=== PATIENT | female | born 1960 | race African-American/Black ===

== ENCOUNTER 2023-10-14 22:54 | Inpatient (IN) | payer OTHER, SELFPAY ==
[2023-10-14] VITALS (12 sets, daily range): BP systolic 80–119; BP diastolic 52–80; BMI 25.7; BMI 28.0
[2023-10-14 19:45] LABS: Glucose - Point of Care 227 mg/dl (70-99)
[2023-10-14 20:22] LABS: AST (SGOT) 502 U/L (14-36); Alkaline Phosphatase 150 U/L (38-126); Blood Urea Nitrogen 18 mg/dl (7-17); Calcium 8.5 mg/dl (8.4-10.2); Carbon Dioxide 18 mmol/L (22-30); Chloride 107 mmol/L (98-107); Estimated Creatinine Clearance 43 ml/min; Glucose 237 mg/dl (70-99); Potassium 3.7 mmol/L (3.5-5.1); Sodium 136 mmol/L (135-145); Total Bilirubin 1.2 mg/dl (0.2-1.3); Total Protein 5.7 g/dl (6.3-8.2); eGFR 39.65
[2023-10-14 20:31] LABS: ALT (SGPT) 193 U/L (0-35)
[2023-10-14 20:53] LABS: % Basophils 0.5 % (0-2); % Eosinophils 0.2 % (0-6); % Immature Granulocytes 1.2 % (0-0.5); % Lymphocytes 6.3 % (20.5-51.1); % Monocytes 1.1 % (1.7-9.3); % Neutrophils 90.7 % (42.2-75.2); Absolute Basophils 0.1 10^3/uL (0-0.2); Absolute Immature Granulocytes 0.1 10^3/uL (0-0.05); Absolute Lymphocytes 0.7 10^3/uL (1.2-3.4); Absolute Monocytes 0.1 10^3/uL (0.1-0.6); Hematocrit 33.7 % (37.0-47.0); Hemoglobin 10.9 g/dL (12.0-16.0); Mean Corp Hgb Conc. 32.3 g/dL (33.0-37.0); Mean Corpuscular Hgb 27.7 pg (27.0-31.0); Mean Corpuscular Volume 85.5 fL (81.0-99.0); Mean Platelet Volume 12.6 fL (7.4-10.4); Nucleated Red Blood Cells % 0 %; Platelet Count 81 10^3/uL (130-400); Red Blood Cell Count 3.94 10^6/uL (4.20-5.40); Red Cell Dist. Width 13.6 % (11.5-14.5); White Blood Cell Count 11.1 10^3/uL (4.8-10.8)
--- NOTE | 2023-10-14 20:53 | ED.GENMED ---
History of Present Illness
General
Chief Complaint: Blood Pressure Problem
Source: patient
Exam Limitations: none
Time Seen by Provider: 10/14/23 20:20
Nursing documentation reviewed up to this point in time: agreed with
History of Present Illness
History of Present Illness:
The patient is a 62-year-old female with a past medical history of insulin-dependent diabetes who reports she has not been feeling well since yesterday. Patient reports that she feels lightheaded, fatigued, feels warm, and has right hip pain.
Patient also reports lack of appetite. She denies fever, abdominal pain, cough, chest pain or shortness of breath. Patient reports that her right hip pain was so severe that she was unable to walk today so her called 911. When paramedics
arrived, patient was found to be extremely hypotensive. Patient denies any injury to the hip. Patient reports she recently had a CAT scan done of her right ear and jaw area due to several weeks of right-sided jaw pain.
Past History
Past History
ED Past Medical History: Arrthythmia (History of SVT), Hypercholesterolemia and IDDM
ED Past Surgical History: Cardiac (Cardiac ablation in 2003) and Other (Spinal fusion in 1988, tubal ligation and 1999, a D&C in 2001,)
Social History
Tobacco: Non-smoker
Alcohol: None
Drug: None
Personal:
Living: with family
Employment: Employed
Family History
Family History: Diabetes and Hypertension
Review of Systems
Review of Systems
Allergies reviewed?: Yes
Other source history: family
All Other Systems: ROS reviewed and negative except as documented in HPI and ROS
Constitutional: Reports fatigue
EENT: Reports other (Chronic right-sided jaw pain)
Respiratory: Reports no symptoms
Cardiac: Reports no symptoms
ABD/GI: Reports anorexia
: Reports no symptoms
Musculoskeletal: Reports joint pain (Right hip pain)
Skin: Reports no symptoms
Neurological: Reports no symptoms
Endocrine: Reports no symptoms
Hematologic/Lymphatic: Reports no symptoms
Psychiatric: Reports no symptoms
Phy Exam
Physical Exam
Physical Exam:
Physical Exam
General: Patient appears flushed but in no acute distress
Neck: supple. Dry mucous membrane
Heart: Tachycardic
Lungs: no acute respiratory distress. clear bilaterally
Abdomen: normal bowel sounds. Mild right lower quadrant tenderness and right lower flank tenderness
Neuro: alert and oriented. no focal neurological deficits
Skin: no rash
Psychiatric: well kept. interactive and cooperative
Extremities: no edema. no calf tenderness. negative homans. good distal pulses. Patient able to fully flex and extend right hip with minimal discomfort. No deformity or erythema right hip.
Course
Orders/Labs/Results
Orders:
Orders
10/14/23 19:52
Alcohol Urgent
CMP [Comprehensive Metabolic Panel] Urgent
Complete Blood Count/With Diff Urgent
10/14/23 20:55
CT Abd/pelvis W Iv Cont Urgent
Comment:
Reason For Exam: hypotensive, increased LFTs, acute R hip pain
10/14/23 21:33
Lactic Acid Urgent
Blood Culture Urgent
LISSETT Source: Blood/Venous
Specimen Description:
10/14/23 21:44
Electrocardiogram (*1) Urgent
Reason for Study: Tachycardia
EKG- Treatment ONCE
10/14/23 21:54
Piperacillin/Tazo 4.5 Gram [Zosyn] 4.5 gram in 100 ml IV NOW
10/14/23 21:57
0.9% Sodium Chloride 1000 ml [Nss] 1,500 ml IV BOLUS
10/14/23 22:11
Urinalysis Reflex To Culture Urgent
Date Specimen was Collected: 10/14/23
Time Specimen was Collected: 22:10
Urine Microscopic Reflex Cult Urgent
Urine Culture Urgent
LISSETT Source: U
Specimen Description:
Date Specimen was Collected: 10/14/23
Time Specimen was Collected: 22:10
10/14/23 22:12
Add On- LAB Urgent
Tests Added?: alcohol
10/14/23 22:30
Admit/Transfer Patient As Directed
Co-Sign Provider:
Level of Care: Inpatient admission
Assign to:: IMU- Intermediate Care
Physician / Group: daniel
Diagnosis: sepsis uti
Reason for Hospitalization: uti
Expected length of stay greater than two midnights?: Yes
ELOS- Estimated Length of Stay in days: 2
I certify the patient meets the requirements for IP care: Yes
PRN Pain Medication Management As Directed
May give lesser potent ordered pain med per pt: Yes
preference::
Protocol:: Medication orders for pain may be administered in a
manner that supports deferring to patient preference
when the pt is:
- Requesting an ordered lesser potent pain medication.
Least to most potent pain medications are defined
as: acetaminophen < NSAID < tramadol < opioids
(morphine, oxycodone, hydromorphone).
- Requesting a lesser dose of the same medication IF
ORDERED.
- Requesting a less intrusive route of administration
if both routes are prescribed by the provider (PO <
IV).
10/14/23 22:31
Code Status As Directed
Resuscitation Status: Full Code
10/14/23 22:32
Vancomycin [Vancocin] 2,000 mg 0.9% Sodium Chloride 500 ml [Nss] 500 ml IV NOW
10/14/23 23:00
Flush (0.9% Sodium Chloride) [Flush (Nss)] See Dose Instructions IV PER PROTOCOL
Abnormal Lab Results
10/14/23 10/14/23 10/14/23
19:44 19:52 21:33
WBC 11.1 H 10^3/uL
(4.8-10.8)
RBC 3.94 L 10^6/uL
(4.20-5.40)
Hgb 10.9 L g/dL
(12.0-16.0)
Hct 33.7 L %
(37.0-47.0)
MCHC 32.3 L g/dL
(33.0-37.0)
Plt Count 81 L 10^3/uL
(130-400)
MPV 12.6 H fL
(7.4-10.4)
Abs Immat Gran (auto) 0.1 H 10^3/uL
(0-0.05)
Absolute Neuts (auto) 10.0 H 10^3/uL
(1.4-6.5)
Absolute Lymphs (auto) 0.7 L 10^3/uL
(1.2-3.4)
Immature Gran % 1.2 H %
(0-0.5)
Neutrophils % 90.7 H %
(42.2-75.2)
Lymphocytes % 6.3 L %
(20.5-51.1)
Monocytes % 1.1 L %
(1.7-9.3)
Carbon Dioxide 18 L mmol/L
(22-30)
BUN 18 H mg/dl
(7-17)
Creatinine 1.5 H mg/dL
(0.6-1.0)
Glucose 237 H mg/dl
(70-99)
Lactic Acid 5.1 H* mmol/L
(0.7-2.0)
AST 502 H* U/L
(14-36)
ALT 193 H U/L
(0-35)
Alkaline Phosphatase 150 H U/L
(38-126)
Total Protein 5.7 L g/dl
(6.3-8.2)
Albumin 3.0 L g/dl
(3.5-5.0)
Ur Occult Blood Reflex
Leukocyte Esterase Rfl
Urine RBC
Urine WBC (Reflex)
Urine Bacteria (Reflex)
Urine Albumin (Reflex)
POC Glucose 227 H mg/dl
(70-99)
10/14/23
22:11
WBC
RBC
Hgb
Hct
MCHC
Plt Count
MPV
Abs Immat Gran (auto)
Absolute Neuts (auto)
Absolute Lymphs (auto)
Immature Gran %
Neutrophils %
Lymphocytes %
Monocytes %
Carbon Dioxide
BUN
Creatinine
Glucose
Lactic Acid
AST
ALT
Alkaline Phosphatase
Total Protein
Albumin
Ur Occult Blood Reflex 4+ A
(Negative)
Leukocyte Esterase Rfl 2+ A
(Negative)
Urine RBC 21-25 A /HPF
(0-2)
Urine WBC (Reflex) >100 A /HPF
(0-5)
Urine Bacteria (Reflex) Moderate A
(Negative)
Urine Albumin (Reflex) 1+ A
(Neg - Trace)
POC Glucose
10/14/23 19:52
10/14/23 19:52
Vital Signs
Initial and Last Documented VS:
Initial Vital Signs
Pulse Resp Pulse Ox
122 20 98
10/14/23 19:38 10/14/23 19:38 10/14/23 19:38
Last Documented Vital Signs
Temp Pulse Resp BP Pulse Ox
98.9 F 127 22 100/60 100
10/14/23 22:21 10/14/23 22:30 10/14/23 22:30 10/14/23 22:30 10/14/23 22:30
MDM/Problems Addressed
Differential Diagnosis Includes:
Acute viral illness, sepsis, cancer with mets to liver
MDM/Problems Addressed:
Patient presents with acute fatigue, increased LFTs and right hip pain
Chronic conditions affecting care: DM
Acute Exacerbation and/or Progression of Chronic Illness: DM
*Pulse Oximetry
Patient hypoxic: no
*EKG
Interpreted by ED Provider?: Yes
Interpretation: abnormal
Comparison EKG: no comparison EKG present
Rate: tachycardiac
Rhythm: sinus
[place]: left axis deviation
Interval: normal interval
QRS Pattern: normal QRS
Ischemia: non-specific ST changes
*Machine Silver Stripper Interpretation
Rate: tachycardiac
Interpretation: abnormal
Rhythm: sinus
*Critical Care Note
Total Time (30-74mins, 75-104mins- exclusive of procedures): 65 min
comment:
65 minutes of critical care given to the patient including frequent reassessments of her mental status, heart rate, blood pressure, reviewing her CT report, speaking to the family, the patient and the hospitalist
Data Reviewed
Review of Other/Old Records Reveals: Testing (Cardiac stress test done in 2011 shows no significant abnormalities)
Source: patient and spouse
ED Attending Note
-
Portions of this chart may have been created with voice recognition software.� Occasional wrong word or��sound alike� substitutions may have occurred due to the inherent limitations of voice recognition software.
Discharge Plan
Departure
Patient Disposition: Admit
Date of Disposition: 10/14/23
Time of Disposition: 22:00
Admit to: Telemetry
Presentation/result/management discussed w/ accepting MD/DO: Hospitalist
Patient with high blood pressure during this ER visit?: No
Condition: Fair
Discharge Problem:
Elevated LFTs, Sepsis, UTI (urinary tract infection)
Interventions
Interventions:
*Risk Screen - Suicide Last Done: 10/14/23 19:47
*General Assessment Last Done: 10/14/23 19:40
*Neglect/Abuse Screening Last Done: 10/14/23 19:47
ED- Fall Risk Assessment Last Done: 10/14/23 19:47
*ED COVID-19 Vaccine History Last Done: 10/14/23 19:40
[2023-10-14 21:55] LABS: Lactic Acid 5.1 mmol/L (0.7-2.0)
[2023-10-14] MEDS: ZOSYN 100 IV (22:15)
[2023-10-14] MEDS: NSS 1500 IV (22:15)
[2023-10-14 22:25] LABS: Urine Albumin 1+ (Neg - Trace); Urine Bilirubin Negative (Negative); Urine Character Slightly Cloudy (Clear); Urine Color Yellow; Urine Glucose Negative (Negative); Urine Ketone Negative (Negative); Urine Leukocyte 2+ (Negative); Urine Nitrite Negative (Negative); Urine Occult Blood 4+ (Negative); Urine Specific Gravity 1.005 (<1.030); Urine Urobilinogen 1+ (Neg - 1+)
[2023-10-14 22:41] LABS: Urine Bacteria Moderate (Negative); Urine Red Blood Cell 21-25 /HPF (0-2); Urine Squamous Cell >30 /LPF (Few); Urine White Cell >100 /HPF (0-5)
--- NOTE | 2023-10-14 22:41 | HPS.HSE ---
Family Physician
-
Family Physician: Denise Johnson
Chief Complaint
-
right hip pain
History of Present Illness
62-year-old female past medical history of diabetes, SVT, hypercholesteremia, presenting for confusion, lightheadedness, fatigue, feeling warm and right hip pain since yesterday. She also has lack of appetite. Pain of the right hip radiates to her
right groin. She had vomiting and some loose stools today. Denies fever, cough, chest pain or shortness of breath. Pain is so severe that she was unable to walk today and has been called 911. Paramedics arrived she was extremely hypotensive. She
denies any hip injury. Denies any urinary symptoms such as burning or frequency or blood in the urine.
He has a history of kidney stones and states that she had similar pain after prior urological interventions in the past.
Denies smoking or alcohol use.
Medical History
Past Medical History
Past Medical History: Reports Other (diabetes, SVT, hypercholesteremia)
Past Surgical History: Reports Other ( Cardiac (Cardiac ablation in 2003) and Other (Spinal fusion in 1988, tubal ligation and 1999, a D&C in 2001,))
Social History
Tobacco: Non-smoker
Alcohol: None
Drug: None
Family History
Family History: Not pertinent
Allergies / Home Medications
Allergies reflects when Allergies were last updated in [employer].
Home Medications with original date entered in [employer]
Allergy/Medication List:
Allergies
Allergy/AdvReac Type Severity Reaction Status Date / Time
No Known Allergies Allergy Verified 12/13/16 19:11
Home Medications
acetaminophen 500 mg tablet (Tylenol Extra Strength) 500 mg PO DAILYPRN PRN mild pain 10/09/11
cyanocobalamin (vitamin B-12) 500 mcg tablet (Vitamin B-12) 1,000 mcg PO DAILY 09/19/15
clobetasol 0.05 % topical cream 1 applic topical DAILYPRN PRN eczema 10/14/23
gabapentin 800 mg tablet 800 mg PO BID 10/14/23
insulin glargine 100 unit/mL (3 mL) subcutaneous pen (Lantus Solostar U-100 Insulin) 0 unit SC DAILY 10/14/23
lidocaine 5 % topical patch 1 patch topical DAILYPRN PRN lower back 10/14/23
linaclotide 145 mcg capsule (Linzess) 145 mcg PO DAILY 10/14/23
oxycodone-acetaminophen 5 mg-325 mg tablet 1 tab PO Q8HPRN PRN severe pain 10/14/23
pantoprazole 40 mg tablet,delayed release 40 mg PO DAILY 10/14/23
rosuvastatin 20 mg tablet 20 mg PO DAILY 10/14/23
tirzepatide 7.5 mg/0.5 mL subcutaneous pen injector (Mounjaro) 7.5 mg SC WE 10/14/23
Review of Systems
-
History Source: Patient
A 12 point ROS was completed and negative except as noted: Yes
Constitutional: Reports No Symptoms
EENT: Reports No Symptoms
Respiratory: Reports No Symptoms
Cardiac: Reports No Symptoms
Abdomen/GI: Reports See HPI
: Reports See HPI
Musculoskeletal: Reports No Symptoms
Skin: Reports No Symptoms
Neurological: Reports No Symptoms
Endocrine: Reports No Symptoms
Hematologic/Lymphatic: Reports No Symptoms
Psych: Reports No Symptoms
Physical Exam
Vital Signs
Vital Signs
Temp Pulse Resp BP Pulse Ox
98.9 F 127 22 100/60 100
10/14/23 22:21 10/14/23 22:30 10/14/23 22:30 10/14/23 22:30 10/14/23 22:30
Physical Exam
General: Well Developed, Well Nourished and No Apparent Distress
HEENT: NormoCephalic, Moist mucous membranes and Atraumatic
Respiratory: Clear
Cardiac: S1/S2 and Regular Rhythm; No Murmur or Rub
GI: Soft, Non Tender, Non Distended and Normal Bowel Sounds; No Organomegaly
Rectal: Deferred by Provider
Musculoskeletal: No Clubbing, No Cyanosis and No Edema
Skin: No Rash
Neuro: Nonfocal/grossly intact
Laboratory Results
-
10/14/23 19:52
10/14/23 19:52
Laboratory Results
Lactic Acid 5.1 mmol/L (0.7-2.0) H* 10/14/23 21:33
Total Bilirubin 1.2 mg/dl (0.2-1.3) 10/14/23 19:52
AST 502 U/L (14-36) H* 10/14/23 19:52
ALT 193 U/L (0-35) H 10/14/23 19:52
Alkaline Phosphatase 150 U/L (38-126) H 10/14/23 19:52
Data Reviewed
-
Lab Data: Labs Reviewed by me
Old Records: Reviewed
Impression/Plan
-
IMPRESSION:
PLAN:
# Sepsis (hypotension, leukocytosis, tachycardia, lactic acidosis) likely secondary to UTI
-Urinalysis pending
-CT abdomen pelvis shows either crossed fused renal ectopia which is worsened kidney, small volume air in the proximal ureter and urinary bladder of uncertain etiology which could be secondary to urinary tract infection or iatrogenic air from
ureterovesicular reflux/urinary tract fistula, nonobstructing right renal calculus
-Blood culture
-IV fluids
-Vanco and Zosyn given, continue Zosyn
-Urology consulted, no role for urgent intervention at this time
# Transaminitis likely secondary to shock liver from hypotension
-No bilirubin elevation to suggest CBD stone
-Continue to monitor
# Acute kidney injury
-IV fluids
Type 2 diabetes
-Continue Levemir but reduce from 20 units to 10 units
-Insulin sliding scale
History of SVT
-Continue metoprolol
Hypercholesterolemia
-Continue statin
Full code
DVT prophylaxis�heparin
Regular diet
[2023-10-14 22:47] LABS: Alcohol None Detected
[2023-10-14] MEDS: VANCOCIN 540 MG IV (23:07)
[2023-10-15] VITALS (36 sets, daily range): BP systolic 69–161; BP diastolic 45–132
[2023-10-15] MEDS: NSS 1000 IV ×3 (00:17→16:43)
--- NOTE | 2023-10-15 01:07 | PTCARENOTE ---
Received pt from ED RN. Pt pulled from the stretcher to our bed. Pt is AAOx3. Sinus tach on the monitor. On RA O2 sat 95%, lungs clear. Incont of stool @ times. NS infusing @ 100 ml/hr. CHG bath provided. Pt is laying comfortable in bed with call
schaffer in reach.
[2023-10-15 02:18] LABS: Lactic Acid 5.6 mmol/L (0.7-2.0)
--- NOTE | 2023-10-15 02:23 | PTCARENOTE ---
Pt with a bloody BM, ASH Silva notified, Heparin on hold
[2023-10-15] MEDS: ZOSYN 50 IV ×4 (04:03→20:44)
[2023-10-15 06:15] LABS: Hematocrit 36.6 % (37.0-47.0); Hemoglobin 12.2 g/dL (12.0-16.0); Mean Corp Hgb Conc. 33.3 g/dL (33.0-37.0); Mean Corpuscular Hgb 27.5 pg (27.0-31.0); Mean Corpuscular Volume 82.6 fL (81.0-99.0); Mean Platelet Volume 11.4 fL (7.4-10.4); Platelet Count 93 10^3/uL (130-400); Red Blood Cell Count 4.43 10^6/uL (4.20-5.40); Red Cell Dist. Width 14.1 % (11.5-14.5); White Blood Cell Count 21.1 10^3/uL (4.8-10.8)
[2023-10-15 06:19] LABS: Lactic Acid 4.5 mmol/L (0.7-2.0)
[2023-10-15 06:20] LABS: ALT (SGPT) 146 U/L (0-35); AST (SGOT) 253 U/L (14-36); Alkaline Phosphatase 120 U/L (38-126); Blood Urea Nitrogen 19 mg/dl (7-17); Calcium 7.8 mg/dl (8.4-10.2); Carbon Dioxide 19 mmol/L (22-30); Chloride 112 mmol/L (98-107); Estimated Creatinine Clearance 50 ml/min; Glucose 212 mg/dl (70-99); Potassium 3.6 mmol/L (3.5-5.1); Sodium 139 mmol/L (135-145); Total Bilirubin 0.9 mg/dl (0.2-1.3); Total Protein 5.9 g/dl (6.3-8.2); eGFR 47.08
[2023-10-15] MEDS: LOPRESSOR 5 MG IV (06:22)
[2023-10-15] MEDS: TYLENOL 650 MG PO ×2 (06:23→23:48)
--- NOTE | 2023-10-15 06:24 | PTCARENOTE ---
Pt HR 120s-130s, with activity HR goes into high 140s. ACCREDITATION SPECIALIST Silva notified, PRN Lopressor given (see MAR).
[2023-10-15 06:44] LABS: Absolute Neutrophils -Man Diff 17.7 10^3/uL (1.4-6.5); Band Neutrophils 16 % (0-3); Lymphocytes 3 % (20-51); Metamyelocytes 7 % (-); Monocytes 6 % (2-9); Segmented Neutrophils 68 % (42-75); Total Cells Counted 100
[2023-10-15 06:46] LABS: Normal RBC Morphology Yes; Platelets Checked Yes; Toxic Granulation 1+; Vacuolated Segs Occasional
[2023-10-15] MEDS: NSS 500 IV ×2 (08:22→09:43)
[2023-10-15 08:30] LABS: Glycohemoglobin (HgbA1c) 7.6 % (4.0-5.6)
--- NOTE | 2023-10-15 09:00 | W.PN.UPDATE ---
Addendum entered and electronically signed by Daniel Hernandez MD 10/15/23 09:15:
Correction-UA specimen was obtained by straight cath instrumentation in the ER yesterday-might explain the air in the bladder and the right ureter.
Original Note:
Update Note
Progress Note Update
I saw and evaluated the patient. I reviewed the resident�s note and agree with findings and plan as documented in the resident�s note.
Patient this morning feels weak and tired. Feeling lightheaded.
No nausea or vomiting this am.
Rt flank pain radiating to right groin is better with pain medications.
Urine was dark but no dysuria or frequency.
UTI and stone issue needing surgery in like last year. Known to have abnormal kidney anatomy.
One day prior coming to ER she had a CT of her face/neck for right jaw pain - was going on for weeks;PCP ordered CT and made a referral to ENT. No jaw pain today at rest.
Pt is tachy and hypotensive this morning. Alert and oriented. Got IV lopressor early hours of this morning . Rhythm seems to be SR on monitor.
Assessment persistent. Tachycardic.
Few crackles in the left lung.. Saturating well on room air. No respiratory complaints.
Right flank tenderness elicited.
No pain with the right hip joint movements.
Labs noted
Septic shock with suspected source with possible pyelonephritis . Abnormal urinalysis, right flank pain and tenderness, structurally abnormal kidney. There is some air in the right ureter and bladder of unclear etiology with UTI in
differential( she didnt have any bladder catherization known). No obstruction renal stone evident.
Will challange with another fluid bolus and consider vasopressors if needed. CW emp abx . Consult ID . Urology input pending. Culture data pending.
KATEY noted -supsected hemodynamics related. Improved since yesterday. Continue to follow.
Lactic acidosis secondary to sepsis. Continue to monitor hemodynamics and response to IV fluids
Transaminitis noted may be hemodynamics related versus sepsis. No biliary issue evident on the CT of the abdomen pelvis. No right upper quadrant tenderness.
Total time spent on today's encounter was 52 minutes which included time spent in counseling the patient regarding diagnosis and treatment plan as listed above, goals of care, and symptom management. Case was discussed with nursing staff,
specialists . All labs and imaging personally reviewed by me. Remainder the time spent in detailed review of previous records, lab data, imaging, and other medical provider documentation.
[2023-10-15 09:02] LABS: Glucose - Point of Care 182 mg/dl (70-99)
[2023-10-15] MEDS: NEURONTIN 800 MG PO ×2 (09:04→20:41)
[2023-10-15] MEDS: CRESTOR 20 MG PO (09:04)
[2023-10-15] MEDS: VITAMIN B-12 1000 MCG PO (09:04)
[2023-10-15] MEDS: PROTONIX 40 MG PO (09:04)
[2023-10-15] MEDS: LANTUS 0.1 UNITS SC (09:04)
[2023-10-15] MEDS: LINZESS 145 MCG PO (09:12)
[2023-10-15] MEDS: NOVOLOG FLEXPEN-LOW RESISTANCE 1 UNITS SC ×3 (09:30→16:49)
--- NOTE | 2023-10-15 09:38 | W.PN.URO.CBU ---
Today's Communication / Plan
-
No role for urgent urologic intervention
Await blood and urine cultures
Assessment / Plan
-
History of nephrolithiasis: possible passed stone. No evidence of ureteral obstruction presently
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
Diagnosis
-
Date of Service: October 15, 2023
-
Patient Diagnosis:
Sudden onset of right flank to hip pain yesterday with chills but w/o fever, dysuria, urgency, frequency or gross hematuria
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
Air noted in bladder and right upper renal unit collecting system (patient was reportedly straight-cathed in the ED yesterday)
History of nephrolithiasis: s/p ureteroscopic laser lithotripsy July 2022 ([facility])
Subjective
-
Fatigued
Right flank/hip pain responding to narcotic
No voiding dysfunction
Objective
-
Vital Signs
Temp Pulse Resp BP Pulse Ox
98.1 F 123 21 73/49 95
10/15/23 07:16 10/15/23 08:05 10/15/23 08:05 10/15/23 08:05 10/15/23 08:05
Intake and Output
10/14/23 10/15/23 10/16/23
06:59 06:59 06:59
Intake Total 700 / 700
Balance 700 / 700
Intake:
IV fluids (Total) 700 / 700
Other:
Number of approximated SMALL 1
amounts of urine
Laboratory Results
10/15/23 05:49
10/15/23 05:49
CT scan images personally reviewed
Review of Systems
-
Constitutional: Fatigue
Respiratory: No Symptoms
Cardiac: No Symptoms
Abdomen/GI: Abdominal Pain
: No Symptoms
Neurological: No Symptoms
Physical Exam
-
General - ill-appearing, no acute distress
Abdomen - soft, non-tender
Skin - warm & dry with no rash
Neuro - AOx3, no motor deficits
Counseling
-
Continue broad spectrum antibiotics
Await blood and urine cultures
Consider repeat imaging in 24 to 48 hours if clinical condition deteriorates
Will follow
--- NOTE | 2023-10-15 09:56 | W.PN.HOSP.TC ---
Today's Communication/Plan
-
Monitor blood pressure
Awaiting blood culture and urine culture results
Continue antibiotics
Hold lopressor
Start Levophed
Assessment / Plan
Assessment / Plan
IMPRESSION: 62-year-old female with past medical history of diabetes, SVT, nephrolithiasis presenting to the ED with right flank pain radiating to the right groin, lack of appetite lightheadedness, chills and fatigue. SIRS positive in ED
PLAN:
Sepsis
Likely due to urinary tract infection
U/C pending
B/C pending
U/A�SG 1.005, moderate bacteria, esterase 2+, WBC >100, RBC 21-25
Continue Zosyn (day 2)
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 Small volume proximal ureter and urinary bladder of uncertain etiology (could be secondary to UTI). At least one obstructing right renal calculus, no
cholelithiasis or biliary tract dilatation.
UA specimen was obtained by straight cath instrumentation in the ED likely explaining small-volume air in the urinary tract.
Urology consulted�no role for urgent intervention, await blood and urine cultures
Hypotension
Hold Lopressor
Bolus IV fluid, patient did respond to IV fluid therapy, will start Levophed
Monitor BP
Transaminitis
Likely secondary to shock liver from hypotension
Liver enzymes downtrending
No bilirubin elevation, no evidence of biliary duct dilatation on abdominal pelvic CT
History of SVT
Patient did not use metoprolol for the last year
Hold metoprolol
Hyperlipidemia
Continue statin
Full code
DVT prophylaxis heparin
Anticipated Discharge: > 48 hours
Subjective/Interval History
-
Date of Service: October 15, 2023
Objective Data
-
Labs:
Laboratory Results
10/15/23
05:49
WBC 21.1 H
Hgb 12.2
Hct 36.6 L
Plt Count 93 L
Sodium 139
Potassium 3.6
Chloride 112 H
Carbon Dioxide 19 L
BUN 19 H
Creatinine 1.3 H
Glucose 212 H
Calcium 7.8 L
Total Bilirubin 0.9
AST 253 H
ALT 146 H
Alkaline Phosphatase 120
Vital Signs:
Vital Signs
Temp Pulse Resp BP Pulse Ox
98.1 F 123 21 73/49 95
10/15/23 07:16 10/15/23 08:05 10/15/23 08:05 10/15/23 08:05 10/15/23 08:05
I&O
10/14/23 10/15/23 10/16/23
06:59 06:59 06:59
Intake Total 700 / 700
Balance 700 / 700
Review of Systems
-
History Source: Patient
Constitutional: Reports Weakness
EENT: Reports No Symptoms Reported
Respiratory: Reports No Symptoms
Cardiac: Reports No Symptoms
Abdomen/GI: Reports Other (Right flank pain )
Breast: Reports No Symptoms
Genitourinary: Reports No Symptoms
Musculoskeletal: Reports No Symptoms
Skin: Reports No Symptoms
Neuro: Reports Lightheadedness
Endocrine: Reports No Symptoms
Hematologic / Lymphatic: Reports No Symptoms
Allergy / Immunology: Reports No Symptoms
Physical Exam
-
Respiratory: Clear to Auscultation
Cardiac: Regular Rhythm
GI: Soft, Nontender, Nondistended and Normal Bowel Sounds
Genito-urinary: Costovertebral Angle Tend
Musculoskeletal: No Edema
Neuro: Awake, Alert and Oriented
Hematologic / Lymphatic: No Lymphadenopathy
Psych: Calm
--- NOTE | 2023-10-15 10:13 | PTCARENOTE ---
Received pt from table games shift manager RN. Pt AAOx3 but drowsy. Sinus Tach on groundhand. HRs 120s. Pt received PRN IV Lopressor 5mg at 0622 for HR > 100 bpm. At 0805 pt BP 73/49. Pt reports feeling tired and dizzy when sitting up. Dr. Hernandez notified.
NSS 500mL IV bolus ordered over one hour. After bolus pt BP 72/[address] Hernandez aware. Second NSS 500mL IV bolus ordered over one hour. Bolus currently infusing. Will recheck BP after bolus complete. If BPs not improved, plan to start pt on
Levo gtt to help with BP support. Pt resting in bed, call schaffer in reach.
[2023-10-15] MEDS: LEVOPHED 250 IV (11:41)
--- NOTE | 2023-10-15 12:04 | PTCARENOTE ---
Pt BP not improved after second IVF bolus. Levo gtt ordered and started at 2mcg/min through L wrist PIV inserted today. PIV with blood return. Pt educated to notify staff if any discomfort/swelling at PIV site. Titrating Levo gtt to MAP > 65.
[2023-10-15 12:17] LABS: Glucose - Point of Care 173 mg/dl (70-99)
--- NOTE | 2023-10-15 14:30 | CON.ID ---
Consultation
-
Date/Time Consultation Requested: 10/15/2023 08:33
Date/Time Consultation Performed: 10/15/2023 1400
Requesting Provider: Dr. Hernandez
Performing Provider: Dr. Mathew
Reason for Consultation: Complicated urinary tract infection
Chief Complaint / Past History
History of Present Illness
Alejandrina Pratt is a 8-year-old female with a significant past medical history of DM being evaluated at the request of Dr. Hernandez in regards to a complicated urinary tract infection. History is obtained from chart review, along with patient
interview.
The patient presents [facility] in the evening on 10/13 secondary to feeling unwell. At presentation she reported feeling lightheaded and warm and complained of generalized fatigue and some right hip pain. She reports that her right hip pain
was so severe that she was unable to ambulate and her called EMS. When they arrived they found her hypotensive, and she was emergently transported to the hospital. Here, she was found to be hypotensive, and have a leukocytosis, but she was
not febrile. Laboratory workup revealed lactic acidosis, and suspected urinary tract infection. She was started on empiric antibiotics, and cultures were obtained.
Infectious Diseases is asked to comment upon further antimicrobial management.
Currently, the patient reports ongoing lightheadedness, along with significant fatigue, but he notes that right flank discomfort has improved. She denies any history of dysuria. She denies any hematuria. She does report a prior history of
nephrolithiasis and that stones needed to be retrieved.
Past History
Additional Past Medical History:
DM
Dyslipidemia
Hx arrhythmia (SVT)
Additional Past Surgical History:
Cardiac ablation (2003)
Spinal fusion (1988)
Tubal ligation
D&C
Gastric sleeve
Ureteroscopy
Allergy History:
No Known Allergies Allergy (Verified 12/13/16 19:11)
Medications Reviewed: Yes
Current Antibiotics:
Zosyn 3.375 g IV every 6 hours
Social History
Tobacco: Non-Smoker
Alcohol: None
Drug: None
Personal:
Living: With Family
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
Family History
Family History: Not Pertinent
Review of Systems
Vital Signs
Temp Pulse Resp BP Pulse Ox
98.4 F 128 11 101/70 99
10/15/23 11:16 10/15/23 14:00 10/15/23 14:00 10/15/23 14:00 10/15/23 12:36
Physical Exam
Physical Exam
Constitutional: No Acute Distress, Comfortable and Non-toxic
Head: Normocephalic
Eyes: No Conjunctival Hemorrhage and Sclera Anicteric
Oral: No Thrush and No Ulcers
Cardiovascular: Regular Rate and S1/S2; Negative S3/S4 or Murmur
Pulmonary: Clear and Non Labored; Negative Wheezes, Rales or Rhonchi
Gastrointestinal: Soft, Non Tender and Non Distended
Genito-Urinary: CVA Tenderness (mild right sided)
Extremities: Negative Edema, Cyanosis or Erythema
Skin: Warm and Dry; Negative Rash or Jaundice
Neurological: Awake, Alert and Oriented
Psychological: Calm
Lab / Diagnostic Study Results
10/15/23 05:49
10/15/23 05:49
Abs Immat Gran (auto) 10^3/uL (0-0.05) 10/15/23 05:49
Absolute Neuts (auto) 10^3/uL (1.4-6.5) 10/15/23 05:49
Absolute Lymphs (auto) 10^3/uL (1.2-3.4) 10/15/23 05:49
Absolute Monos (auto) 10^3/uL (0.1-0.6) 10/15/23 05:49
Absolute Basos (auto) 10^3/uL (0-0.2) 10/15/23 05:49
Total Counted 100 10/15/23 05:49
Immature Gran % % (0-0.5) 10/15/23 05:49
Neutrophils % % (42.2-75.2) 10/15/23 05:49
Lymphocytes % % (20.5-51.1) 10/15/23 05:49
Monocytes % % (1.7-9.3) 10/15/23 05:49
Eosinophils % % (0-6) 10/15/23 05:49
Basophils % % (0-2) 10/15/23 05:49
Abs Neuts (Manual) 17.7 10^3/uL (1.4-6.5) H 10/15/23 05:49
Segmented Neutrophils 68 % (42-75) 10/15/23 05:49
Band Neutrophils 16 % (0-3) H 10/15/23 05:49
Lymphocytes (Manual) 3 % (20-51) L 10/15/23 05:49
Lactic Acid 4.5 mmol/L (0.7-2.0) H* 10/15/23 05:49
Ur Squamous Epith Cells >30 /LPF (Few) 10/14/23 22:11
Microbiology Results
Micro:
10/14/23 22:11 Urine Culture - Pending
Urine
10/14/23 21:33 Blood Culture - Pending
Blood/Venous
Imaging:
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 There is marked residual contrast within the urinary tract including the urinary bladder. A small volume of air in the
proximal ureter and urinary bladder of uncertain etiology. Likely at least 1 nonobstructing right renal calculus, but evaluation limited by residual contrast from CT of the prior day. No findings to suggest cholelithiasis or biliary tract
dilatation. Prior gastric surgery noted. Marked beam hardening artifact from metal hardware in the lumbar spine. Please see full dictation for additional detail. Film personally reviewed.
Assessment / Plan
Leukocytosis
Suspected urinary tract infection
Lactic acidosis
KATEY
Transaminitis
DM
Dyslipidemia
Hx arrhythmia (SVT)
Recommendations:
Continue with empiric Zosyn for the present.
Urine culture is currently pending, as are blood cultures.
Monitor white count and temperature. Current leukocytosis likely reactive.
Patient also reporting some diarrhea. C. diff testing to be performed.
[2023-10-15 16:06] LABS: Lactic Acid 3.7 mmol/L (0.7-2.0)
[2023-10-15 16:59] LABS: Glucose - Point of Care 191 mg/dl (70-99)
[2023-10-15 20:16] LABS: Lactic Acid 4.8 mmol/L (0.7-2.0)
--- NOTE | 2023-10-15 20:58 | PTCARENOTE ---
Pt tachy HR 130s-140s, reports say to hold Lopressor. ASH Marie notified.
[2023-10-15] MEDS: LR 500 IV (21:45)
--- NOTE | 2023-10-15 22:00 | PTCARENOTE ---
Pt lactic 4.8, ASH Marie notified, LR bolus ordered. Will recheck per protocol.
[2023-10-15 22:04] LABS: Glucose - Point of Care 407 mg/dl (70-99)
[2023-10-15 23:29] LABS: Glucose 205 mg/dl (70-99); Lactic Acid 3.9 mmol/L (0.7-2.0)
[2023-10-16] VITALS (24 sets, daily range): BP systolic 78–136; BP diastolic 52–87
[2023-10-16] MEDS: ZOSYN 50 IV ×2 (03:24→11:19)
[2023-10-16 03:38] LABS: Hematocrit 32.9 % (37.0-47.0); Hemoglobin 11.1 g/dL (12.0-16.0); Mean Corp Hgb Conc. 33.7 g/dL (33.0-37.0); Mean Corpuscular Hgb 27.3 pg (27.0-31.0); Mean Platelet Volume 12.2 fL (7.4-10.4); Platelet Count 95 10^3/uL (130-400); Red Blood Cell Count 4.06 10^6/uL (4.20-5.40); Red Cell Dist. Width 14.1 % (11.5-14.5); White Blood Cell Count 20.9 10^3/uL (4.8-10.8)
[2023-10-16 03:59] LABS: Absolute Neutrophils -Man Diff 18.8 10^3/uL (1.4-6.5); Band Neutrophils 8 % (0-3); Lymphocytes 5 % (20-51); Metamyelocytes 2 % (-); Monocytes 2 % (2-9); Myelocytes 1 % (-); Normal RBC Morphology Yes; Platelets Checked Yes; Segmented Neutrophils 82 % (42-75); Total Cells Counted 100
[2023-10-16 04:02] LABS: Lactic Acid 3.6 mmol/L (0.7-2.0)
[2023-10-16 04:19] LABS: ALT (SGPT) 95 U/L (0-35); AST (SGOT) 89 U/L (14-36); Albumin 2.7 g/dl (3.5-5.0); Alkaline Phosphatase 88 U/L (38-126); Blood Urea Nitrogen 22 mg/dl (7-17); Calcium 7.7 mg/dl (8.4-10.2); Carbon Dioxide 17 mmol/L (22-30); Chloride 114 mmol/L (98-107); Estimated Creatinine Clearance 55 ml/min; Glucose 167 mg/dl (70-99); Potassium 3.5 mmol/L (3.5-5.1); Sodium 140 mmol/L (135-145); Total Bilirubin 0.8 mg/dl (0.2-1.3); Total Protein 5.5 g/dl (6.3-8.2); eGFR 51.82
[2023-10-16] MEDS: NSS 1000 IV (05:18)
[2023-10-16 07:57] LABS: Glucose - Point of Care 207 mg/dl (70-99)
[2023-10-16 08:09] LABS: Glucose - Point of Care 110 mg/dl (70-99)
[2023-10-16] MEDS: NOVOLOG FLEXPEN-LOW RESISTANCE SC ×3 (08:35→17:45)
[2023-10-16] MEDS: CRESTOR 20 MG PO (08:36)
[2023-10-16] MEDS: PROTONIX 40 MG PO (08:36)
[2023-10-16] MEDS: NEURONTIN 800 MG PO ×2 (08:36→20:30)
[2023-10-16] MEDS: VITAMIN B-12 1000 MCG PO (08:36)
[2023-10-16] MEDS: LANTUS 0.1 UNITS SC (08:36)
--- NOTE | 2023-10-16 09:12 | W.PN.URO.CBU ---
Today's Communication / Plan
-
Continue current care plan
Await culture results
Assessment / Plan
-
History of nephrolithiasis: possible passed stone. No evidence of ureteral obstruction presently
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
---
Development of urine urgency with incontinence and w/o dysuria raises the possibility patient is in the midst of passing a stone
Diagnosis
-
Date of Service: October 16, 2023
-
Patient Diagnosis:
Sudden onset of right flank to hip pain yesterday with chills but w/o fever, dysuria, urgency, frequency or gross hematuria
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
Air noted in bladder and right upper renal unit collecting system (patient was reportedly straight-cathed in the ED yesterday)
History of nephrolithiasis: s/p ureteroscopic laser lithotripsy July 2022 ([facility])
Subjective
-
Patient with urine urgency w/o dysuria
Objective
-
Vital Signs
Temp Pulse Resp BP Pulse Ox
98.3 F 123 18 101/66 98
10/16/23 03:57 10/16/23 06:00 10/16/23 06:00 10/16/23 06:00 10/15/23 23:05
Intake and Output
10/15/23 10/16/23 10/17/23
06:59 06:59 06:59
Intake Total 700 / 700 3140 / 3140
Output Total 475 / 475
Balance 700 / 700 2665 / 2665
Intake:
Oral fluids 840 / 840
IV fluids (Total) 700 / 700 2200 / 2200
IV piggybacks 100 / 100
Output:
Urine, Voided 475 / 475
Other:
Number of approximated SMALL 1
amounts of urine
Number of approximated MODERATE 1
amounts of urine
Number of approximated LARGE 1
amounts of urine
How many times incontinent 1
MODERATE amount urine
How many times incontinent 1
SATURATED amount urine
Laboratory Results
10/16/23 03:28
10/16/23 03:28
Review of Systems
-
Constitutional: Fatigue
Respiratory: No Symptoms
Cardiac: No Symptoms
Abdomen/GI: Abdominal Pain
: Frequency, Incontinence and Urgency
Neurological: No Symptoms
Physical Exam
-
General - well developed, well nourished, no acute distress
Abdomen - soft, non-tender, no CVAT
Skin - warm & dry with no rash
--- NOTE | 2023-10-16 10:40 | W.PN.UPDATE ---
Update Note
Progress Note Update
I saw and evaluated the patient. I reviewed the resident�s note and agree with findings and plan as documented in the resident�s note.
No fever or chills but still feels fatigued.
No nausea vomiting. Tolerating small amount of food.
This is a decrease frequency with no dysuria.
Afebrile. Hemodynamics have improved-patient currently off of Levophed.
s1+s2 regular ;Tachycardia which is regular noted.
Chest clear.
Lab data noted.
Gram-negative bacilli bacteremia noted.
Slight improvement in white count. Platelets are low but stable.
Improving creatinine noted.
Resolved septic shock. Off of vasopressors.
Continue with current antibiotics pending culture data for bacteremic UTI. Appreciate ID and nephrology input.
Patient is tachycardic which clinically sinus. Obtain twelve-lead EKG and will consider beta-blockade now that her hemodynamics are stable. She is known to have SVT in the remote past, had an ablation in 2002.
Check TSH
Total time spent on today's encounter was 52 minutes which included time spent in counseling the patient regarding diagnosis and treatment plan as listed above, goals of care, and symptom management. Case was discussed with nursing staff,
specialists, . All labs and imaging personally reviewed by me. Remainder the time spent in detailed review of previous records, lab data, imaging, and other medical provider documentation.
[2023-10-16] MEDS: LINZESS 145 MCG PO (11:19)
[2023-10-16] MEDS: LOPRESSOR 2.5 MG IV ×2 (11:38→18:40)
[2023-10-16] MEDS: TYLENOL 650 MG PO ×2 (11:59→17:57)
--- NOTE | 2023-10-16 12:54 | CM ---
Patient with Dx sepsis likely UTI, hypotension, transaminitis. Room air. Receiving IV Abx.
Met with patient who resides with her in a 2 story house with 2 NENO.
The patient has been independent in ADLs and ambulation, sometimes using her SPC when going out.
The patient says she is not working, she says she is active and drives.
No housing/food/utility/transport insecurity.
DME - [facility]
No prior VN or SNF.
PCP - Denise Johnson
Pharmacy - [facility]
The patient says her is at home and able to assist her as needed. She has a son who lives locally who helps out as needed, and a daughter.
Per nurse, patient requires assistance when OOB/ambulating in room due to weakness.
Message to Dr Hernandez requesting PT/OT.
Plan follow up after seen by PT/OT.
[2023-10-16 13:00] LABS: TSH 0.94 uIU/ml (0.47-4.68)
[2023-10-16 13:11] LABS: Lactic Acid 1.9 mmol/L (0.7-2.0)
--- NOTE | 2023-10-16 13:48 | W.PN.HOSP.TC ---
Today's Communication/Plan
-
Continue Zosyn
Monitor vitals; levophed if needed
IV hydration
PT/OT consult
Assessment / Plan
Assessment / Plan
IMPRESSION: 62-year-old female with past medical history of diabetes, SVT, nephrolithiasis presenting to the ED with right flank pain radiating to the right groin, lack of appetite lightheadedness, chills and fatigue. SIRS positive in ED
PLAN:
Sepsis
Likely due to urinary tract infection
UC and BC - Escherichia coli bacteremia
U/A�SG 1.005, moderate bacteria, esterase 2+, WBC >100, RBC 21-25
Continue Zosyn (day 2)
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 Small volume proximal ureter and urinary bladder of uncertain etiology (could be secondary to UTI). At least one obstructing right renal calculus, no
cholelithiasis or biliary tract dilatation.
UA specimen was obtained by straight cath instrumentation in the ED likely explaining small-volume air in the urinary tract.
Urology consulted�no role for urgent intervention, await blood and urine cultures
Lactic acid trended down to within normal limits - 1.9 on 10-16-23.
Hypotension
Hold Lopressor
Bolus IV fluid, patient did respond to IV fluid therapy
Has not required Levophed since last night; MAP and other vitals stable and improving.
Monitor BP
Sinus tachycardia
Lopressor 2.5 mg once this morning.
Monitor.
Transaminitis
Likely secondary to shock liver from hypotension
Liver enzymes downtrending
No bilirubin elevation, no evidence of biliary duct dilatation on abdominal pelvic CT
History of SVT
Patient did not use metoprolol for the last year
Hold metoprolol
Hyperlipidemia
Continue statin
Full code
DVT prophylaxis heparin
Anticipated Discharge: > 48 hours
Subjective/Interval History
-
Date of Service: October 16, 2023
Objective Data
-
Labs:
Laboratory Results
10/16/23
03:28
WBC 20.9 H
Hgb 11.1 L
Hct 32.9 L
Plt Count 95 L
Sodium 140
Potassium 3.5
Chloride 114 H
Carbon Dioxide 17 L
BUN 22 H
Creatinine 1.2 H
Glucose 167 H
Calcium 7.7 L
Total Bilirubin 0.8
AST 89 H
ALT 95 H
Alkaline Phosphatase 88
Vital Signs:
Vital Signs
Temp Pulse Resp BP Pulse Ox
98.4 F 135 33 118/69 98
10/16/23 07:40 10/16/23 11:38 10/16/23 10:00 10/16/23 11:38 10/16/23 10:56
I&O
10/15/23 10/16/23 10/17/23
06:59 06:59 06:59
Intake Total 700 / 700 3140 / 3140
Output Total 475 / 475
Balance 700 / 700 2665 / 2665
Review of Systems
-
History Source: Patient
Constitutional: Reports Weakness
EENT: Reports No Symptoms Reported
Respiratory: Reports No Symptoms
Cardiac: Reports No Symptoms
Abdomen/GI: Reports Other (Right flank pain )
Breast: Reports No Symptoms
Genitourinary: Reports No Symptoms
Musculoskeletal: Reports No Symptoms
Skin: Reports No Symptoms
Neuro: Reports Lightheadedness
Endocrine: Reports No Symptoms
Hematologic / Lymphatic: Reports No Symptoms
Allergy / Immunology: Reports No Symptoms
Physical Exam
-
Respiratory: Clear to Auscultation
Cardiac: Regular Rhythm
GI: Soft, Nontender, Nondistended and Normal Bowel Sounds
Genito-urinary: Costovertebral Angle Tend
Musculoskeletal: No Edema
Neuro: Awake, Alert and Oriented
Hematologic / Lymphatic: No Lymphadenopathy
Psych: Calm
[2023-10-16 14:03] LABS: Glucose - Point of Care 73 mg/dl (70-99)
--- NOTE | 2023-10-16 14:17 | PTCARENOTE ---
Assumed care of pt this am. She is alert and oriented x 3. She is polite and calm. Staff had some difficulty obtaining lab work this am, but Lactic obtained and 1.9. Pt is sinus tachycardia and EKG completed to confirm rhythm and Dr. Hernandez notified
of results. Hr at 120-130 this am. Pt denies chest pain MAP 73 and IV Lopressor given per MD order. Pt lungs decreased with fine crackles in bases. Pt does not appear SOB or complain of SOB. Feels slow and weak, Incontinent of bowel and bladder. Pt
provided with a purewick at this time. She tells me that she was not incontinent prior to this admission. Mild headache resolved with p.o. Tylenol.
--- NOTE | 2023-10-16 16:14 | W.PN.ID1 ---
Date of Service
Date of Service: October 16, 2023
Today's Communication
Continue antibiotics. Transition to empiric meropenem.
Assessment / Plan
Leukocytosis
Suspected urinary tract infection
E. coli bacteremia
Lactic acidosis
KATEY
Transaminitis
DM
Dyslipidemia
Hx arrhythmia (SVT)
Recommendations:
Ongoing leukocytosis noted.
E. coli and blood cultures and urine culture.
Patient continues to feel unwell.
Will empirically broaden to meropenem pending further cultures.
Monitor white count and temperature.
Patient with diarrhea. C. diff testing negative.
����������������������������������������������������������
Chief Complaint
-: Bacteremia
Subjective / Review of Systems
Review of Systems: No Fever and No Chills
Vital Signs / Physical Exam
Vital Signs
Vital Signs
Temp Pulse Resp BP Pulse Ox
98.4 F 126 24 93/62 98
10/16/23 07:40 10/16/23 15:01 10/16/23 15:01 10/16/23 15:01 10/16/23 10:56
Physical Exam
Constitutional: No Acute Distress and Non-toxic
Eyes: Sclera Anicteric
Cardiovascular: S1/S2; Negative S3/S4
Pulmonary: Non Labored
Gastrointestinal: Soft, Non Tender, Non Distended, Normal Bowel Sounds, No Rebound and No Guarding
Genito-Urinary: Suprapubic Tenderness and CVA Tenderness (right)
Neurological: Awake and Alert
Psychological: Calm
Objective Data
Lab Data
Lab Results
10/16/23 03:28
10/16/23 03:28
Estimated Creat Clear 55 ml/min 10/16/23 03:28
Lactic Acid 1.9 mmol/L (0.7-2.0) 10/16/23 12:40
Total Bilirubin 0.8 mg/dl (0.2-1.3) 10/16/23 03:28
AST 89 U/L (14-36) H 10/16/23 03:28
ALT 95 U/L (0-35) H 10/16/23 03:28
Alkaline Phosphatase 88 U/L (38-126) 10/16/23 03:28
Most recent labs reviewed.
Micro Results:
10/14/23 21:33 Blood Culture - Preliminary
Blood/Venous Escherichia coli
Gram Stain - Preliminary
10/14/23 22:11 Urine Culture - Preliminary
Urine Gram negative bacilli
10/15/23 16:52 C. difficile GDH Antigen & Toxins - Final
Feces/Stool Negative for toxigenic C.difficile
Imaging:
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 There is marked residual contrast within the urinary tract including the urinary bladder. A small volume of air in the
proximal ureter and urinary bladder of uncertain etiology. Likely at least 1 nonobstructing right renal calculus, but evaluation limited by residual contrast from CT of the prior day. No findings to suggest cholelithiasis or biliary tract
dilatation. Prior gastric surgery noted. Marked beam hardening artifact from metal hardware in the lumbar spine. Please see full dictation for additional detail. Film personally reviewed.
[2023-10-16] MEDS: D5/0.45%NSS with KCL 10 MEQ 1000 IV (16:38)
[2023-10-16] MEDS: ZOSYN IV (17:13)
[2023-10-16 17:42] LABS: Glucose - Point of Care 142 mg/dl (70-99)
[2023-10-16] MEDS: STERILE WATER FOR INJECTION 10 ML IV (17:44)
[2023-10-16] MEDS: MERREM 500 MG IV (17:44)
[2023-10-16] MEDS: FLUSH (NSS) 2 FLUSH IV (18:41)
--- NOTE | 2023-10-16 18:51 | PTCARENOTE ---
Patient incontinent large liquid BM x 2 this shift. Pt refused her Linzess after first loose bm. Pt appetite fair, tolerating small amounts. Denies nausea. Heart rate in 130s this am , 1 x dose of IV Lopressor lowered into 110-120s then increasing
to 130s and increased tremors. IV Lopressor order obtained. SBP & MAP 104/76 (83). Pt continues on IMU level of care
[2023-10-16 21:56] LABS: Glucose - Point of Care 89 mg/dl (70-99)
[2023-10-17] VITALS (20 sets, daily range): BP systolic 103–159; BP diastolic 64–86; PULSE 120–136; O2SAT 100; BMI 29.6
[2023-10-17] MEDS: MERREM 500 MG IV ×2 (00:57→06:14)
[2023-10-17] MEDS: STERILE WATER FOR INJECTION 10 ML IV ×2 (00:57→06:14)
[2023-10-17] MEDS: LOPRESSOR 2.5 MG IV (00:57)
[2023-10-17 01:19] LABS: Glucose - Point of Care 83 mg/dl (70-99)
[2023-10-17] MEDS: D5/0.45%NSS with KCL 10 MEQ 1000 IV (02:15)
[2023-10-17 06:16] LABS: Hematocrit 32.7 % (37.0-47.0); Hemoglobin 11.1 g/dL (12.0-16.0); Mean Corp Hgb Conc. 33.9 g/dL (33.0-37.0); Mean Corpuscular Volume 79.6 fL (81.0-99.0); Mean Platelet Volume 12.6 fL (7.4-10.4); Platelet Count 79 10^3/uL (130-400); Red Blood Cell Count 4.11 10^6/uL (4.20-5.40); Red Cell Dist. Width 14.2 % (11.5-14.5); White Blood Cell Count 18.5 10^3/uL (4.8-10.8)
[2023-10-17 06:28] LABS: Blood Urea Nitrogen 14 mg/dl (7-17); Carbon Dioxide 20 mmol/L (22-30); Chloride 113 mmol/L (98-107); Estimated Creatinine Clearance 84 ml/min; Glucose 107 mg/dl (70-99); Potassium 3.2 mmol/L (3.5-5.1); Sodium 138 mmol/L (135-145); eGFR > 60.00
[2023-10-17 06:32] LABS: % Basophils 0.3 % (0-2); % Eosinophils 0.6 % (0-6); % Immature Granulocytes 0.3 % (0-0.5); % Monocytes 3.6 % (1.7-9.3); % Neutrophils 87.2 % (42.2-75.2); Absolute Basophils 0.1 10^3/uL (0-0.2); Absolute Eosinophils 0.1 10^3/uL (0-0.7); Absolute Immature Granulocytes 0.1 10^3/uL (0-0.05); Absolute Lymphocytes 1.5 10^3/uL (1.2-3.4); Absolute Monocytes 0.7 10^3/uL (0.1-0.6); Absolute Neutrophils 16.1 10^3/uL (1.4-6.5); Nucleated Red Blood Cells % 0 %
[2023-10-17 08:19] LABS: Glucose - Point of Care 118 mg/dl (70-99)
[2023-10-17] MEDS: KCL 40 MEQ PO (08:59)
[2023-10-17] MEDS: NOVOLOG FLEXPEN-LOW RESISTANCE SC ×3 (08:59→18:01)
[2023-10-17] MEDS: NEURONTIN 800 MG PO ×2 (09:00→19:58)
[2023-10-17] MEDS: VITAMIN B-12 1000 MCG PO (09:00)
[2023-10-17] MEDS: CRESTOR 20 MG PO (09:00)
[2023-10-17] MEDS: PROTONIX 40 MG PO (09:00)
[2023-10-17] MEDS: LANTUS 0.1 UNITS SC (09:00)
[2023-10-17] MEDS: LINZESS 145 MCG PO (09:00)
--- NOTE | 2023-10-17 09:25 | W.PN.UPDATE ---
Update Note
Progress Note Update
Seen and examined by me independently in collaboration with the medical office asst Kirsty.
Lab data and imaging data reviewed.
Patient says she is slowly improving. Still but fatigued.
No nausea or vomiting. Appetite poor but able to eat some oral diet. Loose stool but not frequent.
Persist to have frequency of urine but no dysuria.
Right flank pain persist though not worse.
No shortness of breath or chest pain. Denies palpitation.
Afebrile and hemodynamically stable. Off of pressors. Not hypoxic. Sinus tachycardia noted
Chest is clear.
Right flank tenderness persists.
E. coli bacteremia noted. Urine culture data pending. Improving leukocytosis. Improved/normalized creatinine. Hypokalemia noted.
Patient with structurally ectopic kidneys/crossover fused kidneys presents with bacteremic UTI. Initial CT of the abdomen pelvis unfortunately had the contrast from previous study so cannot determine if any stones. Now clinically patient is
improving. Continue with medical treatment including antibiotics and supportive care.
Discussed with urology this morning-no interventions planned.
Sinus tachycardia which I suspect is reactive. TSH is normal. No SVT. Will add a low-dose beta-pennie for now.
Hold Linzess while patient is having loose stools.
Discussed with at bedside.
Transfer to telemetry
--- NOTE | 2023-10-17 09:40 | W.PN.HOSP.TC ---
Today's Communication/Plan
-
Continue meropenem
Resume metoprolol 12.5 twice daily for sinus tachycardia
Transfer to telemetry
Monitor vital signs
Assessment / Plan
Assessment / Plan
IMPRESSION: 62-year-old female with past medical history of diabetes, SVT, nephrolithiasis presenting to the ED with right flank pain radiating to the right groin, lack of appetite, lightheadedness, chills and fatigue. SIRS positive in ED. Patient
still fatigued but has no new symptoms.
PLAN:
Sepsis
Likely due to urinary tract infection
UC -gram-negative bacilli BC - Escherichia coli bacteremia
U/A�SG 1.005, moderate bacteria, esterase 2+, WBC >100, RBC 21-25
D/C Zosyn, transition to meropenem (day 2)
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 Small volume proximal ureter and urinary bladder of uncertain etiology (could be secondary to UTI). At least one obstructing right renal calculus, no
cholelithiasis or biliary tract dilatation.
UA specimen was obtained by straight cath instrumentation in the ED likely explaining small-volume air in the urinary tract.
Urology consulted�no role for urgent intervention, await blood and urine cultures
Lactic acid trended down to within normal limits - 1.9 on 10-16-23.
Leukocytosis downtrending, no 18.5.
Hypotension
Hold Lopressor, resume low-dose Lopressor as patient is now normotensive and off of Levophed, sinus tachycardia
Bolus IV fluid, patient did respond to IV fluid therapy, started Levophed- blood pressure stable, off of Levophed now
Has not required Levophed since 2 days ago; MAP and other vitals stable and improving.
Monitor BP
Sinus tachycardia
Lopressor 12.5 mg twice daily.
Monitor heart rate
Transaminitis
Likely secondary to shock liver from hypotension
Liver enzymes downtrending
No bilirubin elevation, no evidence of biliary duct dilatation on abdominal pelvic CT
History of SVT
Patient did not use metoprolol for the last year
Resume metoprolol for sinus tachycardia
Hyperlipidemia
Continue statin
Full code
DVT prophylaxis heparin
Anticipated Discharge: > 48 hours
Subjective/Interval History
-
Date of Service: October 17, 2023
Objective Data
-
Labs:
Laboratory Results
10/17/23
05:38
WBC 18.5 H
Hgb 11.1 L
Hct 32.7 L
Plt Count 79 L
Sodium 138
Potassium 3.2 L
Chloride 113 H
Carbon Dioxide 20 L
BUN 14
Creatinine 0.8
Glucose 107 H
Calcium 8.0 L
Vital Signs:
Vital Signs
Temp Pulse Resp BP Pulse Ox
99.5 F 119 22 126/72 89
10/17/23 03:50 10/17/23 07:00 10/17/23 07:00 10/17/23 07:00 10/17/23 02:00
I&O
10/16/23 10/17/23 10/18/23
06:59 06:59 06:59
Intake Total 3140 / 3140 1889
Output Total 475 / 475
Balance 2665 / 2665 1889
Review of Systems
-
History Source: Patient
Constitutional: Reports Weakness
EENT: Reports No Symptoms Reported
Respiratory: Reports No Symptoms
Cardiac: Reports No Symptoms
Abdomen/GI: Reports Other (Right flank pain )
Breast: Reports No Symptoms
Genitourinary: Reports No Symptoms
Musculoskeletal: Reports No Symptoms
Skin: Reports No Symptoms
Neuro: Reports Lightheadedness
Endocrine: Reports No Symptoms
Hematologic / Lymphatic: Reports No Symptoms
Allergy / Immunology: Reports No Symptoms
Physical Exam
-
Respiratory: Clear to Auscultation
Cardiac: Regular Rhythm
GI: Soft, Nontender, Nondistended and Normal Bowel Sounds
Genito-urinary: Costovertebral Angle Tend
Musculoskeletal: No Edema
Neuro: Awake, Alert and Oriented
Hematologic / Lymphatic: No Lymphadenopathy
Psych: Calm
--- NOTE | 2023-10-17 10:34 | W.PN.ID1 ---
Date of Service
Date of Service: October 17, 2023
Today's Communication
Continue antibiotics; narrow to cefazolin.
Assessment / Plan
Leukocytosis
Complicated urinary tract infection / pyelonephritis
E. coli bacteremia
Lactic acidosis
KATEY
Transaminitis
DM
Dyslipidemia
Hx arrhythmia (SVT)
Recommendations:
Ongoing leukocytosis noted; suspect reactive
E. coli in blood cultures and urine culture - pansensitive
Narrow antibiotics to cefazolin.
Monitor white count and temperature.
����������������������������������������������������������
Chief Complaint
-: UTI and Bacteremia
Subjective / Review of Systems
Patient seen and examined. Reports she is feeling mildly improved today. Still with some right flank pain.
Review of Systems: No Fever and Chills
Vital Signs / Physical Exam
Vital Signs
Vital Signs
Temp Pulse Resp BP Pulse Ox
99.2 F 119 22 126/72 89
10/17/23 07:25 10/17/23 07:00 10/17/23 07:00 10/17/23 07:00 10/17/23 02:00
Physical Exam
Constitutional: No Acute Distress and Non-toxic
Eyes: Sclera Anicteric
Cardiovascular: S1/S2; Negative S3/S4
Pulmonary: Non Labored
Gastrointestinal: Soft, Non Tender, Non Distended, Normal Bowel Sounds, No Rebound and No Guarding
Genito-Urinary: Suprapubic Tenderness and CVA Tenderness (right)
Neurological: Awake and Alert
Psychological: Calm
Objective Data
Lab Data
Lab Results
10/17/23 05:38
10/17/23 05:38
Estimated Creat Clear 84 ml/min 10/17/23 05:38
Lactic Acid 1.9 mmol/L (0.7-2.0) 10/16/23 12:40
Total Bilirubin 0.8 mg/dl (0.2-1.3) 10/16/23 03:28
AST 89 U/L (14-36) H 10/16/23 03:28
ALT 95 U/L (0-35) H 10/16/23 03:28
Alkaline Phosphatase 88 U/L (38-126) 10/16/23 03:28
Most recent labs reviewed.
Micro Results:
10/14/23 22:11 Urine Culture - Final
Urine Escherichia coli
10/14/23 21:33 Blood Culture - Preliminary
Blood/Venous Escherichia coli
Gram Stain - Final
10/15/23 16:52 C. difficile GDH Antigen & Toxins - Final
Feces/Stool Negative for toxigenic C.difficile
Blood Culture Preliminary 10/17/23-950
Positive for Escherichia coli by Nanosphere Verigene
Nucleic Acid Methodology.
Organism 1 Escherichia coli
1. Escherichia coli
M.I.C. RX
--------- ---
Amoxicillin/Potas. Clavulanate <=8/4 S
Ampicillin <=8 S
Ampicillin/Sulbactam <=4/2 S
Aztreonam <=4 S
Cefazolin <=2 S
Ertapenem <=0.5 S
Ciprofloxacin <=0.25 S
Gentamicin <=2 S
Meropenem <=1 S
Piperacillin/Tazobactam <=8 S
Tetracycline <=4 S
Tobramycin <=2 S
Trimethoprim/Sulfamethoxazole <=2/38 S
Imaging:
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 There is marked residual contrast within the urinary tract including the urinary bladder. A small volume of air in the
proximal ureter and urinary bladder of uncertain etiology. Likely at least 1 nonobstructing right renal calculus, but evaluation limited by residual contrast from CT of the prior day. No findings to suggest cholelithiasis or biliary tract
dilatation. Prior gastric surgery noted. Marked beam hardening artifact from metal hardware in the lumbar spine. Please see full dictation for additional detail. Film personally reviewed.
--- NOTE | 2023-10-17 10:35 | W.PN.URO.CBU ---
Today's Communication / Plan
-
Continue hydration and antibiotics
Consider repeat imaging should clinical improvement not continue
Assessment / Plan
-
History of nephrolithiasis: possible passed stone. No evidence of ureteral obstruction presently
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
Riddle-sensitive E. coli UTI/bacteremia
---
Development of urine urgency with incontinence and w/o dysuria raises the possibility patient is in the midst of passing a stone
Diagnosis
-
Date of Service: October 17, 2023
-
Patient Diagnosis:
Sudden onset of right flank to hip 10/14/23 with chills but w/o fever, dysuria, urgency, frequency or gross hematuria
She has E. coli bacteremia/UTI
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
Air noted in bladder and right upper renal unit collecting system (patient was reportedly straight-cathed in the ED yesterday)
History of nephrolithiasis: s/p ureteroscopic laser lithotripsy July 2022 ([facility])
Subjective
-
Feeling better daily
Urine urgency persists
Objective
-
Vital Signs
Temp Pulse Resp BP Pulse Ox
99.2 F 119 22 126/72 89
10/17/23 07:25 10/17/23 07:00 10/17/23 07:00 10/17/23 07:00 10/17/23 02:00
Intake and Output
10/16/23 10/17/23 10/18/23
06:59 06:59 06:59
Intake Total 3140 / 3140 1889
Output Total 475 / 475
Balance 2665 / 2665 1889
Intake:
Oral fluids 840 / 840 640 / 640
IV fluids (Total) 2200 / 2200 1200 / 1200
IV piggybacks 100 / 100 50 / 50
Output:
Urine, Voided 475 / 475
Other:
Number of approximated MODERATE 1
amounts of urine
Number of approximated LARGE 1
amounts of urine
How many times incontinent 1
SMALL amount urine
How many times incontinent 1 1
MODERATE amount urine
How many times incontinent 1 1
SATURATED amount urine
Number of unmeasured liquid
stools
Rectum 2
Laboratory Results
10/17/23 05:38
10/17/23 05:38
Review of Systems
-
Constitutional: Fatigue
Respiratory: No Symptoms
Cardiac: No Symptoms
Abdomen/GI: Abdominal Pain
: Urgency
Neurological: No Symptoms
Physical Exam
-
General - well nourished, no acute distress
Abdomen - soft, non-tender
Counseling
-
Discussed with Hospitalist and patient's
[2023-10-17] MEDS: ANCEF 10 IV ×2 (11:51→19:58)
[2023-10-17 12:34] LABS: Glucose - Point of Care 142 mg/dl (70-99)
[2023-10-17] MEDS: LOPRESSOR 12.5 MG PO ×2 (12:34→19:58)
[2023-10-17] MEDS: TYLENOL 650 MG PO (12:34)
[2023-10-17 17:53] LABS: Glucose - Point of Care 98 mg/dl (70-99)
[2023-10-17] MEDS: HEPARIN 5000 UNITS SC ×2 (18:17→23:36)
--- NOTE | 2023-10-17 21:47 | PTCARENOTE ---
Patient transferred to 3W with all belongings telephone report given to RN.
--- NOTE | 2023-10-17 22:00 | PTCARENOTE ---
Pt transferred from 4W to 3W via stretcher. Pt 1 assist from stretcher to bed, weak on feet w/ continuous tremors. Vitals obtained and stable, AAO3, oriented to room, call schaffer within reach. Pt pleasant and compliant, will continue to monitor.
[2023-10-18 03:09] VITALS: BP 117/69
[2023-10-18] MEDS: ANCEF 10 IV ×3 (05:08→20:09)
[2023-10-18] MEDS: LOPRESSOR 12.5 MG PO (07:30)
[2023-10-18] MEDS: PROTONIX 40 MG PO (07:32)
[2023-10-18] MEDS: HEPARIN 5000 UNITS SC ×3 (07:32→23:39)
[2023-10-18] MEDS: CRESTOR 20 MG PO (07:32)
[2023-10-18] MEDS: VITAMIN B-12 1000 MCG PO (07:33)
[2023-10-18] MEDS: NEURONTIN 800 MG PO ×2 (07:33→20:07)
[2023-10-18 07:40] LABS: Hematocrit 31.1 % (37.0-47.0); Hemoglobin 10.7 g/dL (12.0-16.0); Mean Corp Hgb Conc. 34.4 g/dL (33.0-37.0); Mean Corpuscular Hgb 27.8 pg (27.0-31.0); Mean Corpuscular Volume 80.8 fL (81.0-99.0); Red Blood Cell Count 3.85 10^6/uL (4.20-5.40); Red Cell Dist. Width 14.2 % (11.5-14.5); White Blood Cell Count 10.8 10^3/uL (4.8-10.8)
[2023-10-18 07:45] VITALS: BP 121/69
[2023-10-18 08:11] LABS: Blood Urea Nitrogen 12 mg/dl (7-17); Calcium 7.9 mg/dl (8.4-10.2); Carbon Dioxide 21 mmol/L (22-30); Chloride 112 mmol/L (98-107); Estimated Creatinine Clearance 96 ml/min; Glucose 68 mg/dl (70-99); Potassium 2.8 mmol/L (3.5-5.1); Sodium 138 mmol/L (135-145); eGFR > 60.00
[2023-10-18 08:26] LABS: Mean Platelet Volume 12.7 fL (7.4-10.4); Platelet Count 77 10^3/uL (130-400)
[2023-10-18 08:29] LABS: % Basophils 0.5 % (0-2); % Eosinophils 2.5 % (0-6); % Immature Granulocytes 0.5 % (0-0.5); % Lymphocytes 14.2 % (20.5-51.1); % Monocytes 4.8 % (1.7-9.3); % Neutrophils 77.5 % (42.2-75.2); Absolute Basophils 0.1 10^3/uL (0-0.2); Absolute Eosinophils 0.3 10^3/uL (0-0.7); Absolute Immature Granulocytes 0.1 10^3/uL (0-0.05); Absolute Lymphocytes 1.5 10^3/uL (1.2-3.4); Absolute Monocytes 0.5 10^3/uL (0.1-0.6); Absolute Neutrophils 8.4 10^3/uL (1.4-6.5); Nucleated Red Blood Cells % 0 %
[2023-10-18 08:32] LABS: Glucose - Point of Care 61 mg/dl (70-99)
[2023-10-18 08:49] LABS: Glucose - Point of Care 71 mg/dl (70-99)
[2023-10-18] MEDS: NOVOLOG FLEXPEN-LOW RESISTANCE SC ×2 (09:07→11:20)
[2023-10-18] MEDS: LANTUS SC (09:07)
[2023-10-18] MEDS: KCL 40 MEQ PO (09:59)
[2023-10-18] MEDS: KCL 270 MEQ IV (09:59)
--- NOTE | 2023-10-18 10:22 | W.PN.URO.CBU ---
Today's Communication / Plan
-
no gu interventions
Assessment / Plan
-
History of nephrolithiasis: possible passed stone. No evidence of ureteral obstruction presently
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
Riddle-sensitive E. coli UTI/bacteremia
---
Development of urine urgency with incontinence and w/o dysuria if sxs worsen panda to reimage
Diagnosis
-
Date of Service: October 18, 2023
-
Patient Diagnosis:
Post Op Day:
Patient Diagnosis:
Sudden onset of right flank to hip 10/14/23 with chills but w/o fever, dysuria, urgency, frequency or gross hematuria
She has E. coli bacteremia/UTI
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
Air noted in bladder and right upper renal unit collecting system (patient was reportedly straight-cathed in the ED yesterday)
History of nephrolithiasis: s/p ureteroscopic laser lithotripsy July 2022 ([facility])
Subjective
-
feels muv-pch better no uti xs some rem ining urgecy no colic fever chils
Objective
-
Vital Signs
Temp Pulse Resp BP Pulse Ox
98.6 F 105 16 121/69 98
10/18/23 07:45 10/18/23 07:45 10/18/23 07:45 10/18/23 07:45 10/18/23 07:45
Intake and Output
10/17/23 10/18/23 10/19/23
06:59 06:59 06:59
Intake Total 1889 480 / 480
Balance 1889 / 1889 480 / 480
Intake:
Oral fluids 640 / 640 480 / 480
IV fluids (Total) 1200 / 1200
IV piggybacks 50 / 50
Other:
How many times incontinent 1
SMALL amount urine
How many times incontinent 1
MODERATE amount urine
How many times incontinent 1 2
SATURATED amount urine
Number of unmeasured liquid
stools
Rectum 2
Laboratory Results
10/18/23 06:36
10/18/23 06:36
Review of Systems
-
: Frequency and Urgency
Physical Exam
-
General - well developed, well nourished, no acute distress
Chest - clear bilaterally
Abdomen - soft, non-tender, positive bowel sounds, no CVAT, no incisional pain or distention
Genitalia - normal
Rectal - normal
Skin - warm & dry with no rash
Neuro - AOx3, no motor deficits
Extremities - no clubbing, no cyanosis, no edema
Incision - clean, dry
Dressing - clean, dry, intact
[2023-10-18 11:07] VITALS: BP 125/80
[2023-10-18 11:15] LABS: Glucose - Point of Care 135 mg/dl (70-99)
--- NOTE | 2023-10-18 14:41 | W.PN.UPDATE ---
Update Note
Progress Note Update
Seen and examined by me independently in collaboration with the medical stenographer.
Lab data data reviewed.
Addendum as below :
The right flank pain is improving but still with continued frequency of urine. She says dysuria has resolved.
No nausea vomiting. Improved appetite. Having loose stools-SNF 4. No shortness of breath. No fever.
Hemodynamically stable. Afebrile.
Chest clear.
Right flank tenderness much improved.
Bacteremic UTI and structurally abnormal kidney. Septic shock has resolved and clinical picture is improving but has persistent frequency of urine. Will obtain a CT of the abdomen pelvis without contrast to look for any stones.
hypokalemia secondary to diarrheal stools-replete C. difficile negative. Continue to follow. ID following.
--- NOTE | 2023-10-18 14:43 | W.PN.HOSP.TC ---
Today's Communication/Plan
-
Increase metoprolol to 25mg twice daily
Monitor bowel movements
Replete potassium
Repeat abdomen pelvis CT scan without contrast for ongoing urinary urgency and incontinence
Assessment / Plan
Assessment / Plan
IMPRESSION: 62-year-old female with past medical history of diabetes, SVT, nephrolithiasis presenting to the ED with right flank pain radiating to the right groin, lack of appetite, lightheadedness, chills and fatigue. SIRS positive in ED. Patient
feels much better but still has urinary urgency and incontinence. No dysuria.
PLAN:
Sepsis
Likely due to urinary tract infection
UC -gram-negative bacilli, BC - Escherichia coli bacteremia
U/A�SG 1.005, moderate bacteria, esterase 2+, WBC >100, RBC 21-25
D/C Zosyn and meropenem, transition to cefazolin (day 2)
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 Small volume proximal ureter and urinary bladder of uncertain etiology (could be secondary to UTI). At least one obstructing right renal calculus, no
cholelithiasis or biliary tract dilatation.
UA specimen was obtained by straight cath instrumentation in the ED likely explaining small-volume air in the urinary tract.
Urology consulted�no role for urgent intervention, repeat CT if urinary symptoms remain
Lactic acid trended down to within normal limits - 1.9 on 10-16-23.
Leukocytosis downtrending, no 10.8.
Urinary incontinence
Likely secondary to renal calculi
Repeat abdomen pelvis CT scan
Diarrhea
- C. diff negative
- Monitor patient
- if symptoms persist, symptomatic management
Hypokalemia
- likely secondary to diarrhea and poor oral intake
- replete Potassium
Hypotension
Hold Lopressor, resume low-dose Lopressor as patient is now normotensive and off of Levophed, sinus tachycardia
Bolus IV fluid, patient did respond to IV fluid therapy, started Levophed- blood pressure stable, off of Levophed now
Has not required Levophed since 2 days ago; MAP and other vitals stable and improving.
Monitor BP
Sinus tachycardia
Increase Lopressor to 25 mg twice daily.
Monitor heart rate
Transaminitis
Likely secondary to shock liver from hypotension
Liver enzymes downtrending
No bilirubin elevation, no evidence of biliary duct dilatation on abdominal pelvic CT
History of SVT
Patient did not use metoprolol for the last year
Resume metoprolol for sinus tachycardia
Hyperlipidemia
Continue statin
Full code
DVT prophylaxis heparin
Anticipated Discharge: 24 - 48 hours
Subjective/Interval History
-
Date of Service: October 18, 2023
Objective Data
-
Labs:
Laboratory Results
10/18/23
06:36
WBC 10.8
Hgb 10.7 L
Hct 31.1 L
Plt Count 77 L
Sodium 138
Potassium 2.8 L
Chloride 112 H
Carbon Dioxide 21 L
BUN 12
Creatinine 0.7
Glucose 68 L
Calcium 7.9 L
Vital Signs:
Vital Signs
Temp Pulse Resp BP Pulse Ox
99.0 F 104 16 125/80 99
10/18/23 11:07 10/18/23 11:07 10/18/23 11:07 10/18/23 11:07 10/18/23 11:07
I&O
10/17/23 10/18/23 10/19/23
06:59 06:59 06:59
Intake Total 1889 480 / 480
Balance 1889 480 / 480
Review of Systems
-
History Source: Patient
Constitutional: Reports Weakness
EENT: Reports No Symptoms Reported
Respiratory: Reports No Symptoms
Cardiac: Reports No Symptoms
Abdomen/GI: Reports Diarrhea (4 episodes of loose stool yesterday)
Breast: Reports No Symptoms
Genitourinary: Reports Frequency and Incontinence
Musculoskeletal: Reports No Symptoms
Skin: Reports No Symptoms
Neuro: Reports Lightheadedness
Endocrine: Reports No Symptoms
Hematologic / Lymphatic: Reports No Symptoms
Allergy / Immunology: Reports No Symptoms
Physical Exam
-
General: Well Developed and Well Nourished
Respiratory: Clear to Auscultation
Cardiac: Regular Rhythm
GI: Soft, Nontender, Nondistended and Normal Bowel Sounds
Genito-urinary: Costovertebral Angle Tend (Improved)
Musculoskeletal: No Edema
Neuro: Awake, Alert and Oriented
Hematologic / Lymphatic: No Lymphadenopathy
Psych: Calm
--- NOTE | 2023-10-18 14:48 | VNURNOTE ---
Home Health Liaison met with patient at bedside discuss [facility] nurse/therapy, visits, schedule and homebound status. Patient is agreeable and understands that visits at home will be 1-3 x per week to assess and teach medical management. [facility] contact
information provided. Patient is aware that [facility] will contact them for start of care within a few days after discharge from .
[facility] referral completed in [facility].
[2023-10-18 15:21] VITALS: BP 125/72; PULSE 106; O2SAT 98
[2023-10-18] MEDS: TYLENOL 650 MG PO (15:58)
--- NOTE | 2023-10-18 16:03 | CM ---
Spoke with pt in room .
Reviewed PT Ot evals. Pt requested [facility] at home .
Alyson S [facility] rep aware to set up VN .
Potassium low.
Continues on IV abx.
PLAN Home with [facility]
[2023-10-18 16:54] LABS: Glucose - Point of Care 188 mg/dl (70-99)
--- NOTE | 2023-10-18 17:00 | W.PN.ID1 ---
Date of Service
Date of Service: October 18, 2023
Today's Communication
reporting colicky R cva tenderness which is moving towards the groin - seems possible that she may be passing a stone
unable to strain urine - she is incontinent of both urine and stool
E. coli in blood cultures and urine culture - pansensitive
c/w cefazolin.
Assessment / Plan
Leukocytosis
Complicated urinary tract infection / pyelonephritis
E. coli bacteremia
Lactic acidosis
KATEY
Transaminitis
DM
Dyslipidemia
Hx arrhythmia (SVT)
Recommendations:
reporting colicky R cva tenderness which is moving towards the groin - seems possible that she may be passing a stone. A repeat CT scan is planned
unable to strain urine - she is incontinent of both urine and stool
E. coli in blood cultures and urine culture - pansensitive
c/w cefazolin.
Monitor white count and temperature.
����������������������������������������������������������
Chief Complaint
-: UTI and Bacteremia
Subjective / Review of Systems
afebrile
resolved leukocytosis
having loose stools, she is incontinent of urine and stool
patient confirms she had straight cath in the ER
Vital Signs / Physical Exam
Vital Signs
Vital Signs
Temp Pulse Resp BP Pulse Ox
98.5 F 106 16 125/72 98
10/18/23 15:21 10/18/23 15:21 10/18/23 15:21 10/18/23 15:21 10/18/23 15:21
Physical Exam
Constitutional: No Acute Distress
Cardiovascular: Regular Rate and S1/S2; Negative Murmur or Rub
Pulmonary: Clear and Symmetric; Negative Wheezes or Rales
Gastrointestinal: Soft, Non Tender, Non Distended, Normal Bowel Sounds and Other (mild right flank tenderness)
Skin: Warm and Dry; Negative Rash or Jaundice
Objective Data
Lab Data
Lab Results
10/18/23 06:36
10/18/23 06:36
Estimated Creat Clear 96 ml/min 10/18/23 06:36
Lactic Acid 1.9 mmol/L (0.7-2.0) 10/16/23 12:40
Total Bilirubin 0.8 mg/dl (0.2-1.3) 10/16/23 03:28
AST 89 U/L (14-36) H 10/16/23 03:28
ALT 95 U/L (0-35) H 10/16/23 03:28
Alkaline Phosphatase 88 U/L (38-126) 10/16/23 03:28
Most recent labs reviewed.
Micro Results:
10/14/23 21:33 Blood Culture - Preliminary
Blood/Venous Escherichia coli
Gram Stain - Final
10/14/23 22:11 Urine Culture - Final
Urine Escherichia coli
10/15/23 16:52 C. difficile GDH Antigen & Toxins - Final
Feces/Stool Negative for toxigenic C.difficile
Blood Culture Preliminary 10/17/23-950
Positive for Escherichia coli by Nanosphere Verigene
Nucleic Acid Methodology.
Organism 1 Escherichia coli
1. Escherichia coli
M.I.C. RX
--------- ---
Amoxicillin/Potas. Clavulanate <=8/4 S
Ampicillin <=8 S
Ampicillin/Sulbactam <=4/2 S
Aztreonam <=4 S
Cefazolin <=2 S
Ertapenem <=0.5 S
Ciprofloxacin <=0.25 S
Gentamicin <=2 S
Meropenem <=1 S
Piperacillin/Tazobactam <=8 S
Tetracycline <=4 S
Tobramycin <=2 S
Trimethoprim/Sulfamethoxazole <=2/38 S
Imaging:
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 There is marked residual contrast within the urinary tract including the urinary bladder. A small volume of air in the
proximal ureter and urinary bladder of uncertain etiology. Likely at least 1 nonobstructing right renal calculus, but evaluation limited by residual contrast from CT of the prior day. No findings to suggest cholelithiasis or biliary tract
dilatation. Prior gastric surgery noted. Marked beam hardening artifact from metal hardware in the lumbar spine. Please see full dictation for additional detail. Film personally reviewed.
[2023-10-18] MEDS: NOVOLOG FLEXPEN-LOW RESISTANCE 1 UNITS SC (18:04)
[2023-10-18 19:00] VITALS: BP 129/80
[2023-10-18] MEDS: LOPRESSOR 25 MG PO (20:08)
[2023-10-18 21:32] LABS: Glucose - Point of Care 125 mg/dl (70-99)
[2023-10-18 23:00] VITALS: BP 117/71
--- NOTE | 2023-10-18 23:18 | PTCARENOTE ---
Oral care was not done tonight because patient refused but said they would prefer to brush teeth in the morning.
[2023-10-19 03:00] VITALS: BP 127/78
[2023-10-19 03:04] LABS: Glucose - Point of Care 160 mg/dl (70-99)
[2023-10-19] MEDS: ANCEF 10 IV ×3 (03:46→20:59)
[2023-10-19 06:40] LABS: Hematocrit 30.9 % (37.0-47.0); Hemoglobin 10.4 g/dL (12.0-16.0); Mean Corp Hgb Conc. 33.7 g/dL (33.0-37.0); Mean Corpuscular Hgb 27.4 pg (27.0-31.0); Mean Corpuscular Volume 81.3 fL (81.0-99.0); Mean Platelet Volume 12.1 fL (7.4-10.4); Platelet Count 71 10^3/uL (130-400); Red Cell Dist. Width 14.2 % (11.5-14.5); White Blood Cell Count 7.4 10^3/uL (4.8-10.8)
[2023-10-19 06:42] LABS: Blood Urea Nitrogen 11 mg/dl (7-17); Calcium 7.9 mg/dl (8.4-10.2); Carbon Dioxide 22 mmol/L (22-30); Chloride 111 mmol/L (98-107); Estimated Creatinine Clearance 96 ml/min; Glucose 173 mg/dl (70-99); Potassium 3.5 mmol/L (3.5-5.1); Sodium 135 mmol/L (135-145); eGFR > 60.00
[2023-10-19 07:25] VITALS: BP 126/76
[2023-10-19 08:06] LABS: Glucose - Point of Care 145 mg/dl (70-99)
[2023-10-19 08:08] LABS: % Neutrophils 63.4 % (42.2-75.2)
[2023-10-19 08:09] LABS: % Basophils 0.7 % (0-2); % Eosinophils 3.4 % (0-6); % Immature Granulocytes 1.5 % (0-0.5); % Lymphocytes 22.3 % (20.5-51.1); % Monocytes 8.7 % (1.7-9.3); Absolute Basophils 0.1 10^3/uL (0-0.2); Absolute Eosinophils 0.3 10^3/uL (0-0.7); Absolute Immature Granulocytes 0.1 10^3/uL (0-0.05); Absolute Lymphocytes 1.6 10^3/uL (1.2-3.4); Absolute Monocytes 0.6 10^3/uL (0.1-0.6); Absolute Neutrophils 4.7 10^3/uL (1.4-6.5); Nucleated Red Blood Cells % 0 %
[2023-10-19] MEDS: NOVOLOG FLEXPEN-LOW RESISTANCE SC (08:36)
[2023-10-19] MEDS: LOPRESSOR 25 MG PO ×2 (08:40→20:58)
[2023-10-19] MEDS: PROTONIX 40 MG PO (08:40)
[2023-10-19] MEDS: CRESTOR 20 MG PO (08:40)
[2023-10-19] MEDS: VITAMIN B-12 1000 MCG PO (08:40)
[2023-10-19] MEDS: NEURONTIN 800 MG PO ×2 (08:41→20:58)
[2023-10-19] MEDS: HEPARIN 5000 UNITS SC ×3 (08:41→23:17)
[2023-10-19] MEDS: LANTUS 0.1 UNITS SC (08:42)
--- NOTE | 2023-10-19 10:38 | W.PN.HOSP.TC ---
Today's Communication/Plan
-
Continue antibiotics (cefazolin)
Urology - No need for intervention, oupatient follow-up with urology
Assessment / Plan
Assessment / Plan
IMPRESSION: 62-year-old female with past medical history of diabetes, SVT, nephrolithiasis presenting to the ED with right flank pain radiating to the right groin, lack of appetite, lightheadedness, chills and fatigue. SIRS positive in ED. Patient
feels much better but still has urinary urgency, incontinence and pain with voiding.
PLAN:
Septic shock
Likely due to urinary tract infection
UC -gram-negative bacilli, BC - Escherichia coli bacteremia
U/A�SG 1.005, moderate bacteria, esterase 2+, WBC >100, RBC 21-25
D/C Zosyn and meropenem, transition to cefazolin (day 2)
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 Small volume proximal ureter and urinary bladder of uncertain etiology (could be secondary to UTI). At least one obstructing right renal calculus, no
cholelithiasis or biliary tract dilatation.
UA specimen was obtained by straight cath instrumentation in the ED likely explaining small-volume air in the urinary tract.
Urology consulted�no role for urgent intervention
Lactic acid trended down to within normal limits - 1.9 on 10-16-23.
Leukocytosis resolved, white count 7.4 today.
Urinary incontinence
Likely secondary to renal calculi
Repeat abdomen pelvis CT scan shows 8 calculi in right collecting system (largest measuring 1.4 x 0.6), suspicion for pyelonephritis, air in bladder.
Diarrhea
- C. diff negative
- Monitor patient
- if symptoms persist, symptomatic management
Hypokalemia
- likely secondary to diarrhea and poor oral intake
- replete Potassium. potassium 3.5 today
Hypotension
Hold Lopressor, resume low-dose Lopressor as patient is now normotensive and off of Levophed, sinus tachycardia
Bolus IV fluid, patient did respond to IV fluid therapy, started Levophed- blood pressure stable, off of Levophed now
Has not required Levophed since 2 days ago; MAP and other vitals stable and improving.
Monitor BP - now resolved
Sinus tachycardia
Continue Lopressor to 25 mg twice daily.
Monitor heart rate
Transaminitis
Likely secondary to shock liver from hypotension
Liver enzymes downtrending
No bilirubin elevation, no evidence of biliary duct dilatation on abdominal pelvic CT
History of SVT
Patient did not use metoprolol for the last year
Continue metoprolol for sinus tachycardia
Hyperlipidemia
Continue statin
Full code
DVT prophylaxis heparin
Anticipated Discharge: 24 - 48 hours
Subjective/Interval History
-
Date of Service: October 19, 2023
Objective Data
-
Labs:
Laboratory Results
10/19/23
06:15
WBC 7.4
Hgb 10.4 L
Hct 30.9 L
Plt Count 71 L
Sodium 135
Potassium 3.5
Chloride 111 H
Carbon Dioxide 22
BUN 11
Creatinine 0.7
Glucose 173 H
Calcium 7.9 L
Vital Signs:
Vital Signs
Temp Pulse Resp BP Pulse Ox
98 F 106 16 126/76 99
10/19/23 07:25 10/19/23 07:25 10/19/23 07:25 10/19/23 07:25 10/19/23 07:25
I&O
10/18/23 10/19/23 10/20/23
06:59 06:59 06:59
Intake Total 480 / 480 370 / 370 960 / 960
Balance 480 / 480 370 / 370 960 / 960
Review of Systems
-
History Source: Patient
Constitutional: Reports Weakness
EENT: Reports No Symptoms Reported
Respiratory: Reports No Symptoms
Cardiac: Reports No Symptoms
Abdomen/GI: Reports Diarrhea (1 episode of loose stool yesterday)
Breast: Reports No Symptoms
Genitourinary: Reports Frequency, Incontinence and Other (Pain with urination)
Musculoskeletal: Reports No Symptoms
Skin: Reports No Symptoms
Neuro: Reports Lightheadedness
Endocrine: Reports No Symptoms
Hematologic / Lymphatic: Reports No Symptoms
Allergy / Immunology: Reports No Symptoms
Physical Exam
-
General: Well Developed and Well Nourished
Respiratory: Clear to Auscultation
Cardiac: Regular Rhythm
GI: Soft, Nontender, Nondistended and Normal Bowel Sounds
Genito-urinary: Costovertebral Angle Tend (Improved)
Musculoskeletal: No Edema
Neuro: Awake, Alert and Oriented
Hematologic / Lymphatic: No Lymphadenopathy
Psych: Calm
--- NOTE | 2023-10-19 10:45 | W.PN.ID1 ---
Date of Service
Date of Service: October 19, 2023
Today's Communication
Continue cefazolin.
Assessment / Plan
Leukocytosis - resolved
Complicated urinary tract infection / pyelonephritis
E. coli bacteremia
Lactic acidosis
KATEY
Transaminitis
DM
Dyslipidemia
Hx arrhythmia (SVT)
Recommendations:
reporting colicky R cva tenderness which is moving towards the groin - seems possible that she may be passing a stone.
Repeat CT with multiple renal calculi in renal collecting system wo hydro, + pyelo. Stable air in bladder.
unable to strain urine - she is incontinent of both urine and stool
E. coli in blood cultures and urine culture - pansensitive
c/w cefazolin (d5)
����������������������������������������������������������
Chief Complaint
-: UTI and Bacteremia
Subjective / Review of Systems
Incontinent of urine.
right flank pain better.
Vital Signs / Physical Exam
Vital Signs
Vital Signs
Temp Pulse Resp BP Pulse Ox
98 F 106 16 126/76 99
10/19/23 07:25 10/19/23 07:25 10/19/23 07:25 10/19/23 07:25 10/19/23 07:25
Physical Exam
Constitutional: No Acute Distress
Cardiovascular: Regular Rate and S1/S2; Negative Murmur or Rub
Pulmonary: Clear and Symmetric; Negative Wheezes or Rales
Gastrointestinal: Soft, Non Tender, Non Distended, Normal Bowel Sounds and Other (mild right flank tenderness)
Genito-Urinary: Negative CVA Tenderness
Neurological: AO x 3
Objective Data
Lab Data
Lab Results
10/19/23 06:15
10/19/23 06:15
Estimated Creat Clear 96 ml/min 10/19/23 06:15
Lactic Acid 1.9 mmol/L (0.7-2.0) 10/16/23 12:40
Total Bilirubin 0.8 mg/dl (0.2-1.3) 10/16/23 03:28
AST 89 U/L (14-36) H 10/16/23 03:28
ALT 95 U/L (0-35) H 10/16/23 03:28
Alkaline Phosphatase 88 U/L (38-126) 10/16/23 03:28
Most recent labs reviewed.
Micro Results:
10/14/23 21:33 Blood Culture - Preliminary
Blood/Venous Escherichia coli
Gram Stain - Final
10/14/23 22:11 Urine Culture - Final
Urine Escherichia coli
10/15/23 16:52 C. difficile GDH Antigen & Toxins - Final
Feces/Stool Negative for toxigenic C.difficile
Blood Culture Preliminary 10/17/23-950
Positive for Escherichia coli by Nanosphere Verigene
Nucleic Acid Methodology.
Organism 1 Escherichia coli
1. Escherichia coli
M.I.C. RX
--------- ---
Amoxicillin/Potas. Clavulanate <=8/4 S
Ampicillin <=8 S
Ampicillin/Sulbactam <=4/2 S
Aztreonam <=4 S
Cefazolin <=2 S
Ertapenem <=0.5 S
Ciprofloxacin <=0.25 S
Gentamicin <=2 S
Meropenem <=1 S
Piperacillin/Tazobactam <=8 S
Tetracycline <=4 S
Tobramycin <=2 S
Trimethoprim/Sulfamethoxazole <=2/38 S
Imaging:
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 There is marked residual contrast within the urinary tract including the urinary bladder. A small volume of air in the
proximal ureter and urinary bladder of uncertain etiology. Likely at least 1 nonobstructing right renal calculus, but evaluation limited by residual contrast from CT of the prior day. No findings to suggest cholelithiasis or biliary tract
dilatation. Prior gastric surgery noted. Marked beam hardening artifact from metal hardware in the lumbar spine. Please see full dictation for additional detail. Film personally reviewed.
[2023-10-19 11:27] VITALS: BP 125/73
[2023-10-19 11:52] VITALS: BP 124/79; PULSE 99; O2SAT 99
--- NOTE | 2023-10-19 12:19 | W.PN.UPDATE ---
Update Note
Progress Note Update
seen and examined by me independently in collaboration with the lpn medical assistant.
Lab data and imaging data reviewed.
Addendum as below :
Improvement in her fatigue and weakness. Performing better with the PT. Eating bit more but still appetite not to baseline.
No nausea or vomiting.
No shortness of breath. No fever chills.
Ongoing frequency of urine but no dysuria.
Chest clear.
Abdomen benign.
CT of the abdomen pelvis noted.
Bacteremic UTI with septic shock-resolved sepsis and improving clinical picture. Normalized white count. Continue with antibiotics per ID.
Right cross fused ectopic kidney.There are numerous foci of increased attenuation within the right superior moiety renal collecting system, likely representing multiple (approximately 8) calculi. The largest stone is oblong in configuration
measuring approximately 1.4 x 0.6 cm. Other calculi measuring approximately 5 mm. There appears to be mild soft tissue stranding associated with the superior moiety, suspicious for pyelonephritis.
No calculi in the inferior moiety collecting system. No interventions planned. Continue with antibiotic treatments. Urology following.
Sinus tachycardia-improved. Continue with beta-pennie for now.
Abnormal LFTs suspected secondary to sepsis and hypotension improving.
Thrombocytopenia suspect possible sepsis related continue to follow closely.
Increased weight gain-small pleural effusion on CT of the abdomen pelvis noted-suspect related to fluid resuscitation for septic shock. Weight gain noted but asymptomatic without shortness of breath. Chest is clear. Off of fluids.. Follow
weights daily and if symptomatic will start on diuretics .
CW PT/OT
If no plans for interventions will start DC plan.
[2023-10-19 12:45] LABS: Glucose - Point of Care 168 mg/dl (70-99)
--- NOTE | 2023-10-19 12:46 | W.PN.URO.CBU ---
Today's Communication / Plan
-
Antibiotics per ID
No surgical intervention
Assessment / Plan
-
History of nephrolithiasis: possible passed stone. No evidence of ureteral obstruction presently and on repeat CT scan
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
Riddle-sensitive E. coli UTI/bacteremia
---
- No intervention indicated - no obstructive uropathy suspected and resolved mild hydronephrosis on repeat CT
- Antibiotic recommendations at discharge per ID
- Outpatient follow up with her urologist Dr. Rosales
Diagnosis
-
Date of Service: October 19, 2023
-
Patient Diagnosis:
Post Op Day:
Patient Diagnosis:
Right flank to hip 10/14/23 with chills but w/o fever
E. coli bacteremia/UTI
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
Air noted in bladder and right upper renal unit collecting system (patient was reportedly straight-cathed in the ED)
History of nephrolithiasis: s/p ureteroscopic laser lithotripsy July 2022 ([facility])
Subjective
-
Mild R flank pain today
Some incontinence and dysuria
Objective
-
Vital Signs
Temp Pulse Resp BP Pulse Ox
98.3 F 102 16 125/73 100
10/19/23 11:27 10/19/23 11:27 10/19/23 11:27 10/19/23 11:27 10/19/23 11:27
Intake and Output
10/18/23 10/19/23 10/20/23
06:59 06:59 06:59
Intake Total 480 / 480 370 / 370 960 / 960
Balance 480 / 480 370 / 370 960 / 960
Intake:
Oral fluids 480 / 480 370 / 370 960 / 960
Other:
How many times incontinent 2
MODERATE amount urine
How many times incontinent 2 1 1
SATURATED amount urine
Number of unmeasured liquid
stools
Rectum 3 3
Laboratory Results
10/19/23 06:15
10/19/23 06:15
Physical Exam
-
General - well developed, well nourished, no acute distress
Chest - clear resp
Abdomen - soft, non-tender
[2023-10-19] MEDS: NOVOLOG FLEXPEN-LOW RESISTANCE 1 UNITS SC ×2 (13:00→16:35)
[2023-10-19 15:25] VITALS: BP 113/73
[2023-10-19] MEDS: KCL 20 MEQ PO (16:05)
[2023-10-19 16:22] LABS: Glucose - Point of Care 153 mg/dl (70-99)
[2023-10-19 20:56] VITALS: BP 125/75
[2023-10-19] MEDS: TYLENOL 650 MG PO (20:57)
[2023-10-19 21:46] LABS: Glucose - Point of Care 146 mg/dl (70-99)
--- NOTE | 2023-10-19 21:49 | PTCARENOTE ---
Spoke pt about plan to navigate around new bowel and bladder incontinence issues. Pt is worried about how to manage at home. Pt agrees with plan to actively toilet every couple hours while awake and checking periodically in between for accidents to
train toilet habits and build up more stamina. Pt was found to be unknowingly incontinent of stool while taking a trip to the bathroom, pt walked to bathroom and was able to void more. Pt washed completely with minimal assistance, barrier applied
to buttocks and groin, pt preformed mouth care independently, and bed sheets were changed. Pt States she feels better and is optimistic about plan. Pt vital signs taken for HS med pass, will check again at 0000 medpass.
[2023-10-19] MEDS: FLORASTOR 250 MG PO (23:17)
[2023-10-20] MEDS: ANCEF 10 IV ×3 (05:50→20:51)
[2023-10-20 06:56] VITALS: BMI 29.3
[2023-10-20 07:25] VITALS: BP 121/70
[2023-10-20 07:29] LABS: Hematocrit 30.1 % (37.0-47.0); Hemoglobin 9.9 g/dL (12.0-16.0); Mean Corp Hgb Conc. 32.9 g/dL (33.0-37.0); Mean Corpuscular Hgb 26.6 pg (27.0-31.0); Mean Corpuscular Volume 80.9 fL (81.0-99.0); Mean Platelet Volume 12.3 fL (7.4-10.4); Platelet Count 91 10^3/uL (130-400); Red Blood Cell Count 3.72 10^6/uL (4.20-5.40); Red Cell Dist. Width 14.5 % (11.5-14.5); White Blood Cell Count 9.8 10^3/uL (4.8-10.8)
[2023-10-20 07:36] LABS: Glucose - Point of Care 145 mg/dl (70-99)
[2023-10-20] MEDS: NOVOLOG FLEXPEN-LOW RESISTANCE SC ×2 (07:50→11:41)
[2023-10-20] MEDS: FLORASTOR 250 MG PO ×2 (07:55→20:51)
[2023-10-20] MEDS: VITAMIN B-12 1000 MCG PO (07:55)
[2023-10-20] MEDS: LOPRESSOR 25 MG PO ×2 (07:55→20:51)
[2023-10-20] MEDS: HEPARIN 5000 UNITS SC ×3 (07:55→23:08)
[2023-10-20] MEDS: CRESTOR 20 MG PO (07:55)
[2023-10-20] MEDS: PROTONIX 40 MG PO (07:55)
[2023-10-20 07:58] LABS: Blood Urea Nitrogen 12 mg/dl (7-17); Carbon Dioxide 23 mmol/L (22-30); Chloride 109 mmol/L (98-107); Estimated Creatinine Clearance 112 ml/min; Glucose 130 mg/dl (70-99); Potassium 3.3 mmol/L (3.5-5.1); Sodium 136 mmol/L (135-145); eGFR > 60.00
[2023-10-20] MEDS: LANTUS 0.1 UNITS SC (07:58)
[2023-10-20] MEDS: NEURONTIN 800 MG PO ×2 (08:10→20:51)
[2023-10-20 08:44] LABS: % Basophils 0.6 % (0-2); % Eosinophils 3.8 % (0-6); % Immature Granulocytes 4.1 % (0-0.5); % Lymphocytes 28.3 % (20.5-51.1); % Monocytes 11.1 % (1.7-9.3); % Neutrophils 52.1 % (42.2-75.2); Absolute Basophils 0.1 10^3/uL (0-0.2); Absolute Eosinophils 0.4 10^3/uL (0-0.7); Absolute Immature Granulocytes 0.4 10^3/uL (0-0.05); Absolute Lymphocytes 2.8 10^3/uL (1.2-3.4); Absolute Monocytes 1.1 10^3/uL (0.1-0.6); Absolute Neutrophils 5.1 10^3/uL (1.4-6.5); Nucleated Red Blood Cells % 0 %
--- NOTE | 2023-10-20 09:13 | W.PN.UPDATE ---
Update Note
Progress Note Update
Seen and examined by me independently in collaboration with the adjunct faculty for medical terminology Kirsty.
Lab data g data reviewed.
Addendum as below :
Eating better.
Had 2 loose stools yesterday.
Patient still with frequency of urine ,thinks she has some dysuria to today. She at times cannot control her urine due to incontinence.
Chest clear
Abdomen-no tenderness anteriorly
Resolved sepsis parameters including shock.
Bacteremic UTI with E. coli-on appropriate antibiotic regimen. Normalized white count.
Air in the bladder-unclear of echogenic or secondary bacterial infection
Crossed fused renal [id number] repeat CT without contrast shows There are numerous foci of increased attenuation within the right superior moiety renal collecting system, likely representing multiple (approximately 8) calculi. The largest
stone is oblong in configuration measuring approximately 1.4 x 0.6 cm. Other calculi measuring approximately 5 mm. There appears to be mild soft tissue stranding associated with the superior moiety, suspicious for pyelonephritis.
Urology following-no indication for interventions
Follow urinary symptoms and no further interventions planned will start discharge planning tomorrow.
--- NOTE | 2023-10-20 10:56 | W.PN.HOSP.TC ---
Today's Communication/Plan
-
Continue antibiotic
Replete potassium
Plan for discharge tomorrow
Per urology, no role for interventions
Assessment / Plan
Assessment / Plan
IMPRESSION: 62-year-old female with past medical history of diabetes, SVT, nephrolithiasis presenting to the ED with right flank pain radiating to the right groin, lack of appetite, lightheadedness, chills and fatigue. SIRS positive in ED. Patient
feels much better but still has urinary urgency, incontinence and pain with voiding. Had 2 loose stools yesterday.
PLAN:
Septic shock
Secondary to complicated urinary tract infection
UC -E. coli, BC - Escherichia coli bacteremia
U/A�SG 1.005, moderate bacteria, esterase 2+, WBC >100, RBC 21-25
D/C Zosyn and meropenem, transition to cefazolin (day 2)
Repeat abdomen/pelvis CT: Multiple calculi in the right collecting system (largest measuring 1.4 x 0.6), air in bladder (likely iatrogenic).
Urology consulted�no role for urgent intervention
Lactic acid trended down to within normal limits - 1.9 on 10-16-23.
Leukocytosis now resolved.
Urinary incontinence
-Per urology, likely secondary to irritation from UTI
-Repeat abdomen pelvis CT scan shows 8 calculi in right collecting system (largest measuring 1.4 x 0.6), suspicion for pyelonephritis, air in bladder.
Diarrhea
- C. diff negative
- Monitor patient
- Probiotics
Hypokalemia
- likely secondary to diarrhea and poor oral intake
- replete Potassium. potassium 3.3 today
Hypotension
Hold Lopressor, resume low-dose Lopressor as patient is now normotensive and off of Levophed, sinus tachycardia
Bolus IV fluid, patient did respond to IV fluid therapy, started Levophed- blood pressure stable, off of Levophed now
Has not required Levophed since 2 days ago; MAP and other vitals stable and improving.
Monitor BP - now resolved
Sinus tachycardia
Continue Lopressor to 25 mg twice daily.
Monitor heart rate
Now resolved
Transaminitis
Likely secondary to shock liver from hypotension
Liver enzymes downtrending
No bilirubin elevation, no evidence of biliary duct dilatation on abdominal pelvic CT
History of SVT
Patient did not use metoprolol for the last year
Continue metoprolol for sinus tachycardia
Hyperlipidemia
Continue statin
Full code
DVT prophylaxis heparin
Anticipated Discharge: Within 24 hours
Subjective/Interval History
-
Date of Service: October 20, 2023
Objective Data
-
Labs:
Laboratory Results
10/20/23
05:40
WBC 9.8
Hgb 9.9 L
Hct 30.1 L
Plt Count 91 L D
Sodium 136
Potassium 3.3 L
Chloride 109 H
Carbon Dioxide 23
BUN 12
Creatinine 0.6
Glucose 130 H
Calcium 8.0 L
Vital Signs:
Vital Signs
Temp Pulse Resp BP Pulse Ox
98.7 F 101 17 121/70 99
10/20/23 07:25 10/20/23 07:25 10/20/23 07:25 10/20/23 07:25 10/20/23 07:25
I&O
10/19/23 10/20/23 10/21/23
06:59 06:59 06:59
Intake Total 370 / 370 1919
Balance 370 / 370 1919
Review of Systems
-
History Source: Patient
Constitutional: Reports Weakness
EENT: Reports No Symptoms Reported
Respiratory: Reports No Symptoms
Cardiac: Reports No Symptoms
Abdomen/GI: Reports Diarrhea (1 episode of loose stool yesterday)
Breast: Reports No Symptoms
Genitourinary: Reports Frequency, Incontinence and Other (Pain with urination)
Musculoskeletal: Reports No Symptoms
Skin: Reports No Symptoms
Neuro: Reports Lightheadedness
Endocrine: Reports No Symptoms
Hematologic / Lymphatic: Reports No Symptoms
Allergy / Immunology: Reports No Symptoms
Physical Exam
-
General: Well Developed and Well Nourished
Respiratory: Clear to Auscultation
Cardiac: Regular Rhythm
GI: Soft, Nontender, Nondistended and Normal Bowel Sounds
Genito-urinary: Costovertebral Angle Tend (Improved)
Musculoskeletal: No Edema
Neuro: Awake, Alert and Oriented
Hematologic / Lymphatic: No Lymphadenopathy
Psych: Calm
[2023-10-20] MEDS: KCL 40 MEQ PO (11:20)
--- NOTE | 2023-10-20 11:22 | W.PN.ID1 ---
Date of Service
Date of Service: October 20, 2023
Today's Communication
At time of discharge, transition to cefuroxime 500mg po bid through 10/28/23.
Assessment / Plan
Leukocytosis - resolved
Complicated urinary tract infection / pyelonephritis
E. coli bacteremia
Lactic acidosis
KATEY
Transaminitis
DM
Dyslipidemia
Hx arrhythmia (SVT)
Recommendations:
Improving colicky R cva tenderness which is moving towards the groin - seems possible that she may be passing a stone.
Repeat CT with multiple renal calculi in renal collecting system wo hydro, + pyelo. Stable air in bladder.
unable to strain urine - she is incontinent of both urine and stool
E. coli in blood cultures and urine culture - pansensitive
c/w cefazolin (d6).
At time of discharge, transition to cefuroxime 500mg po bid through 10/28/23.
����������������������������������������������������������
Chief Complaint
-: UTI and Bacteremia
Subjective / Review of Systems
Feeling better, decreased colicky flank pain.
Incontinent of urine.
Vital Signs / Physical Exam
Vital Signs
Vital Signs
Temp Pulse Resp BP Pulse Ox
98.7 F 101 17 121/70 99
10/20/23 07:25 10/20/23 07:25 10/20/23 07:25 10/20/23 07:25 10/20/23 07:25
Physical Exam
Constitutional: No Acute Distress and Comfortable
Pulmonary: Clear
Genito-Urinary: Negative CVA Tenderness
Extremities: Negative Edema
Objective Data
Lab Data
Lab Results
10/20/23 05:40
10/20/23 05:40
Estimated Creat Clear 112 ml/min 10/20/23 05:40
Lactic Acid 1.9 mmol/L (0.7-2.0) 10/16/23 12:40
Total Bilirubin 0.8 mg/dl (0.2-1.3) 10/16/23 03:28
AST 89 U/L (14-36) H 10/16/23 03:28
ALT 95 U/L (0-35) H 10/16/23 03:28
Alkaline Phosphatase 88 U/L (38-126) 10/16/23 03:28
Most recent labs reviewed.
Micro Results:
10/14/23 21:33 Blood Culture - Preliminary
Blood/Venous Escherichia coli
Gram Stain - Final
10/14/23 22:11 Urine Culture - Final
Urine Escherichia coli
10/15/23 16:52 C. difficile GDH Antigen & Toxins - Final
Feces/Stool Negative for toxigenic C.difficile
Blood Culture Preliminary 10/17/23-950
Positive for Escherichia coli by Nanosphere Verigene
Nucleic Acid Methodology.
Organism 1 Escherichia coli
1. Escherichia coli
M.I.C. RX
--------- ---
Amoxicillin/Potas. Clavulanate <=8/4 S
Ampicillin <=8 S
Ampicillin/Sulbactam <=4/2 S
Aztreonam <=4 S
Cefazolin <=2 S
Ertapenem <=0.5 S
Ciprofloxacin <=0.25 S
Gentamicin <=2 S
Meropenem <=1 S
Piperacillin/Tazobactam <=8 S
Tetracycline <=4 S
Tobramycin <=2 S
Trimethoprim/Sulfamethoxazole <=2/38 S
Imaging:
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 There is marked residual contrast within the urinary tract including the urinary bladder. A small volume of air in the
proximal ureter and urinary bladder of uncertain etiology. Likely at least 1 nonobstructing right renal calculus, but evaluation limited by residual contrast from CT of the prior day. No findings to suggest cholelithiasis or biliary tract
dilatation. Prior gastric surgery noted. Marked beam hardening artifact from metal hardware in the lumbar spine. Please see full dictation for additional detail. Film personally reviewed.
[2023-10-20 11:37] LABS: Glucose - Point of Care 146 mg/dl (70-99)
--- NOTE | 2023-10-20 11:55 | W.PN.URO.CBU ---
Today's Communication / Plan
-
- No intervention indicated - no obstructive uropathy suspected and resolved mild hydronephrosis on repeat CT
- Antibiotic recommendations at discharge per ID
- Urinary urgency/incontinence is likely due to irritation from UTI
- Outpatient follow up with her urologist Dr. Rosales
Assessment / Plan
-
History of nephrolithiasis: possible passed stone. No evidence of ureteral obstruction presently and on repeat CT scan
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
Riddle-sensitive E. coli UTI/bacteremia
---
- No intervention indicated - no obstructive uropathy suspected and resolved mild hydronephrosis on repeat CT
- Antibiotic recommendations at discharge per ID
- Urinary urgency/incontinence is likely due to irritation from UTI
- Outpatient follow up with her urologist Dr. Rosales
Diagnosis
-
Date of Service: October 20, 2023
-
Patient Diagnosis:
Right flank to hip 10/14/23 with chills but w/o fever
E. coli bacteremia/UTI
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
Air noted in bladder and right upper renal unit collecting system (patient was reportedly straight-cathed in the ED)
History of nephrolithiasis: s/p ureteroscopic laser lithotripsy July 2022 ([facility])
Subjective
-
Urinary incontinence
Otherwise feeling well
Objective
-
Vital Signs
Temp Pulse Resp BP Pulse Ox
98.7 F 101 17 121/70 99
10/20/23 07:25 10/20/23 07:25 10/20/23 07:25 10/20/23 07:25 10/20/23 07:25
Intake and Output
10/19/23 10/20/23 10/21/23
06:59 06:59 06:59
Intake Total 370 / 370 1919
Balance 370 / 370 1919
Intake:
Oral fluids 370 / 370 1919
Other:
Number of approximated MODERATE 3
amounts of urine
How many times incontinent 1
MODERATE amount urine
How many times incontinent 1 1
SATURATED amount urine
Number of unmeasured liquid
stools
Rectum 3 3
Laboratory Results
10/20/23 05:40
10/20/23 05:40
Physical Exam
-
General - well developed, well nourished, no acute distress
Chest - clear bilaterally
Abdomen - soft, non-tender
[2023-10-20 14:59] VITALS: BP 124/74
[2023-10-20 16:36] LABS: Glucose - Point of Care 160 mg/dl (70-99)
[2023-10-20] MEDS: NOVOLOG FLEXPEN-LOW RESISTANCE 300 UNITS SC (17:10)
[2023-10-20 21:40] LABS: Glucose - Point of Care 158 mg/dl (70-99)
[2023-10-20 22:56] VITALS: BP 113/62
[2023-10-20] MEDS: TYLENOL 650 MG PO (23:14)
[2023-10-21] MEDS: ANCEF 10 IV (03:29)
[2023-10-21 06:56] LABS: Hematocrit 28.2 % (37.0-47.0); Hemoglobin 9.6 g/dL (12.0-16.0); Mean Corpuscular Hgb 27.8 pg (27.0-31.0); Mean Corpuscular Volume 81.7 fL (81.0-99.0); Mean Platelet Volume 12.2 fL (7.4-10.4); Platelet Count 107 10^3/uL (130-400); Red Blood Cell Count 3.45 10^6/uL (4.20-5.40); Red Cell Dist. Width 14.2 % (11.5-14.5); White Blood Cell Count 9.4 10^3/uL (4.8-10.8)
[2023-10-21 07:35] LABS: Blood Urea Nitrogen 9 mg/dl (7-17); Calcium 7.9 mg/dl (8.4-10.2); Carbon Dioxide 26 mmol/L (22-30); Chloride 108 mmol/L (98-107); Estimated Creatinine Clearance 96 ml/min; Glucose 103 mg/dl (70-99); Potassium 3.4 mmol/L (3.5-5.1); Sodium 136 mmol/L (135-145); eGFR > 60.00
[2023-10-21 07:58] VITALS: BP 112/68
[2023-10-21 08:01] LABS: % Basophils 0.5 % (0-2); % Eosinophils 2.9 % (0-6); % Immature Granulocytes 6.6 % (0-0.5); % Lymphocytes 31.3 % (20.5-51.1); % Monocytes 8.6 % (1.7-9.3); % Neutrophils 50.1 % (42.2-75.2); Absolute Basophils 0.1 10^3/uL (0-0.2); Absolute Eosinophils 0.3 10^3/uL (0-0.7); Absolute Immature Granulocytes 0.6 10^3/uL (0-0.05); Absolute Monocytes 0.8 10^3/uL (0.1-0.6); Absolute Neutrophils 4.7 10^3/uL (1.4-6.5); Nucleated Red Blood Cells % 0 %
[2023-10-21 08:09] LABS: Glucose - Point of Care 105 mg/dl (70-99)
[2023-10-21] MEDS: NEURONTIN 800 MG PO (08:24)
[2023-10-21] MEDS: HEPARIN 5000 UNITS SC ×2 (08:24→16:59)
[2023-10-21] MEDS: FLORASTOR 250 MG PO (08:24)
[2023-10-21] MEDS: VITAMIN B-12 1000 MCG PO (08:24)
[2023-10-21] MEDS: CRESTOR 20 MG PO (08:24)
[2023-10-21] MEDS: PROTONIX 40 MG PO (08:24)
[2023-10-21] MEDS: LOPRESSOR 25 MG PO (08:24)
[2023-10-21] MEDS: NOVOLOG FLEXPEN-LOW RESISTANCE SC ×2 (08:25→18:16)
[2023-10-21 09:25] LABS: ALT (SGPT) 16 U/L (0-35); AST (SGOT) 32 U/L (14-36); Albumin 2.4 g/dl (3.5-5.0); Alkaline Phosphatase 120 U/L (38-126); Direct Bilirubin 0.1 mg/dl (0.0-0.4); Iron 47 ug/dl (37-170); Total Bilirubin 0.2 mg/dl (0.2-1.3); Total Protein 5.4 g/dl (6.3-8.2)
[2023-10-21] MEDS: LANTUS 0.1 UNITS SC (09:31)
[2023-10-21 09:34] LABS: Percent Saturation 27 % (20-50); Total Iron Binding Capacity 169 ug/dl (265-497)
--- NOTE | 2023-10-21 10:34 | CM ---
PT OT evals. Pt requested [facility] at home .
Alyson S [facility] rep aware to set up VN .
Continues on IV abx.As per ID note pt to transition po antibiotics at dc.
PLAN Home with [facility]
[2023-10-21 11:17] LABS: Vitamin D, 25-OH*** 14.1 ng/mL (30-80)
[2023-10-21 11:46] LABS: Glucose - Point of Care 174 mg/dl (70-99)
[2023-10-21 11:50] LABS: Vitamin B12 > 1000 pg/ml (239-931)
--- NOTE | 2023-10-21 11:56 | W.PN.ID1 ---
Date of Service
Date of Service: October 21, 2023
Today's Communication
Transition cefazolin to cefuroxime 500mg po bid through 10/28/23.
Assessment / Plan
Leukocytosis - resolved
Complicated urinary tract infection / pyelonephritis
E. coli bacteremia
KATEY - resolved
Transaminitis
DM
Dyslipidemia
Hx arrhythmia (SVT)
Recommendations:
E. coli in blood cultures and urine culture - pansensitive
Transition cefazolin to cefuroxime 500mg po bid through 10/28/23.
����������������������������������������������������������
Chief Complaint
-: UTI and Bacteremia
Subjective / Review of Systems
No new complaints.
Vital Signs / Physical Exam
Vital Signs
Vital Signs
Temp Pulse Resp BP Pulse Ox
98.4 F 99 17 112/68 97
10/21/23 07:58 10/21/23 07:58 10/21/23 07:58 10/21/23 07:58 10/21/23 07:58
Physical Exam
Constitutional: No Acute Distress
Gastrointestinal: Soft, Non Tender and Non Distended
Genito-Urinary: Negative CVA Tenderness
Objective Data
Lab Data
Estimated Creat Clear 96 ml/min 10/21/23 05:12
Lactic Acid 1.9 mmol/L (0.7-2.0) 10/16/23 12:40
Total Bilirubin 0.2 mg/dl (0.2-1.3) 10/21/23 05:12
AST 32 U/L (14-36) 10/21/23 05:12
ALT 16 U/L (0-35) 10/21/23 05:12
Alkaline Phosphatase 120 U/L (38-126) 10/21/23 05:12
Most recent labs reviewed.
Micro Results:
10/14/23 21:33 Blood Culture - Final
Blood/Venous Escherichia coli
Gram Stain - Final
10/14/23 22:11 Urine Culture - Final
Urine Escherichia coli
10/15/23 16:52 C. difficile GDH Antigen & Toxins - Final
Feces/Stool Negative for toxigenic C.difficile
Blood Culture Preliminary 10/17/23-51
Positive for Escherichia coli by Nanosphere Verigene
Nucleic Acid Methodology.
Organism 1 Escherichia coli
1. Escherichia coli
M.I.C. RX
--------- ---
Amoxicillin/Potas. Clavulanate <=8/4 S
Ampicillin <=8 S
Ampicillin/Sulbactam <=4/2 S
Aztreonam <=4 S
Cefazolin <=2 S
Ertapenem <=0.5 S
Ciprofloxacin <=0.25 S
Gentamicin <=2 S
Meropenem <=1 S
Piperacillin/Tazobactam <=8 S
Tetracycline <=4 S
Tobramycin <=2 S
Trimethoprim/Sulfamethoxazole <=2/38 S
Imaging:
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 There is marked residual contrast within the urinary tract including the urinary bladder. A small volume of air in the
proximal ureter and urinary bladder of uncertain etiology. Likely at least 1 nonobstructing right renal calculus, but evaluation limited by residual contrast from CT of the prior day. No findings to suggest cholelithiasis or biliary tract
dilatation. Prior gastric surgery noted. Marked beam hardening artifact from metal hardware in the lumbar spine. Please see full dictation for additional detail. Film personally reviewed.
[2023-10-21] MEDS: LASIX 20 MG PO (12:05)
[2023-10-21] MEDS: CEFTIN 500 MG PO (12:31)
[2023-10-21] MEDS: NOVOLOG FLEXPEN-LOW RESISTANCE 1 UNITS SC (12:47)
--- NOTE | 2023-10-21 13:39 | W.DCSUMMARY ---
Discharge Summary
Discharge Data
Date of Admission: 10/14/23
Date of Discharge: 10/21/23
Total time spent discharging patient (in min): 50
-
Pending Results: No
Hospital Course
Primary diagnosis:
Septic shock secondary to complicated urinary tract infection (pyelonephritis)
Hypokalemia
Diarrhea
Urinary incontinence
Anemia
Sinus tachycardia
Transaminitis
Pericardial effusion
Thrombocytopenia
Secondary diagnosis:
Hyperlipidemia
History of SVT
Diabetes mellitus type 2
62-year-old female with past history of nephrolithiasis, diabetes mellitus type II, and hyperlipidemia presented to the ED with right flank pain, fever, confusion. She was SIRS positive in the ED. Culture and urine culture positive for E. coli,
treated with antibiotics (cefazolin). Patient was initially hypotensive with no response to IV fluids. Was started on Levophed, became normotensive and was off of Levophed. Had transaminitis, likely secondary to shock, which resolved. Abdomen
pelvis CT demonstrated crossed fused renal ectopia with small volume air in the urinary bladder (likely iatrogenic - patient was straight cathed in the ED). Anemia and thrombocytopenia (hemoglobin: 10.9, platelet 81) were noted on admission and
remained stable during hospitalization. Iron studies normal, vitamin B12 normal. Hemoglobin and platelet count at discharge are 10.2 and 107. Patient developed diarrhea and urinary incontinence during course of therapy, C. difficile negative.
Urology consulted, repeat CT showed no evidence of urethral obstruction, no intervention indicated. Recommended outpatient follow-up with urologist Dr. Rosales. During course of therapy, patient had sinus tachycardia, metoprolol was started. CT
scan also showed small bilateral pleural effusion and small pericardial effusion (also noted on echo from 2016). Patient advised to follow-up with outpatient cardiology. Vitamin D level was low (14).
Patient is medically stable to be discharged home on cefuroxime 500 mg twice daily (for an additional 7 days), metoprolol 25 mg twice daily, and vitamin D3. Home meds to be continued. Patient will need to follow-up with outpatient cardiology,
gastroenterology and urology. Will need to check CBC and BMP 3 days after discharge for assessment of hypokalemia and thrombocytopenia.
Discharge Plan
-
Patient Disposition: Home with Home Care
Discharge Diagnosis/Procedures: Septic shock secondary to complicated urinary tract infection, bacteremia ( Bacteria in blood), hypokalemia ( Low Potassium), urinary incontinence, diabetes mellitus type 2, hyperlipidemia
Condition: Fair
Diet: Diabetic, Carb Controlled
Additional Diets: Limit fibers while you have diarrhea
Activity: As tolerated
Driving Restrictions: As prior to admission
Bathing Restrictions: None
Blood Work: CBC and BMP in 3 days
Others Tests: Routine echocardiogram as outpatient
Other Services: VN and PT
Specialty Instructions: Weigh Daily- Call MD for wt gain/loss 3 lbs overnight/5 lbs in 1 week
Activity Restrictions/Additional Instructions:
Workup of anemia. Please follow-up with your PCP as well as a GI physician. Call cardiology for appointment if you don't hear from the office.
Referrals:
Walker Rosales MD [Non-Admitting Privileges] - in one week (For urinary incontinency)
Denise Johnson MD [Family Provider] - in three to four days (Please check CBC and BMP)
Bran Jimenez MD [Active] - in two weeks (Small pericardial effusion, patient asymptomatic)
Prescriptions:
New
metoprolol tartrate 25 mg Tablet
25 mg PO BID Qty: 60 0RF
cefuroxime axetil 500 mg Tablet
500 mg PO BID Qty: 14 0RF
cholecalciferol (vitamin D3) [Vitamin D3] 25 mcg (1,000 unit) capsule
25 mcg PO DAILY Qty: 30 3RF
Continued
acetaminophen [Tylenol Extra Strength] 500 MG tablet
500 mg PO DAILYPRN PRN (Reason: mild pain)
cyanocobalamin (vitamin B-12) [Vitamin B-12] 500 MCG tablet
1,000 mcg PO DAILY
clobetasol 0.05 % Cream
1 applic TOPICAL DAILYPRN PRN (Reason: eczema)
oxycodone-acetaminophen 5-325 mg Tablet
1 tab PO Q8HPRN PRN (Reason: severe pain)
Patient Comments:
10/14/23: last filled 09/26/23 for 45 tablets TMT pharmacy
gabapentin 800 mg Tablet
800 mg PO BID
pantoprazole 40 mg Tablet,Delayed Release (Dr/Ec)
40 mg PO DAILY
lidocaine 5 % Adhesive Patch,Medicated
1 patch TOPICAL DAILYPRN PRN (Reason: lower back)
rosuvastatin 20 mg Tablet
20 mg PO DAILY
insulin glargine [Lantus Solostar U-100 Insulin] 100 unit/mL (3 mL) Insulin Pen
0 unit SC DAILY
Patient Comments:
10/14/23: Sliding scale dose based on blood sugar
Mounjaro 7.5 mg/0.5 mL Pen Injector
7.5 mg SC WE
Held
Linzess 145 mcg Capsule
145 mcg PO DAILY
Hold Instructions: Resume on 11/04/23. Do not use if diarrhea symptoms persist.
Discharge Orders:
Discharge Patient (As Directed); Ordered 10/21/23
Ordered By: Kirsty Gunter
Discharge Date and Time
Print Language: AFGHAN
--- NOTE | 2023-10-21 13:49 | W.PN.HOSP.TC ---
Addendum entered and electronically signed by Vitaliy Garcia MD 10/21/23 16:28:
I personally performed a history and physical exam of the patient and discussed management with the resident. I reviewed the resident's note and agree with the documented findings and plan of care HPI/CC except changes in documentation
62-year-old female with right flank pain
CVS: S1-S2 normal
Chest: CTA B/L
Abdomen: Soft, NT / Bowel sounds present
Extremities: No edema
# Septic shock
Shock resolved-off Levophed
Secondary to complicated UTI
Urine culture with E. coli, blood cultures with E. coli bacteremia
Of Zosyn and meropenem now on Ancef
CT of the abdomen pelvis-multiple calculi in the renal collecting system, air in the bladder
Urology recommends no urologic intervention
Lactic acidosis resolved
Urinary incontinence likely secondary to UTI
Switch to cefuroxime 500 twice daily until 10/28/2023
# Diarrhea-C. difficile negative. Likely antibiotic related
# Hypokalemia-replace as needed. Check magnesium level
# Hypertension-Continue Lopressor
# Vitamin D deficiency-replace
# Anemia-adequate iron and B12. OP Work up
# Thrombocytopenia-likely secondary to infection-improving. Repeat labs as outpatient
# Small pericardial effusion seen on CT-patient had the similar appearance in 2015. There was a pericardial cyst noted in 2011. Outpatient cardiology follow-up
# Transaminitis-likely secondary to shock liver from hypotension- Resolved.
# Fluid retention secondary to IV fluid resuscitation-given a dose of Lasix
# History of RWY-jxbbkxlyqt-Jizlaqj of ablation for SVT
# Hyperlipidemia-continue statin
# Diabetes-on Mounjaro. Hemoglobin A1c 7.6. Accu-Chek and sliding scale coverage and Lantus
# History of gastric sleeve surgery
# Neuropathy NOS-on gabapentin possibly from diabetes?
# History of tuberculosis- 2013 and treated
# Constipation-on Linzess
# Hypoalbuminemia
# Right cross fused ectopia.
# Lumbar surgical fusion with hardware .
# DVT prophylaxis-subcutaneous heparin
# Full code
Follow-up care discussed with the patient
Called and updated.
Total discharge coordination time more than 35 minutes
Original Note:
Today's Communication/Plan
-
Continue antibiotics
Replete potassium, check potassium
Will try Lasix 20 mg, monitor weight and hemoglobin
Planning discharge
Outpatient cardiology follow-up for pericardial effusion
Assessment / Plan
Assessment / Plan
IMPRESSION: 62-year-old female with past medical history of diabetes, SVT, nephrolithiasis presenting to the ED with right flank pain radiating to the right groin, lack of appetite, lightheadedness, chills and fatigue. SIRS positive in ED. Patient
feels much better but still has urinary urgency, incontinence and pain with voiding. Had 3 loose stools since yesterday.
PLAN:
Septic shock
Secondary to complicated urinary tract infection
UC -E. coli, BC - Escherichia coli bacteremia
U/A�SG 1.005, moderate bacteria, esterase 2+, WBC >100, RBC 21-25
D/C Zosyn and meropenem, transition to cefazolin (day 2)
Repeat abdomen/pelvis CT: Multiple calculi in the right collecting system (largest measuring 1.4 x 0.6), air in bladder (likely iatrogenic).
Urology consulted�no role for urgent intervention
Lactic acid trended down to within normal limits - 1.9 on 10-16-23.
Leukocytosis now resolved.
Urinary incontinence
-Per urology, likely secondary to irritation from UTI
-Repeat abdomen pelvis CT scan shows 8 calculi in right collecting system (largest measuring 1.4 x 0.6), suspicion for pyelonephritis, air in bladder.
Diarrhea
- C. diff negative
- Monitor patient
- Probiotics
Small bilateral pleural effusion and pericardial effusion
- Lasix 20 mg, check weight
- Patient had pericardial effusion on echo in 2016
- Outpatient cardiology follow-up for pericardial effusion
Hypokalemia
- likely secondary to diarrhea and poor oral intake
- replete Potassium. Potassium 3.4 today
Anemia
- Iron studies normal
- Vitamin B12 not deficient
- Likely dilutional, will check hemoglobin after Lasix today
Hypotension
Hold Lopressor, resume low-dose Lopressor as patient is now normotensive and off of Levophed, sinus tachycardia
Bolus IV fluid, patient did respond to IV fluid therapy, started Levophed- blood pressure stable, off of Levophed now
Has not required Levophed since 2 days ago; MAP and other vitals stable and improving.
Monitor BP - now resolved
Sinus tachycardia
Continue Lopressor to 25 mg twice daily.
Monitor heart rate
Now resolved
Transaminitis
Likely secondary to shock liver from hypotension
Liver enzymes downtrending
No bilirubin elevation, no evidence of biliary duct dilatation on abdominal pelvic CT
History of SVT
Patient did not use metoprolol for the last year
Continue metoprolol for sinus tachycardia
Hyperlipidemia
Continue statin
Full code
DVT prophylaxis heparin
Anticipated Discharge: Today
Subjective/Interval History
-
Date of Service: October 21, 2023
Objective Data
-
Labs:
Laboratory Results
10/21/23 10/21/23
05:12 15:00
WBC 9.4
Hgb 9.6 L Pending
Hct 28.2 L Pending
Plt Count 107 L
Sodium 136
Potassium 3.4 L Pending
Chloride 108 H
Carbon Dioxide 26
BUN 9
Creatinine 0.7
Glucose 103 H
Calcium 7.9 L
Total Bilirubin 0.2
AST 32
ALT 16
Alkaline Phosphatase 120
Vital Signs:
Vital Signs
Temp Pulse Resp BP Pulse Ox
98.4 F 97 17 132/77 97
10/21/23 07:58 10/21/23 12:05 10/21/23 07:58 10/21/23 12:05 10/21/23 07:58
I&O
10/20/23 10/21/23 10/22/23
06:59 06:59 06:59
Intake Total 1919 720 / 720 480 / 480
Balance 1919 720 / 720 480 / 480
Review of Systems
-
History Source: Patient
Constitutional: Reports Weakness
EENT: Reports No Symptoms Reported
Respiratory: Reports No Symptoms
Cardiac: Reports No Symptoms
Abdomen/GI: Reports Diarrhea (1 episode of loose stool yesterday)
Breast: Reports No Symptoms
Genitourinary: Reports Frequency, Incontinence and Other (Pain with urination)
Musculoskeletal: Reports No Symptoms
Skin: Reports No Symptoms
Neuro: Reports Lightheadedness
Endocrine: Reports No Symptoms
Hematologic / Lymphatic: Reports No Symptoms
Allergy / Immunology: Reports No Symptoms
Physical Exam
-
General: Well Developed and Well Nourished
Respiratory: Clear to Auscultation
Cardiac: Regular Rhythm
GI: Soft, Nontender, Nondistended and Normal Bowel Sounds
Genito-urinary: Costovertebral Angle Tend (Improved)
Musculoskeletal: No Edema
Neuro: Awake, Alert and Oriented
Hematologic / Lymphatic: No Lymphadenopathy
Psych: Calm
[2023-10-21] MEDS: KCL ELIXIR 40 MEQ PO (14:02)
[2023-10-21 14:34] LABS: Potassium 3.9 mmol/L (3.5-5.1)
[2023-10-21 14:35] VITALS: BP 132/77; PULSE 97
[2023-10-21 14:45] VITALS: BP 129/79
[2023-10-21 14:55] LABS: Hematocrit 30.1 % (37.0-47.0); Hemoglobin 10.2 g/dL (12.0-16.0)
[2023-10-21 14:57] VITALS: BMI 29.3
[2023-10-21 15:14] VITALS: BP 127/68
[2023-10-21 16:19] LABS: Glucose - Point of Care 138 mg/dl (70-99)
[2023-10-21 16:57] LABS: Magnesium 1.9 mg/dl (1.6-2.3)
[2023-10-21] MEDS: DRISDOL (VITAMIN D2) 50000 UNITS PO (16:59)
== END 2023-10-21 19:33 | disposition home health service (06) | DRG 871 ==
LOC: 3 WEST ACU 22:54
PROVIDERS: Internal Medicine; Nurse Practitioner Family; ADMITTING PHYSICIAN Hospitalist; ATTENDING PHYSICIAN Hospitalist; CONSULT PHYSICIAN Specialist; EMERGENCY PHYSICIAN Emergency Medicine; FAMILY PHYSICIAN Internal Medicine; OTHER PHYSICIAN Internal Medicine Infectious Disease
DX: A41.51 Sepsis due to Escherichia coli [E. coli] (principal); R65.21 Severe sepsis with septic shock; N12 Tubulo-interstitial nephritis, not specified as acute or chronic; I31.39 Other pericardial effusion (noninflammatory); E87.20 Acidosis, unspecified; N39.0 Urinary tract infection, site not specified; I47.10 Supraventricular tachycardia, unspecified; N17.9 Acute kidney failure, unspecified; E87.6 Hypokalemia; D69.6 Thrombocytopenia, unspecified; I10 Essential (primary) hypertension
CPT/HCPCS: 74176; 74177; 80048; 80053; 81003; 81015; 82077; 82248; 82306; 82607; 82728; 82947; 82962; 83036; 83540; 83550; 83605; 83735; 84132; 84443; 85014; 85018; 85025; 87040; 87077; 87086; 87149; 87186; 87205; 87324; 87449; 93005; 96365; 97110; 97116; 97163; 97166; 97530; 97535; 99291; J3480; Q9967

== ENCOUNTER → 2023-11-25 07:55 | Outpatient (REF) | payer MEDICARE, SELFPAY | LOC: HWRCS 07:55 | PROVIDERS: ATTENDING PHYSICIAN Internal Medicine Cardiovascular Disease; FAMILY PHYSICIAN Internal Medicine | DX: I10 Essential (primary) hypertension (principal) | CPT/HCPCS: 93306 ==

== ENCOUNTER → 2023-12-13 08:04 | Outpatient (REF) | payer MEDICARE, SELFPAY | LOC: HWRAD 08:04 | PROVIDERS: ATTENDING PHYSICIAN Internal Medicine Cardiovascular Disease; PRIMARYCARE PHYSICIAN Internal Medicine | DX: Q24.8 Other specified congenital malformations of heart (principal) | CPT/HCPCS: 71250 ==

== ENCOUNTER 2024-04-20 19:56 | Inpatient (IN) | payer MEDICARE, SELFPAY ==
[2024-04-20] VITALS (7 sets, daily range): BP systolic 102–148; BP diastolic 64–89; BMI 24.8
[2024-04-20 12:29] LABS: COVID-19 Antigen Negative (Negative)
[2024-04-20 15:08] LABS: % Basophils 0.4 % (0-2); % Eosinophils 0.9 % (0-6); % Immature Granulocytes 0.4 % (0-0.5); % Monocytes 7.8 % (1.7-9.3); % Neutrophils 77.5 % (42.2-75.2); Absolute Basophils 0.1 10^3/uL (0-0.2); Absolute Eosinophils 0.1 10^3/uL (0-0.7); Absolute Immature Granulocytes 0.1 10^3/uL (0-0.05); Absolute Lymphocytes 1.8 10^3/uL (1.2-3.4); Absolute Monocytes 1.1 10^3/uL (0.1-0.6); Absolute Neutrophils 10.8 10^3/uL (1.4-6.5); Hematocrit 33.6 % (37.0-47.0); Mean Corp Hgb Conc. 32.7 g/dL (33.0-37.0); Mean Corpuscular Hgb 27.3 pg (27.0-31.0); Mean Corpuscular Volume 83.4 fL (81.0-99.0); Mean Platelet Volume 11.5 fL (7.4-10.4); Nucleated Red Blood Cells % 0 %; Platelet Count 234 10^3/uL (130-400); Red Blood Cell Count 4.03 10^6/uL (4.20-5.40); Red Cell Dist. Width 13.5 % (11.5-14.5)
[2024-04-20 15:30] LABS: ALT (SGPT) 11 U/L (0-35); AST (SGOT) 18 U/L (14-36); Albumin 3.5 g/dl (3.5-5.0); Alkaline Phosphatase 92 U/L (38-126); Blood Urea Nitrogen 20 mg/dl (7-17); Calcium 8.9 mg/dl (8.4-10.2); Carbon Dioxide 24 mmol/L (22-30); Chloride 100 mmol/L (98-107); Glucose 176 mg/dl (70-99); Lipase 34 U/L (23-300); Potassium 4.7 mmol/L (3.5-5.1); Sodium 135 mmol/L (135-145); Total Bilirubin 1.1 mg/dl (0.2-1.3); Total Protein 6.9 g/dl (6.3-8.2); eGFR > 60.00
--- NOTE | 2024-04-20 15:58 | ED.GENMED ---
History of Present Illness
<Yumiko Guidry DO - Last Filed: 04/20/24 16:19>
General
Chief Complaint: Generalized Pain
Time Seen by Provider: 04/20/24 14:03
History of Present Illness
History of Present Illness:
63-year-old female with history of diabetes presenting to the emergency department for multiple complaints. Patient reports for the past 2 weeks has been having a cough which is productive. She also notes intermittent fevers. In the past few days
she started to develop right-sided flank pain with radiation to the right side of her abdomen and urinary urgency. Notes that she has been standing up and will have urinary incontinence. Denies any associated midline back pain. Denies any
weakness or numbness to her extremities. Does note some dysuria. Denies chest pain or difficulty breathing. Denies known sick contacts. Denies any bowel issues. Denies additional acute medical complaints
Past History
<Yumiko Guidry DO - Last Filed: 04/20/24 16:19>
Past History
ED Past Medical History: Arrthythmia (History of SVT), Hypercholesterolemia and IDDM
ED Past Surgical History: Cardiac (Cardiac ablation in 2003) and Other (Spinal fusion in 1988, tubal ligation and 1999, a D&C in 2001,)
Social History
Tobacco: Non-smoker
Alcohol: None
Drug: None
Personal:
Living: with family
Employment: Employed
Family History
Family History: Diabetes and Hypertension
Phy Exam
<Yumiko Guidry DO - Last Filed: 04/20/24 16:19>
Physical Exam
Physical Exam:
General: Well-appearing, no clinical signs of dehydration, nontoxic and in no acute distress
HEENT: protecting airway
Neck: appears supple
CV: Normal heart rate, regular rhythm
Resp: No accessory muscle use, no increased work of breathing, lungs clear to auscultation bilaterally
Abd: Soft and non-distended, generalized tenderness to the right lower quadrant of the abdomen. Right flank tenderness. No overlying skin changes
Extremities: No deformities, no swelling. No midline spinal tenderness.
Neuro: alert, no focal neurologic deficit. Strength and sensation intact bilateral lower extremities.
: deferred
Rectal: deferred
Psych: Normal affect
Skin: Intact
Course
<Yumiko Guidry, DO - Last Filed: 04/20/24 16:19>
Orders/Labs/Results
Orders:
Orders
04/20/24 11:53
COVID-19 Antigen Urgent
Source: Nasal Swab
Influenza A+B Rapid Molecular Urgent
[facility] Source: Nasal Swab
Specimen Description:
04/20/24 14:35
CT Abd/pelvis W Iv Cont Urgent
Comment:
Reason For Exam: right sided pain, urinary symptoms
Complete Blood Count/With Diff Urgent
Comprehensive Metabolic Panel Urgent
Lipase Urgent
04/20/24 14:36
CR Chest - 2 Views Urgent
Comment:
Reason For Exam: cough
04/20/24 16:09
0.9% Sodium Chloride 1000 ml [Nss] 1,000 ml IV BOLUS
04/20/24 16:15
Blood Culture Q30M
[facility] Source: Blood/Venous
Specimen Description:
04/20/24 16:28
Lactic Acid Urgent
04/20/24 16:29
Blood Culture Q30M
[facility] Source: Blood/Venous
Specimen Description:
04/20/24 18:14
Urinalysis Reflex To Culture Urgent
Date Specimen was Collected: 04/20/24
Time Specimen was Collected: 18:14
Urine Microscopic Reflex Cult Urgent
Urine Culture Urgent
[place] Source: U
Specimen Description:
Date Specimen was Collected: 04/20/24
Time Specimen was Collected: 18:14
04/20/24 18:53
CefTRIAXone [Rocephin] 1,000 mg IV NOW STA
04/20/24 19:02
0.9% Sodium Chloride 1000 ml [Nss] 1,000 ml IV BOLUS
HYDROmorphone [Dilaudid] 0.5 mg IV NOW STA
Abnormal Lab Results
04/20/24 04/20/24
14:35 18:14
WBC 14.0 H 10^3/uL
(4.8-10.8)
RBC 4.03 L 10^6/uL
(4.20-5.40)
Hgb 11.0 L g/dL
(12.0-16.0)
Hct 33.6 L %
(37.0-47.0)
MCHC 32.7 L g/dL
(33.0-37.0)
MPV 11.5 H fL
(7.4-10.4)
Abs Immat Gran (auto) 0.1 H 10^3/uL
(0-0.05)
Absolute Neuts (auto) 10.8 H 10^3/uL
(1.4-6.5)
Absolute Monos (auto) 1.1 H 10^3/uL
(0.1-0.6)
Neutrophils % 77.5 H %
(42.2-75.2)
Lymphocytes % 13.0 L %
(20.5-51.1)
BUN 20 H mg/dl
(7-17)
Glucose 176 H mg/dl
(70-99)
Urine Ketones 2+ A
(Negative)
Ur Occult Blood Reflex 4+ A
(Negative)
Leukocyte Esterase Rfl 3+ A
(Negative)
Urine Albumin (Reflex) 3+ A
(Neg - Trace)
04/20/24 14:35
04/20/24 14:35
Vital Signs
Initial and Last Documented VS:
Initial Vital Signs
Temp Pulse Resp BP Pulse Ox
37.2 C 127 16 102/71 98
04/20/24 11:43 04/20/24 11:43 04/20/24 11:43 04/20/24 11:43 04/20/24 11:43
Last Documented Vital Signs
Temp Pulse Resp BP Pulse Ox
37.2 C 102 19 148/89 98
04/20/24 11:43 04/20/24 19:03 04/20/24 16:45 04/20/24 19:03 04/20/24 16:45
<Juan R Ro, DO - Last Filed: 04/20/24 19:07>
Orders/Labs/Results
Orders:
Orders
04/20/24 11:53
COVID-19 Antigen Urgent
Source: Nasal Swab
Influenza A+B Rapid Molecular Urgent
[facility] Source: Nasal Swab
Specimen Description:
04/20/24 14:35
CT Abd/pelvis W Iv Cont Urgent
Comment:
Reason For Exam: right sided pain, urinary symptoms
Complete Blood Count/With Diff Urgent
Comprehensive Metabolic Panel Urgent
Lipase Urgent
04/20/24 14:36
CR Chest - 2 Views Urgent
Comment:
Reason For Exam: cough
04/20/24 16:09
0.9% Sodium Chloride 1000 ml [Nss] 1,000 ml IV BOLUS
04/20/24 16:15
Blood Culture Q30M
[facility] Source: Blood/Venous
Specimen Description:
04/20/24 16:28
Lactic Acid Urgent
04/20/24 16:29
Blood Culture Q30M
[facility] Source: Blood/Venous
Specimen Description:
04/20/24 18:14
Urinalysis Reflex To Culture Urgent
Date Specimen was Collected: 04/20/24
Time Specimen was Collected: 18:14
Urine Microscopic Reflex Cult Urgent
Urine Culture Urgent
[place] Source: U
Specimen Description:
Date Specimen was Collected: 04/20/24
Time Specimen was Collected: 18:14
04/20/24 18:53
CefTRIAXone [Rocephin] 1,000 mg IV NOW STA
04/20/24 19:02
0.9% Sodium Chloride 1000 ml [Nss] 1,000 ml IV BOLUS
HYDROmorphone [Dilaudid] 0.5 mg IV NOW STA
Abnormal Lab Results
04/20/24 04/20/24
14:35 18:14
WBC 14.0 H 10^3/uL
(4.8-10.8)
RBC 4.03 L 10^6/uL
(4.20-5.40)
Hgb 11.0 L g/dL
(12.0-16.0)
Hct 33.6 L %
(37.0-47.0)
MCHC 32.7 L g/dL
(33.0-37.0)
MPV 11.5 H fL
(7.4-10.4)
Abs Immat Gran (auto) 0.1 H 10^3/uL
(0-0.05)
Absolute Neuts (auto) 10.8 H 10^3/uL
(1.4-6.5)
Absolute Monos (auto) 1.1 H 10^3/uL
(0.1-0.6)
Neutrophils % 77.5 H %
(42.2-75.2)
Lymphocytes % 13.0 L %
(20.5-51.1)
BUN 20 H mg/dl
(7-17)
Glucose 176 H mg/dl
(70-99)
Urine Ketones 2+ A
(Negative)
Ur Occult Blood Reflex 4+ A
(Negative)
Leukocyte Esterase Rfl 3+ A
(Negative)
Urine Albumin (Reflex) 3+ A
(Neg - Trace)
04/20/24 14:35
04/20/24 14:35
Vital Signs
Initial and Last Documented VS:
Initial Vital Signs
Temp Pulse Resp BP Pulse Ox
37.2 C 127 16 102/71 98
04/20/24 11:43 04/20/24 11:43 04/20/24 11:43 04/20/24 11:43 04/20/24 11:43
Last Documented Vital Signs
Temp Pulse Resp BP Pulse Ox
37.2 C 102 19 148/89 98
04/20/24 11:43 04/20/24 19:03 04/20/24 16:45 04/20/24 19:03 04/20/24 16:45
<Yumiko Guidry DO - Last Filed: 04/20/24 16:19>
MDM/Problems Addressed
MDM/Problems Addressed:
63-year-old female history of diabetes presenting to the emergency department for persistent cough and right-sided abdominal pain with urinary issues. Vital signs on arrival are significant for tachycardia, which improved without intervention.
On exam patient is resting comfortably, no acute distress. Regarding cough, benign cardiac and pulmonary exam. No focal abnormal lung sounds. Suspect viral syndrome. However given duration of symptoms and report of fevers, pneumonia
consideration. Will plan for chest x-ray imaging. Regarding right sided flank pain and right-sided abdominal pain with urinary symptoms, suspected urinary tract infection and possible ascending infection with pyelonephritis. Patient does note
component of incontinence. Without concern for central spinal component. Patient without any tenderness to the spinal region on exam and no weakness or numbness to extremities, no bowel issues. Will plan for laboratory analysis including
urinalysis. Will also obtain CT abdomen and pelvis imaging for further assessment.
16:00 - patient with leukocytosis, meeting SIRS criteria. Will add lactic acid and blood cultures. Pending imaging
<Yumiko Davala, DO - Last Filed: 04/20/24 16:19>
*Critical Care Note
Total Time (30-74mins, 75-104mins- exclusive of procedures): Not Applicable
<Juan R Gu Jia, DO - Last Filed: 04/20/24 19:07>
Update Note
Update Note:
I evaluated the patient at bedside at [address] and urinalysis report. CT does show a proximal stone. Patient states that she does have 2 collecting systems. However only [address] was [address] on [address]. I notified Dr. Vela of the CT report.
Initial hypotension has improved now with pressures in the 140s. She is given additional IV fluids and will start Rocephin.
ED Attending Note
<Yumiko Guidry DO - Last Filed: 04/20/24 16:19>
-
Portions of this chart may have been created with voice recognition software.� Occasional wrong word or��sound alike� substitutions may have occurred due to the inherent limitations of voice recognition software.
Discharge Plan
Departure
Patient Disposition: Admit
Date of Disposition: 04/20/24
Time of Disposition: 19:03
Presentation/result/management discussed w/ accepting MD/DO: Hospitalist
Discharge Problem:
Right ureteral calculus
Prescriptions:
No Action
acetaminophen [Tylenol Extra Strength] 500 MG tablet
500 mg PO DAILYPRN PRN (Reason: mild pain)
cyanocobalamin (vitamin B-12) [Vitamin B-12] 500 MCG tablet
1,000 mcg PO DAILY
clobetasol 0.05 % Cream
1 applic TOPICAL DAILYPRN PRN (Reason: eczema)
oxycodone-acetaminophen 5-325 mg Tablet
1 tab PO Q8HPRN PRN (Reason: severe pain)
Patient Comments:
10/14/23: last filled 09/26/23 for 45 tablets TMT pharmacy
gabapentin 800 mg Tablet
800 mg PO BID
pantoprazole 40 mg Tablet,Delayed Release (Dr/Ec)
40 mg PO DAILY
lidocaine 5 % Adhesive Patch,Medicated
1 patch TOPICAL DAILYPRN PRN (Reason: lower back)
rosuvastatin 20 mg Tablet
20 mg PO DAILY
insulin glargine [Lantus Solostar U-100 Insulin] 100 unit/mL (3 mL) Insulin Pen
0 unit SC DAILY
Patient Comments:
10/14/23: Sliding scale dose based on blood sugar
Linzess 145 mcg Capsule
145 mcg PO DAILY
Mounjaro 7.5 mg/0.5 mL Pen Injector
7.5 mg SC WE
metoprolol tartrate 25 mg Tablet
25 mg PO BID Qty: 60 0RF
cefuroxime axetil 500 mg Tablet
500 mg PO BID Qty: 14 0RF
cholecalciferol (vitamin D3) [Vitamin D3] 25 mcg (1,000 unit) capsule
25 mcg PO DAILY Qty: 30 3RF
Referrals:
Denise Johnson MD [Family Provider] -
Interventions
Interventions:
*Risk Screen - Suicide Last Done: 04/20/24 14:29
*General Assessment Last Done: 04/20/24 14:29
*Neglect/Abuse Screening Last Done: 04/20/24 14:29
*ED COVID-19 Vaccine History Last Done: 04/20/24 14:29
Discharge Date and Time
Print Language: CZECH
[2024-04-20] MEDS: NSS 1000 IV ×3 (16:30→21:33)
[2024-04-20 16:50] LABS: Lactic Acid 0.9 mmol/L (0.7-2.0)
[2024-04-20 18:44] LABS: Urine Albumin 3+ (Neg - Trace); Urine Bilirubin Negative (Negative); Urine Character Cloudy (Clear); Urine Color Yellow; Urine Glucose Negative (Negative); Urine Ketone 2+ (Negative); Urine Leukocyte 3+ (Negative); Urine Nitrite Negative (Negative); Urine Occult Blood 4+ (Negative); Urine Specific Gravity 1.015 (<1.030); Urine Urobilinogen 1+ (Neg - 1+)
[2024-04-20] MEDS: ROCEPHIN 1000 MG IV (19:09)
[2024-04-20] MEDS: DILAUDID 0.5 MG IV (19:09)
[2024-04-20 19:10] LABS: Urine Squamous Cell 0-2 /LPF (Few)
[2024-04-20 19:11] LABS: Urine White Cell >100 /HPF (0-5)
--- NOTE | 2024-04-20 19:40 | HPS.HSE ---
Family Physician
-
Family Physician: Denise Johnson
Chief Complaint
-
Flank Pain, incontinence
History of Present Illness
Patient is a 63y F with PMH significant for DM-II, DDD, cross-fused kidney and nephrolithiasis who presents to ED complaining of R flank and groin pain. Patient reports about one week of cold and cough symptoms. Yesterday she developed pain in
the R lower back / hip area with radiation around to the anterior aspect / groin. She also appreciated urinary incontinence and dysuria. No hematuria. No fevers / chills. No N/V/D. Patient has prior history of kidney stones requiring lithotripsy
in the past. She was last admitted at in 10/2023 with pyelonephritis.
Medical History
Past Medical History
Past Medical History: Reports Other
Additional Past Medical History:
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
DM-II
Hypertension / Orthostatic Hypotension
SVT (s/p ablation)
Pericardial Cyst
Nephrolithiasis
Lumbar DDD
Past Surgical History: Reports Other
Additional Past Surgical History:
Tubal Ligation
Gastric Sleeve
SVT Ablation
Lithotripsy
Lumbar Fusion
Social History
Tobacco: Non-smoker
Alcohol: None
Drug: None
Family History
Family History: Diabetes and Hypertension
Allergies / Home Medications
Allergies reflects when Allergies were last updated in [employer].
Home Medications with original date entered in [employer]
Allergy/Medication List:
Allergies
Allergy/AdvReac Type Severity Reaction Status Date / Time
No Known Allergies Allergy Verified 04/20/24 11:47
Home Medications
acetaminophen 500 mg tablet (Tylenol Extra Strength) 500 mg PO DAILYPRN PRN mild pain 10/09/11
clobetasol 0.05 % topical cream 1 applic topical DAILYPRN PRN eczema 10/14/23
gabapentin 800 mg tablet 800 mg PO BID Pain 10/14/23
insulin glargine 100 unit/mL (3 mL) subcutaneous pen (Lantus Solostar U-100 Insulin) 18 unit SC DAILY Diabetes 10/14/23
oxycodone-acetaminophen 5 mg-325 mg tablet 1 tab PO Q8HPRN PRN severe pain 10/14/23
pantoprazole 40 mg tablet,delayed release 40 mg PO DAILY Gastrointestinal Issue 10/14/23
rosuvastatin 20 mg tablet 20 mg PO DAILY High Cholesterol 10/14/23
tirzepatide 7.5 mg/0.5 mL subcutaneous pen injector (Mounjaro) 7.5 mg SC WE Diabetes 10/14/23
cholecalciferol (vitamin D3) 25 mcg (1,000 unit) capsule (Vitamin D3) 25 mcg PO DAILY #30 caps 10/21/23
cyanocobalamin (vitamin B-12) 1,000 mcg tablet 1,000 mcg PO DAILY 04/20/24
insulin lispro 100 unit/mL subcutaneous pen (Humalog KwikPen (U-100) Insulin) 5 unit SC AC 04/20/24
lidocaine 5 % topical ointment 1 applic topical DAILYPRN PRN back pain 04/20/24
midodrine 2.5 mg tablet 2.5 mg PO TID 04/20/24
Review of Systems
-
History Source: Patient
A 12 point ROS was completed and negative except as noted: Yes
Constitutional: Reports Fatigue; Denies Fever or Chills
EENT: Denies Sore Throat
Respiratory: Reports Cough; Denies Trouble Breathing
Cardiac: Denies Chest Pain or Palpitations
Abdomen/GI: Denies Abdominal Pain, Nausea, Vomiting or Diarrhea
: Reports Dysuria, Frequency, Flank Pain and Incontinence; Denies Bleeding
Musculoskeletal: Denies Joint Pain or Edema
Neurological: Denies Dizzy or Headache
Psych: Denies Depression or Anxiety
Physical Exam
Vital Signs
Vital Signs
Temp Pulse Resp BP Pulse Ox
98.9 F 102 19 148/89 98
04/20/24 11:43 04/20/24 19:03 04/20/24 16:45 04/20/24 19:03 04/20/24 16:45
Physical Exam
General: Other (63y F in no acute distress.)
HEENT: Other (Dry MM. Neck supple.)
Respiratory: Clear; No Wheezes, Rales or Rhonchi
Cardiac: S1/S2 and Tachycardia; No Murmur
GI: Soft, Non Tender, Non Distended and Normal Bowel Sounds
Genito-urinary: Other (R CVAT.)
Musculoskeletal: No Clubbing, No Cyanosis and No Edema
Neuro: AO x 3
Laboratory Results
-
04/20/24 14:35
04/20/24 14:35
Laboratory Results
Lactic Acid 0.9 mmol/L (0.7-2.0) 04/20/24 16:28
Total Bilirubin 1.1 mg/dl (0.2-1.3) 04/20/24 14:35
AST 18 U/L (14-36) 04/20/24 14:35
ALT 11 U/L (0-35) 04/20/24 14:35
Alkaline Phosphatase 92 U/L (38-126) 04/20/24 14:35
Lipase 34 U/L (23-300) 04/20/24 14:35
Impression/Plan
-
A/P: Patient is 63y F with PMH significant for DM-II, SVT s/p ablation and prior kidney stones who presents to ED complaining of R flank pain / groin pain and malaise.
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
Hydronephrosis secondary to the above
UTI secondary to the above
Sepsis secondary to the above
- Admit for further evaluation and treatment.
- Patient presents with tachycardia, leukocytosis and evidence for UTI / obstructing stone by UA and imaging.
- NPO, IVFs, abx, pain control / supportive care.
- Urology consulted for further evaluation / possible cysto.
- Follow-up culture data.
- Tamsulosin / strain urine for now.
- Follow fever curve. Monitor for worsening / new symptoms.
- Notify Urology if fever increases > 101.5.
DM-II
- Stable. Continue Lantus at decreased dose while NPO.
- Follow glucose and cover with SSI as needed.
- Update A1C.
Hypertension / Hypotension
- Previously maintained on metoprolol for BP control and tachycardia.
- Now on midodrine TID at low dose?
- Continue midodrine as PRN for now.
- Follow BP and adjust medications as needed.
- IVFs for now secondary to sepsis.
Peripheral Neuropathy
- Stable. Continue current home dose of gabapentin.
History of SVT s/p Ablation (remote)
Lumbar DDD
History of Gastric Sleeve
- Stable. No acute issues / complaints.
DVT Prophylaxis: SCDs
Code Status: Full
--- NOTE | 2024-04-20 21:24 | PTCARENOTE ---
Pt walked from stretcher to bed w/ steady gait. Pt aaox, VSS, and instructed to call to use bathroom since urine needs to be strained. Pt placed on tele #[phone], sinus tach. Pt oriented to room, call schaffer within reach, and plan of care ongoing.
[2024-04-20] MEDS: NEURONTIN 800 MG PO (21:33)
[2024-04-20 23:30] LABS: Glucose - Point of Care 135 mg/dl (70-99)
[2024-04-21] VITALS (10 sets, daily range): BP systolic 115–145; BP diastolic 71–85
[2024-04-21] MEDS: DILAUDID 0.5 MG IV (02:06)
[2024-04-21 06:27] LABS: Glucose - Point of Care 134 mg/dl (70-99)
[2024-04-21] MEDS: CRESTOR 20 MG PO (08:22)
[2024-04-21] MEDS: NEURONTIN 800 MG PO ×2 (08:23→20:36)
[2024-04-21] MEDS: FLOMAX 0.4 MG PO (08:23)
[2024-04-21 08:41] LABS: Blood Urea Nitrogen 16 mg/dl (7-17); Calcium 8.5 mg/dl (8.4-10.2); Carbon Dioxide 21 mmol/L (22-30); Chloride 107 mmol/L (98-107); Estimated Creatinine Clearance 82 ml/min; Glucose 152 mg/dl (70-99); Potassium 4.6 mmol/L (3.5-5.1); Sodium 137 mmol/L (135-145); eGFR > 60.00
[2024-04-21 09:09] LABS: Hematocrit 33.4 % (37.0-47.0); Hemoglobin 11.1 g/dL (12.0-16.0); Mean Corp Hgb Conc. 33.2 g/dL (33.0-37.0); Mean Corpuscular Hgb 27.4 pg (27.0-31.0); Mean Corpuscular Volume 82.5 fL (81.0-99.0); Red Blood Cell Count 4.05 10^6/uL (4.20-5.40); Red Cell Dist. Width 13.3 % (11.5-14.5); White Blood Cell Count 10.9 10^3/uL (4.8-10.8)
--- NOTE | 2024-04-21 09:46 | W.PN.URO.CBU ---
Today's Communication / Plan
-
npo for op room larer today
Assessment / Plan
-
attempt at least stent if not tremoval 4 mm stone prox rt upper pole moiety uret has other stones in pelvis
Diagnosis
-
Date of Service: April 21, 2024
-
Patient Diagnosis:pain colic due to rt 4 mm stone prox rt ureteerof upper pole moiety in crossed renal ectopia
Post Op Day:
Subjective
-
colic no fevr chils
Objective
-
Vital Signs
Temp Pulse Resp BP Pulse Ox
97.8 F 103 16 121/75 99
04/21/24 07:27 04/21/24 07:27 04/21/24 07:27 04/21/24 07:27 04/21/24 07:27
Intake and Output
04/20/24 04/21/24 04/22/24
06:59 06:59 06:59
Output Total 200 / 200
Balance -200 / -200
Output:
Urine, Voided 200 / 200
Laboratory Results
04/21/24 07:54
04/21/24 07:54
Review of Systems
-
Abdomen/GI: Nausea and Pain
: Flank Pain
Physical Exam
-
General - well developed, well nourished non toxic but pain
Chest - clear bilaterally
Abdomen - soft, non-tender, positive bowel sounds, no CVAT, no incisional pain or distention
Genitalia - normal
Rectal - normal
Skin - warm & dry with no rash
Neuro - AOx3, no motor deficits
Extremities - no clubbing, no cyanosis, no edema
Incision - clean, dry
Dressing - clean, dry, intact
Care Review
Data Reviewed
CT Scan: Image Pers Reviewed
[2024-04-21 10:13] LABS: Glycohemoglobin (HgbA1c) 7.2 % (4.0-5.6)
[2024-04-21] MEDS: LANTUS SC (10:15)
[2024-04-21] MEDS: NSS 1000 IV (10:40)
[2024-04-21 11:04] LABS: Glucose - Point of Care 95 mg/dl (70-99)
--- NOTE | 2024-04-21 11:04 | W.PN.HOSP.TC ---
Today's Communication/Plan
-
continue IV abx
NPO for cysto today
Assessment / Plan
Assessment / Plan
Assessment:
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
Hydronephrosis secondary to the above
UTI secondary to the above
Sepsis secondary to the above (tachycardia, leukocytosis, UTI)
- NPO with IVFs
- pain control
- IV Rocephin, day 1 pending cultures
- Urology following; Cysto today
DM-II
- Stable. hold Lantus while NPO.
- Follow glucose and cover with SSI as needed.
- A1C 7.2%
Hypertension / Hypotension
- Previously maintained on metoprolol for BP control and tachycardia.
- Now on midodrine TID at low dose?
- Continue midodrine as PRN for now.
- Follow BP and adjust medications as needed.
- IVFs for now secondary to sepsis.
Peripheral Neuropathy
- Stable. Continue current home dose of gabapentin.
History of SVT s/p Ablation (remote)
Lumbar DDD
History of Gastric Sleeve
- Stable. No acute issues / complaints.
DVT Prophylaxis: SCDs
Code Status: Full
Anticipated Discharge: > 48 hours
Subjective/Interval History
-
Date of Service: April 21, 2024
resting comfortably
some flank pain, well controlled with pain
Objective Data
-
Labs:
Laboratory Results
04/21/24
07:54
WBC 10.9 H
Hgb 11.1 L
Hct 33.4 L
Plt Count
Sodium 137
Potassium 4.6
Chloride 107
Carbon Dioxide 21 L
BUN 16
Creatinine 0.7
Glucose 152 H
Calcium 8.5
Vital Signs:
Vital Signs
Temp Pulse Resp BP Pulse Ox
97.8 F 103 16 121/75 99
04/21/24 07:27 04/21/24 07:27 04/21/24 07:27 04/21/24 07:27 04/21/24 07:27
I&O
04/20/24 04/21/24 04/22/24
06:59 06:59 06:59
Output Total 200 / 200
Balance -200 / -200
Physical Exam
-
General: No Apparent Distress
HEENT: Normocephalic and Atraumatic
Respiratory: Negative Wheezes
Cardiac: Regular Rhythm and S1/S2
GI: Soft and Nontender
Genito-urinary: No Costovertebral Tender
Musculoskeletal: No Edema
Neuro: AO x 3
Psych: Calm
Data Reviewed
-
Total Time Spent with Patient (in minutes): 41
Labs: Labs Reviewed by me
--- NOTE | 2024-04-21 14:03 | W.SUR.POST ---
Surgical Immediate Post Op
Note
Pre Op Diagnosis: prox rt uretral stone with obstruction
Post Op Diagnosis: same renal crossed fusion
Procedure Performed: rt u/l/s rgp
Primary Surgeon: shon
Secondary Surgeons:
Anesthesia:general
Estimated Blood Loss: 2
Fluids: nss
Drains/Shunts: 6 fr 24 cm jj stent
Specimens/Cultures:
Doppler/Duplex/Angio (Y/N):
Complications0:
Operative Findings: no urine rt u/s]o with stone stuck in prox ureter laser to gat past stone renal pelvis with pyuria left stent
[2024-04-21 14:15] LABS: Glucose - Point of Care 95 mg/dl (70-99)
[2024-04-21] MEDS: Pyridium 200 MG PO (14:37)
[2024-04-21] MEDS: NSS IV (15:17)
[2024-04-21 16:23] LABS: Glucose - Point of Care 127 mg/dl (70-99)
[2024-04-21] MEDS: NOVOLOG FLEXPEN-LOW RESISTANCE SC (16:32)
[2024-04-21] MEDS: ROCEPHIN 1000 MG IV (20:36)
[2024-04-21] MEDS: STERILE WATER FOR INJECTION 10 ML IV (20:36)
[2024-04-21 21:30] LABS: Glucose - Point of Care 326 mg/dl (70-99)
[2024-04-21] MEDS: LOPRESSOR 2.5 MG IV (21:55)
[2024-04-21] MEDS: TYLENOL 650 MG PO (23:27)
[2024-04-21] MEDS: LOPRESSOR 5 MG IV (23:51)
[2024-04-22] VITALS (19 sets, daily range): BP systolic 76–124; BP diastolic 32–71
[2024-04-22] MEDS: NSS 1000 IV ×3 (00:15→09:53)
[2024-04-22 00:39] LABS: % Basophils 0.2 % (0-2); % Immature Granulocytes 2.1 % (0-0.5); % Monocytes 5.1 % (1.7-9.3); % Neutrophils 90.6 % (42.2-75.2); Absolute Immature Granulocytes 0.4 10^3/uL (0-0.05); Absolute Lymphocytes 0.3 10^3/uL (1.2-3.4); Absolute Monocytes 0.9 10^3/uL (0.1-0.6); Absolute Neutrophils 15.4 10^3/uL (1.4-6.5); Hematocrit 32.9 % (37.0-47.0); Mean Corp Hgb Conc. 33.4 g/dL (33.0-37.0); Mean Corpuscular Hgb 27.6 pg (27.0-31.0); Mean Corpuscular Volume 82.7 fL (81.0-99.0); Mean Platelet Volume 11.4 fL (7.4-10.4); Nucleated Red Blood Cells % 0 %; Platelet Count 228 10^3/uL (130-400); Red Blood Cell Count 3.98 10^6/uL (4.20-5.40); Red Cell Dist. Width 13.1 % (11.5-14.5); White Blood Cell Count 16.9 10^3/uL (4.8-10.8)
[2024-04-22 00:47] LABS: Blood Urea Nitrogen 15 mg/dl (7-17); Calcium 8.6 mg/dl (8.4-10.2); Carbon Dioxide 16 mmol/L (22-30); Chloride 103 mmol/L (98-107); Estimated Creatinine Clearance 82 ml/min; Glucose 321 mg/dl (70-99); Potassium 4.1 mmol/L (3.5-5.1); Sodium 136 mmol/L (135-145); eGFR > 60.00
[2024-04-22 01:05] LABS: Lactic Acid 1.5 mmol/L (0.7-2.0)
[2024-04-22] MEDS: NOVOLOG FLEXPEN 7 UNITS SC (01:38)
[2024-04-22] MEDS: LOPRESSOR 5 MG IV (05:29)
[2024-04-22] MEDS: TYLENOL 650 MG PO ×4 (05:32→22:59)
[2024-04-22 06:53] LABS: Blood Urea Nitrogen 16 mg/dl (7-17); Calcium 8.6 mg/dl (8.4-10.2); Carbon Dioxide 16 mmol/L (22-30); Chloride 107 mmol/L (98-107); Estimated Creatinine Clearance 72 ml/min; Glucose 243 mg/dl (70-99); Potassium 3.9 mmol/L (3.5-5.1); Sodium 138 mmol/L (135-145); eGFR > 60.00
[2024-04-22 07:13] LABS: Hematocrit 32.2 % (37.0-47.0); Hemoglobin 10.6 g/dL (12.0-16.0); Mean Corp Hgb Conc. 32.9 g/dL (33.0-37.0); Mean Corpuscular Hgb 27.2 pg (27.0-31.0); Mean Corpuscular Volume 82.6 fL (81.0-99.0); Mean Platelet Volume 11.3 fL (7.4-10.4); Platelet Count 235 10^3/uL (130-400); Red Cell Dist. Width 13.3 % (11.5-14.5); White Blood Cell Count 20.4 10^3/uL (4.8-10.8)
--- NOTE | 2024-04-22 07:13 | PTCARENOTE ---
LEVER MILLER notified @2134 patient on tele with HR sustaining at 140. 1xdose of IV lopressor 2.5 mg order and administered @2154. Patient's HR sustaining in the 130s after 1xdose of lopressor. Patient with temp of 103.1 @2325 with HR sustaining in the 140s
BP 143/85, LEVER MILLER made aware, Stat dose of IV lopressor 5 mg ordered and administered @2351, prn tylenol administered. CBC, BMP and lactic acid labs ordered. Prn IV lopressor 5 mg q4h ordered as well. Lab result, glucose 321, 7 units of Novolog ordered
and administered @0138. Patient asymptomatic, care plan continues.
[2024-04-22 07:41] LABS: Glucose - Point of Care 264 mg/dl (70-99)
[2024-04-22 07:57] LABS: % Basophils 0.3 % (0-2); % Lymphocytes 2.6 % (20.5-51.1); % Monocytes 7.3 % (1.7-9.3); % Neutrophils 82.8 % (42.2-75.2); Absolute Basophils 0.1 10^3/uL (0-0.2); Absolute Immature Granulocytes 1.4 10^3/uL (0-0.05); Absolute Lymphocytes 0.5 10^3/uL (1.2-3.4); Absolute Monocytes 1.5 10^3/uL (0.1-0.6); Absolute Neutrophils 16.9 10^3/uL (1.4-6.5); Nucleated Red Blood Cells % 0 %
--- NOTE | 2024-04-22 08:04 | W.PN.HOSP.TC ---
Today's Communication/Plan
-
bolus + maintenance IVF
resume TID midodrine
Zosyn in favor of Rocephin due to fevers, Tylenol for fevers
await rapid labs including trop, TSH
stop all metoprolol orders
Assessment / Plan
Assessment / Plan
Assessment:
Rapid response 04/22 AM for symptomatic hypotension
- stat labs pending
- IVF bolus + maintenance IVF
- resume home Midodrine; stop all Metoprolol orders
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
Hydronephrosis secondary to the above
UTI secondary to the above
Sepsis secondary to the above (tachycardia, leukocytosis, UTI)
- pain control
- upgrade to Zosyn from Rocephin due to ongoing fevers overnight, Zosyn day 1
- follow urine/blood cultures
- s/p stent/stone procedure 04/21
- Urology following
DM-II
- uncontrolled in setting of sepsis
- resume Lantus and Aspart. continue SSI.
- A1C 7.2%
Hypertension / Hypotension
- Previously maintained on metoprolol for BP control and tachycardia. was resumed in hospital overnight 04/21 into 04/22 -> led to hypotension
- Now on midodrine TID - resume today as hypotensive
- Follow BP and adjust medications as needed.
- IVFs as above for sepsis.
Peripheral Neuropathy
- Stable. Continue current home dose of gabapentin.
History of SVT s/p Ablation (remote)
Lumbar DDD
History of Gastric Sleeve
- Stable. No acute issues / complaints.
DVT Prophylaxis: SCDs
Code Status: Full
Anticipated Discharge: > 48 hours
Subjective/Interval History
-
Date of Service: April 22, 2024
rapid response called this AM for symptomatic hypotension, also febrile all through night shift manager, received 2 Tylenol doses
patient reports dizziness, lightheadedness, fatigue, BPs in 80s, HR 130 - sinus
stat labs ordered
fluids hung
Objective Data
-
Labs:
Laboratory Results
04/22/24 04/22/24 04/22/24
00:23 06:18 07:49
WBC 16.9 H 20.4 H Pending
Hgb 11.0 L 10.6 L Pending
Hct 32.9 L 32.2 L Pending
Plt Count 228 235 Pending
PT Pending
INR Pending
APTT Pending
Sodium 136 138 Pending
Potassium 4.1 3.9 Pending
Chloride 103 107 Pending
Carbon Dioxide 16 L 16 L Pending
BUN 15 16 Pending
Creatinine 0.7 0.8 Pending
Glucose 321 H 243 H Pending
Calcium 8.6 8.6 Pending
Total Bilirubin Pending
AST Pending
ALT Pending
Alkaline Phosphatase Pending
Vital Signs:
Vital Signs
Temp Pulse Resp BP Pulse Ox
101.2 F H 132 16 91/53 97
04/22/24 07:50 04/22/24 07:50 04/22/24 07:50 04/22/24 07:50 04/22/24 07:50
I&O
04/21/24 04/22/24 04/23/24
06:59 06:59 06:59
Intake Total 2160 / 2160
Output Total 200 / 200 1065 / 1065
Balance -200 / -200 1095 / 1095
Physical Exam
-
General: Appears in Distress (dizziness, lightheadedness)
HEENT: Normocephalic and Atraumatic
Respiratory: Clear to Auscultation; Negative Wheezes or Rales
Cardiac: Regular Rhythm, S1/S2 and Tachycardic
GI: Soft, Nontender and Nondistended
Musculoskeletal: No Edema
Neuro: AO x 3
Psych: Calm
Data Reviewed
-
Total Time Spent with Patient (in minutes): 51
Labs: Labs Reviewed by me
[2024-04-22 08:05] LABS: % Basophils 0.4 % (0-2); % Lymphocytes 2.5 % (20.5-51.1); % Neutrophils 85.1 % (42.2-75.2); Absolute Basophils 0.1 10^3/uL (0-0.2); Absolute Lymphocytes 0.5 10^3/uL (1.2-3.4); Absolute Monocytes 1.4 10^3/uL (0.1-0.6); Absolute Neutrophils 16.6 10^3/uL (1.4-6.5); Hematocrit 32.9 % (37.0-47.0); Hemoglobin 10.8 g/dL (12.0-16.0); Mean Corp Hgb Conc. 32.8 g/dL (33.0-37.0); Mean Corpuscular Hgb 27.3 pg (27.0-31.0); Mean Corpuscular Volume 83.1 fL (81.0-99.0); Mean Platelet Volume 11.2 fL (7.4-10.4); Nucleated Red Blood Cells % 0 %; Platelet Count 241 10^3/uL (130-400); Red Blood Cell Count 3.96 10^6/uL (4.20-5.40); Red Cell Dist. Width 13.3 % (11.5-14.5); White Blood Cell Count 19.5 10^3/uL (4.8-10.8)
[2024-04-22] MEDS: ProAmatine 2.5 MG PO ×3 (08:13→17:16)
[2024-04-22] MEDS: CRESTOR 20 MG PO (08:13)
[2024-04-22] MEDS: NEURONTIN 800 MG PO ×2 (08:13→20:29)
[2024-04-22] MEDS: FLOMAX 0.4 MG PO (08:13)
[2024-04-22] MEDS: LANTUS 0.12 UNITS SC (08:14)
[2024-04-22 08:15] LABS: APTT 29.4 Sec (23.4-35.0); INR 1.16; PT 15.3 Sec (11.4-14.6)
[2024-04-22] MEDS: NOVOLOG FLEXPEN-LOW RESISTANCE 3 UNITS SC (08:15)
[2024-04-22 08:22] LABS: ALT (SGPT) 11 U/L (0-35); AST (SGOT) 19 U/L (14-36); Albumin 2.9 g/dl (3.5-5.0); Alkaline Phosphatase 88 U/L (38-126); Blood Urea Nitrogen 18 mg/dl (7-17); Calcium 8.5 mg/dl (8.4-10.2); Carbon Dioxide 18 mmol/L (22-30); Chloride 106 mmol/L (98-107); Estimated Creatinine Clearance 57 ml/min; Glucose 249 mg/dl (70-99); Lactic Acid 1.3 mmol/L (0.7-2.0); Potassium 3.9 mmol/L (3.5-5.1); Sodium 136 mmol/L (135-145); Total Bilirubin 0.7 mg/dl (0.2-1.3); Total Protein 5.9 g/dl (6.3-8.2); eGFR > 60.00
[2024-04-22] MEDS: ZOSYN 50 IV (08:37)
[2024-04-22 08:38] LABS: Troponin I 0.048 ng/ml
--- NOTE | 2024-04-22 09:08 | W.PN.URO.CBU ---
Today's Communication / Plan
-
await cxs plan per hospitalist
Assessment / Plan
-
stented yesrererday but pturia noted in renal pelvis so stented and left untreated other stone pt drained but febrile agree with expanded ab coverage await cxs
Diagnosis
-
Date of Service: April 22, 2024
-
Patient Diagnosis:
Post Op Day:
Patient Diagnosis:pain colic due to rt 4 mm stone prox rt ureteerof upper pole moiety in crossed renal ectopia now fever post manipulationof obstructing stone
Post Op Day:
Subjective
-
less pain but fever
Objective
-
Vital Signs
Temp Pulse Resp BP Pulse Ox
101.2 F H 130 16 86/43 97
04/22/24 07:50 04/22/24 08:13 04/22/24 07:50 04/22/24 08:13 04/22/24 07:50
Intake and Output
04/21/24 04/22/24 04/23/24
06:59 06:59 06:59
Intake Total 2160 / 2160
Output Total 200 / 200 1065 / 1065
Balance -200 / -200 1095 / 1095
Intake:
Oral fluids 960 / 960
IV fluids (Total) 1200 / 1200
Output:
Urine, Voided 200 / 200 1065 / 1065
Other:
How many times incontinent 2
SATURATED amount urine
Laboratory Results
04/22/24 07:49
04/22/24 07:49
Review of Systems
-
Constitutional: Fever and Night Sweats
: Dysuria and Frequency
Physical Exam
-
General - well developed, well nourished, no acute distress
Chest - clear bilaterally
Abdomen - soft, non-tender, positive bowel sounds, no CVAT, no incisional pain or distention
Genitalia - normal
Rectal - normal
Skin - warm & dry with no rash
Neuro - AOx3, no motor deficits
Extremities - no clubbing, no cyanosis, no edema
Incision - clean, dry
Dressing - clean, dry, intact
Care Review
Data Reviewed
Discussed with: Hospitalist and Nursing
--- NOTE | 2024-04-22 09:18 | CM ---
Alert awake oriented patient who lives with her Abhijit in a 2 story home with 4 steps to enter and 12 steps to bed/bathroom. She is independent in activates of daily living.She uses a cane .
Had [facility] in past . No SNF hx
Pharmacy [facility]
PCP Dr Johnson
PLAN Home with no needs
[2024-04-22 11:30] LABS: Glucose - Point of Care 215 mg/dl (70-99)
--- NOTE | 2024-04-22 12:10 | RR ---
A Rapid Response was called on this patient, please see Rapid Response form. Received pt. from geophysical drafter nurse. Given in report pt. had sustaining HR of 130s all night and given IV lopressor twice. Tech went into pt.'s room and got a BP 91/53.
This nurse went into the room to check on pt., pt. feeling very symptomatic complaining of lightheadedness and fatigue. Manual BP taken which was 86/49. Due to the presentation of symptoms, rapid response was called. Vitals taken, EKG taken and
shown sinus tach, sugar checked. MD notified and present at bedside. New orders placed. IV fluid bolus given, Midodrine ordered, and new antibiotics administered. Pt to stay on . Will continue to monitor pt. and keep MD notified on changes.
--- NOTE | 2024-04-22 12:19 | CON.ID ---
Consultation
-
Date/Time Consultation Requested: 04/22/24 11:45
Date/Time Consultation Performed: 04/22/24 12:19
Requesting Provider: Dr Wooten
Performing Provider: Dr Martel
Reason for Consultation: pyelonephritis, stone
Chief Complaint / Past History
Chief Complaint
Flank Pain, incontinence
History of Present Illness
Ms Pratt is a 63 year old female with history of cross-fused kidney with single ureter, renal stones, DM2 who presented here on 04/20 for R flank and groin pain. Then on 04/19 developed R lower back pain that eventually migrated to the anterior
groin. New dysuria and urinary incontinence noted. No fevers, chills, nausea, vomiting, diarrhea or hematuria.
Also 3 week history starting with about a week of cough, rhinorrhea; then the last two weeks just with an ongoing nonproductive cough.
Since arrival here she was initially afebrile now persistently febrile to 103.1, bp persistently soft, wbc on arrival 14, now 19.5, hgb 10.8, plt 241, L shift is noted, cr 0.8 on arrival, Na 135, a1c 7.2, lfts wnl, ua >100 wbc/hpf, covid and flu
screens negative, 04/21 underwent right lithotripsy, ureteral stent placement; no stone initially in bladder, no urine from the right ureter, stone was ensconced - stone broken into smaller pieces, pyuria noted and drained both through and around the
stent, 04/20 urine culture 100K mixed liliam. she was initially started on ceftriaxone, then when fevers noted broadened to zosyn. ID is consulted for assistance with management.
Past History
Additional Past Medical History:
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
DM-II
Hypertension / Orthostatic Hypotension
SVT (s/p ablation)
Pericardial Cyst
Nephrolithiasis
Lumbar DDD
Additional Past Surgical History:
Tubal Ligation
Gastric Sleeve
SVT Ablation
Lithotripsy
Lumbar Fusion
Allergy History:
No Known Allergies Allergy (Verified 04/20/24 11:47)
Medications Reviewed: Yes
Social History
Tobacco: Non-Smoker
Alcohol: None
Drug: None
Family History
Family History: Not Pertinent
Review of Systems
Review of Systems
General: Fever and Chills
All systems: All other systems were reviewed and were negative
Vital Signs
Temp Pulse Resp BP Pulse Ox
101.4 F H 134 16 98/53 97
04/22/24 11:43 04/22/24 11:43 04/22/24 11:43 04/22/24 11:43 04/22/24 11:43
Physical Exam
Physical Exam
Constitutional: No Acute Distress
Cardiovascular: Regular Rate and S1/S2; Negative Murmur or Rub
Pulmonary: Clear and Symmetric; Negative Wheezes, Rales or Rhonchi
Gastrointestinal: Soft, Non Tender, Non Distended and Normal Bowel Sounds
Genito-Urinary: Suprapubic Tenderness and CVA Tenderness
Skin: Warm and Dry; Negative Rash or Jaundice
Lab / Diagnostic Study Results
04/22/24 07:49
04/22/24 07:49
Abs Immat Gran (auto) 1.0 10^3/uL (0-0.05) H 04/22/24 07:49
Absolute Neuts (auto) 16.6 10^3/uL (1.4-6.5) H 04/22/24 07:49
Absolute Lymphs (auto) 0.5 10^3/uL (1.2-3.4) L 04/22/24 07:49
Absolute Monos (auto) 1.4 10^3/uL (0.1-0.6) H 04/22/24 07:49
Absolute Basos (auto) 0.1 10^3/uL (0-0.2) 04/22/24 07:49
Immature Gran % 5.0 % (0-0.5) H 04/22/24 07:49
Neutrophils % 85.1 % (42.2-75.2) H 04/22/24 07:49
Lymphocytes % 2.5 % (20.5-51.1) L 04/22/24 07:49
Monocytes % 7.0 % (1.7-9.3) 04/22/24 07:49
Eosinophils % 0.0 % (0-6) 04/22/24 07:49
Basophils % 0.4 % (0-2) 04/22/24 07:49
PT 15.3 Sec (11.4-14.6) H 04/22/24 07:49
INR 1.16 04/22/24 07:49
Lactic Acid 1.3 mmol/L (0.7-2.0) 04/22/24 07:49
Ur Squamous Epith Cells 0-2 /LPF (Few) 04/20/24 18:14
Microbiology Results
Micro:
04/20/24 18:14 Urine Culture - Final
Urine
04/21/24 07:54 Blood Culture - Preliminary
Blood/Venous No Growth in 24 hours- Final report to follow
04/20/24 16:29 Blood Culture - Preliminary
Blood/Venous No Growth in 24 hours- Final report to follow
04/20/24 11:53 Influenza Types A & B (ELEANOR) - Final
Nasal Swab Negative for Influenza A & B, NAAT
Negative results must be combined with clinical observations
and patient history.
Nucleic Acid Amplification test (NAAT)performed on the
[employer] platform.
Assessment / Plan
Sepsis
Pyelonephritis
cross-fused kidneys with single ureter
Renal Stones
- s/p lithotripsy of obstructing stone and stent placement
- would have been helpful to have done a culture of the purulent urine after the obstruction was removed in the OR
- 2/10 urine culture polymicrobial potentially contaminated
- repeat urine culture urgently today
- given persistent fevers, repeat blood cultures x2 today
- agree with zosyn - dosed for pseudomonas/esbl
- follow clinically
--- NOTE | 2024-04-22 12:26 | PTCARENOTE ---
Pt. received from nightshift on a heparin drip. PTT result received at 0700 AM with a result of 60.0. In chart, MD order to notify if PTT was less than 70. This nurse texted MD to notify. discontinued heparin drip and started pt. on Eliquis.
[2024-04-22] MEDS: NOVOLOG FLEXPEN-LOW RESISTANCE 2 UNITS SC (12:48)
[2024-04-22] MEDS: NOVOLOG FLEXPEN 4 UNITS SC ×2 (12:49→17:58)
[2024-04-22 13:05] LABS: Troponin I 0.037 ng/ml
[2024-04-22] MEDS: ZOSYN 100 IV ×2 (13:47→19:43)
[2024-04-22 14:14] LABS: TSH Reflex To Free T4 0.22 uIU/ml (0.47-4.68)
[2024-04-22 14:44] LABS: Free T4 1.58 ng/dl (0.78-2.19)
[2024-04-22 16:53] LABS: Glucose - Point of Care 148 mg/dl (70-99)
[2024-04-22] MEDS: NOVOLOG FLEXPEN-LOW RESISTANCE SC (16:58)
[2024-04-22 17:25] LABS: Troponin I 0.025 ng/ml
--- NOTE | 2024-04-22 18:14 | PTCARENOTE ---
Pt. repeatedly monitored throughout the shift with BP and temp. at 1630, pt's temp was 103.1 and BP 118/56. Tylenol given. Rechecked pt. at 1745 and temperature going down with the latest at 101.2. Pt's BP now 87/51. Midodrine dose given at 1715.
notified, no new orders place. Will monitor pt.
[2024-04-22] MEDS: NSS 500 IV (19:53)
--- NOTE | 2024-04-22 19:57 | PTCARENOTE ---
BP 76/48. Verified manually. Pt sleepy but arousable. Heart rate 120s. 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 NSS 500ml bolus hung. Will continue to monitor closely
--- NOTE | 2024-04-22 21:00 | PTCARENOTE ---
Bolus completed. BP 111/58
[2024-04-22 22:11] LABS: Glucose - Point of Care 217 mg/dl (70-99)
[2024-04-23] VITALS (7 sets, daily range): BP systolic 86–142; BP diastolic 53–83; PULSE 126; O2SAT 96
[2024-04-23] MEDS: ZOSYN 100 IV ×4 (01:07→19:48)
[2024-04-23] MEDS: NSS 1000 IV ×3 (01:07→18:21)
[2024-04-23 06:31] LABS: Hematocrit 34.1 % (37.0-47.0); Hemoglobin 11.2 g/dL (12.0-16.0); Mean Corp Hgb Conc. 32.8 g/dL (33.0-37.0); Mean Corpuscular Hgb 26.9 pg (27.0-31.0); Mean Platelet Volume 10.5 fL (7.4-10.4); Platelet Count 186 10^3/uL (130-400); Red Blood Cell Count 4.16 10^6/uL (4.20-5.40); Red Cell Dist. Width 13.7 % (11.5-14.5); White Blood Cell Count 13.9 10^3/uL (4.8-10.8)
[2024-04-23 06:33] LABS: Blood Urea Nitrogen 21 mg/dl (7-17); Calcium 8.2 mg/dl (8.4-10.2); Carbon Dioxide 19 mmol/L (22-30); Chloride 110 mmol/L (98-107); Estimated Creatinine Clearance 48 ml/min; Glucose 160 mg/dl (70-99); Potassium 3.7 mmol/L (3.5-5.1); Sodium 139 mmol/L (135-145)
[2024-04-23] MEDS: NOVOLOG FLEXPEN SC ×2 (07:30→08:10)
[2024-04-23] MEDS: NOVOLOG FLEXPEN-LOW RESISTANCE SC ×2 (07:30→08:10)
[2024-04-23 08:05] LABS: Glucose - Point of Care 316 mg/dl (70-99)
[2024-04-23] MEDS: CRESTOR 20 MG PO (08:08)
[2024-04-23] MEDS: TYLENOL 650 MG PO ×2 (08:08→17:07)
[2024-04-23] MEDS: NEURONTIN 800 MG PO ×2 (08:09→19:49)
[2024-04-23] MEDS: LANTUS 0.12 UNITS SC (08:09)
[2024-04-23] MEDS: FLOMAX 0.4 MG PO (08:09)
[2024-04-23] MEDS: ProAmatine 2.5 MG PO ×3 (08:10→17:08)
--- NOTE | 2024-04-23 08:12 | W.PN.URO.CBU ---
Today's Communication / Plan
-
AWAIT BLOOD AND URINE CXS NO NEW INTERVENTIONS
Assessment / Plan
-
stented AND WBC TRENDING SDOWN IS FEVER AWAIT CXS BUT CLINICALLY IMPROVING T[employer] ABS WHEN AVAIABKE BUT IF CONDOITUN WORSENS THEN REPEAT CT SCAN BUT OF NOW PT GETTING BETTER
Diagnosis
-
Date of Service: April 23, 2024
-
Patient Diagnosis:
Post Op Day:
Patient Diagnosis:
Post Op Day:
Patient Diagnosis:pain colic due to rt 4 mm stone prox rt ureteerof upper pole moiety in crossed renal ectopia now fever post manipulationof obstructing stone
Post Op Day: 2
Subjective
-
FEELING BETTER NO COLIC STILL FEVR
Objective
-
Vital Signs
Temp Pulse Resp BP Pulse Ox
101.9 F H 133 16 142/83 96
04/23/24 08:06 04/23/24 08:10 04/23/24 08:06 04/23/24 08:10 04/23/24 08:06
Intake and Output
04/22/24 04/23/24 04/24/24
06:59 06:59 06:59
Intake Total 2160 / 2160 1740 / 1740
Output Total 1065 / 1065 200 / 200
Balance 1095 / 1095 1540 / 1540
Intake:
Oral fluids 960 / 960 240 / 240
IV fluids (Total) 1200 / 1200 1500 / 1500
Output:
Urine, Voided 1065 / 1065
Straight cath output 200 / 200
Other:
Number of approximated MODERATE 2
amounts of urine
How many times incontinent 2 1
SATURATED amount urine
Laboratory Results
04/23/24 05:36
04/23/24 05:36
Review of Systems
-
Constitutional: Fever
: Frequency
Physical Exam
-
General - well developed, well nourished, no acute distress
Chest - clear bilaterally
Abdomen - soft, non-tender, positive bowel sounds, no CVAT, no incisional pain or distention
Genitalia - normal
Rectal - normal
Skin - warm & dry with no rash
Neuro - AOx3, no motor deficits
Extremities - no clubbing, no cyanosis, no edema
Incision - clean, dry
Dressing - clean, dry, intact
Care Review
Data Reviewed
Discussed with: Nursing and Family
[2024-04-23 08:39] LABS: % Basophils 0.6 % (0-2); % Eosinophils 0.4 % (0-6); % Lymphocytes 7.5 % (20.5-51.1); % Monocytes 5.5 % (1.7-9.3); Absolute Basophils 0.1 10^3/uL (0-0.2); Absolute Eosinophils 0.1 10^3/uL (0-0.7); Absolute Immature Granulocytes 0.1 10^3/uL (0-0.05); Absolute Monocytes 0.8 10^3/uL (0.1-0.6); Absolute Neutrophils 11.8 10^3/uL (1.4-6.5); Nucleated Red Blood Cells % 0 %
--- NOTE | 2024-04-23 09:33 | W.PN.ID1 ---
Date of Service
Date of Service: April 23, 2024
Today's Communication
- follow renal function and clinically
Assessment / Plan
Sepsis
Pyelonephritis
cross-fused kidneys with single ureter
Renal Stones
KATEY
- s/p lithotripsy of obstructing stone and stent placement
- would have been helpful to have done a culture of the purulent urine after the obstruction was removed in the OR
- 04/20 urine culture polymicrobial potentially contaminated - asked lab to ID the available isolates
- 04/22 urine culture prelim negative
- blood cultures x2 no growth to date
- agree with zosyn - dosed for pseudomonas/esbl
- follow renal function and clinically
Chief Complaint
-: Other (pyelonephritis)
Subjective / Review of Systems
fever curve may be improving - peaks less high and lowes are lower
BP now stable - improved
remains tachycardic
240 ccs of urine output recorded - note that patient was incontinent, not all urine output recorded
'I feel better'
less CVA tenderness
Vital Signs / Physical Exam
Vital Signs
Vital Signs
Temp Pulse Resp BP Pulse Ox
101.9 F H 133 16 142/83 96
04/23/24 08:06 04/23/24 08:10 04/23/24 08:06 04/23/24 08:10 04/23/24 08:06
Physical Exam
Constitutional: Acutely Ill
Cardiovascular: Regular Rate and S1/S2; Negative Murmur or Rub
Pulmonary: Clear and Symmetric; Negative Wheezes or Rales
Gastrointestinal: Soft, Non Tender, Non Distended and Normal Bowel Sounds
Genito-Urinary: Suprapubic Tenderness and CVA Tenderness
Skin: Warm and Dry; Negative Rash or Jaundice
Objective Data
Lab Data
Lab Results
04/23/24 05:36
02/13/25 05:36
PT 15.3 Sec (11.4-14.6) H 04/22/24 07:49
INR 1.16 04/22/24 07:49
APTT 29.4 Sec (23.4-35.0) 04/22/24 07:49
Estimated Creat Clear 48 ml/min 04/23/24 05:36
Lactic Acid 1.3 mmol/L (0.7-2.0) 04/22/24 07:49
Total Bilirubin 0.7 mg/dl (0.2-1.3) 04/22/24 07:49
AST 19 U/L (14-36) 04/22/24 07:49
ALT 11 U/L (0-35) 04/22/24 07:49
Alkaline Phosphatase 88 U/L (38-126) 04/22/24 07:49
Most recent labs reviewed.
Micro Results:
04/22/24 13:06 Urine Culture - Preliminary
Urine NO GROWTH
04/21/24 07:54 Blood Culture - Preliminary
Blood/Venous No Growth in 48 hours- Final report to follow
04/22/24 14:51 Blood Culture - Pending
Blood/Venous
04/20/24 16:29 Blood Culture - Preliminary
Blood/Venous No Growth in 48 hours- Final report to follow
04/22/24 13:49 Blood Culture - Pending
Blood/Venous
04/20/24 18:14 Urine Culture - Final
Urine
04/20/24 11:53 Influenza Types A & B (ELEANOR) - Final
Nasal Swab Negative for Influenza A & B, NAAT
Negative results must be combined with clinical observations
and patient history.
Nucleic Acid Amplification test (NAAT)performed on the
[employer] platform.
--- NOTE | 2024-04-23 10:20 | CM ---
Reviewed the chart notes and spoke with the patient at the bedside. Patient anticipates being discharged to home with no needs. CM continues to be available to patient/family and is monitoring medical plan for needs at discharge.
Plan: Discharge to home when medically stable. No anticipated needs identified at this time.
[2024-04-23 10:46] LABS: Glucose - Point of Care 181 mg/dl (70-99)
[2024-04-23] MEDS: NOVOLOG FLEXPEN-LOW RESISTANCE 1 UNITS SC ×2 (10:46→17:09)
[2024-04-23] MEDS: NOVOLOG FLEXPEN 4 UNITS SC (10:46)
[2024-04-23] MEDS: ROXICODONE 5 MG PO ×2 (10:46→18:20)
--- NOTE | 2024-04-23 13:45 | W.PN.HOSP.TC ---
Today's Communication/Plan
-
continue Zosyn
treat fevers
follow ID/urology recs
continue Midodrine
cap IVF after current bag
Assessment / Plan
Assessment / Plan
Assessment:
Rapid response 04/22 AM for symptomatic hypotension
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
Hydronephrosis secondary to the above
UTI secondary to the above
Sepsis secondary to the above (tachycardia, leukocytosis, UTI)
- pain control
- continue Zosyn. ID following.
- follow urine/blood cultures
- s/p stent/stone procedure 04/21
- Urology following
DM-II
- uncontrolled in setting of sepsis
- resume Lantus and Aspart now at home doses. continue SSI.
- A1C 7.2%
Hypertension / Hypotension
- Previously maintained on metoprolol for BP control and tachycardia. was resumed in hospital overnight 04/21 into 04/22 -> led to hypotension
- Now on midodrine TID - resume today as hypotensive
- Follow BP and adjust medications as needed.
- IVFs as above for sepsis.
Sinus tachycardia
- appropriate response to sepsis/fever
- monitor for changes in rhythm
Peripheral Neuropathy
- Stable. Continue current home dose of gabapentin.
History of SVT s/p Ablation (remote)
Lumbar DDD
History of Gastric Sleeve
- Stable. No acute issues / complaints.
DVT Prophylaxis: SCDs
Code Status: Full
Anticipated Discharge: > 48 hours
Subjective/Interval History
-
Date of Service: April 23, 2024
fevers over last 24 hours, overall improving into today
BP improved
Objective Data
-
Labs:
Laboratory Results
04/23/24
05:36
WBC 13.9 H
Hgb 11.2 L
Hct 34.1 L
Plt Count 186 D
Sodium 139
Potassium 3.7
Chloride 110 H
Carbon Dioxide 19 L
BUN 21 H
Creatinine 1.2 H
Glucose 160 H
Calcium 8.2 L
Vital Signs:
Vital Signs
Temp Pulse Resp BP Pulse Ox
98.3 F 124 16 106/63 97
04/23/24 11:12 04/23/24 11:12 04/23/24 11:12 04/23/24 13:43 04/23/24 11:12
I&O
04/22/24 04/23/24 04/24/24
06:59 06:59 06:59
Intake Total 2160 / 2160 1740 / 1740
Output Total 1065 / 1065 200 / 200
Balance 1095 / 1095 1540 / 1540
Physical Exam
-
General: No Apparent Distress
HEENT: Normocephalic and Atraumatic
Respiratory: Negative Wheezes
Cardiac: Regular Rhythm and S1/S2
GI: Soft and Nontender
Musculoskeletal: No Edema
Neuro: AO x 3
Psych: Calm
Data Reviewed
-
Total Time Spent with Patient (in minutes): 45
Labs: Labs Reviewed by me
--- NOTE | 2024-04-23 15:50 | PTCARENOTE ---
Patient afebrile however HR sustaining in 130's. Had briefly sat on commode after working with PT. Returned back to bed without issue. Patient reports feeling 'better/okay.' Covering provider made aware.
--- NOTE | 2024-04-23 16:45 | PN.CDI ---
CDI
- -
CDI:
Physician Documentation Request
Admit Date: 04/20/24 19:56
Dear Doctor Je,
Patient admitted with Sepsis secondary to UTI.
04/22 12:10 nursing note states 'This nurse went into the room to check on pt., pt. feeling very symptomatic complaining of lightheadedness and fatigue. Manual BP taken which was 86/49. Due to the presentation of symptoms, rapid response was
called.....IV fluid bolus given, Midodrine ordered,and new antibiotics administered
Later on same day nursing (19:57)'BP 76/48. Verified manually. Pt sleepy but arousable. Heart rate 120s. temp 100.6 House LENS MOUNTER notiifed. NSS 500ml bolus hung'
04/22 hospitalist note state 'Rapid response 12 AM for symptomatic hypotension'
Please clarify which of the following is the most likely etiology of the above symptoms and treatment rendered:
Septic shock
Hypotension only
Other
Use of terms such as suspected, likely, concern for, or probable (associated with a specific diagnosis that is being evaluated, monitored, or treated as if it exists) are acceptable and can be coded in the inpatient setting, when documented at the
time of discharge.
Thank you,
Alina Solis RN, BSN
CDI Specialist
tiger text
Please use your independent medical judgment in providing your response.
--- NOTE | 2024-04-23 16:55 | PN.CDI ---
CDI
- -
CDI:
Physician Documentation Request
Admit Date: 04/20/24 19:56
Dear Doctor Je,
Patient admitted with sepsis due to UTI
Troponin results
Laboratory Tests
04/22/24 04/22/24 04/22/24
07:49 12:24 16:43
Troponin I 0.048 H* 0.037 H* 0.025 D
Could you please provide a diagnosis that supports the above lab abnormalities and additional evaluation/monitoring:
Nonischemic myocardial injury
Other
Use of terms such as suspected, likely, concern for, or probable (associated with a specific diagnosis that is being evaluated, monitored, or treated as if it exists) are acceptable and can be coded in the inpatient setting, when documented at the
time of discharge.
Thank you,
Alina Solis RN, BSN
CDI Specialist
tiger text
Please use your independent medical judgment in providing your response.
[2024-04-23 17:04] LABS: Glucose - Point of Care 169 mg/dl (70-99)
[2024-04-23] MEDS: NOVOLOG FLEXPEN 5 UNITS SC (17:09)
[2024-04-23 21:47] LABS: Glucose - Point of Care 129 mg/dl (70-99)
[2024-04-24] VITALS (8 sets, daily range): BP systolic 100–129; BP diastolic 57–78; PULSE 122–125; O2SAT 97
[2024-04-24] MEDS: ROXICODONE 5 MG PO (02:27)
[2024-04-24] MEDS: ZOSYN 100 IV ×4 (02:27→19:51)
[2024-04-24 06:28] LABS: % Basophils 0.4 % (0-2); % Eosinophils 2.5 % (0-6); % Immature Granulocytes 0.8 % (0-0.5); % Lymphocytes 11.6 % (20.5-51.1); % Monocytes 7.3 % (1.7-9.3); % Neutrophils 77.4 % (42.2-75.2); Absolute Eosinophils 0.3 10^3/uL (0-0.7); Absolute Immature Granulocytes 0.1 10^3/uL (0-0.05); Absolute Lymphocytes 1.2 10^3/uL (1.2-3.4); Absolute Monocytes 0.8 10^3/uL (0.1-0.6); Absolute Neutrophils 8.2 10^3/uL (1.4-6.5); Hematocrit 29.5 % (37.0-47.0); Hemoglobin 9.5 g/dL (12.0-16.0); Mean Corp Hgb Conc. 32.2 g/dL (33.0-37.0); Mean Corpuscular Hgb 26.8 pg (27.0-31.0); Mean Corpuscular Volume 83.3 fL (81.0-99.0); Nucleated Red Blood Cells % 0 %; Platelet Count 186 10^3/uL (130-400); Red Blood Cell Count 3.54 10^6/uL (4.20-5.40); White Blood Cell Count 10.6 10^3/uL (4.8-10.8)
[2024-04-24 06:53] LABS: Blood Urea Nitrogen 14 mg/dl (7-17); Calcium 8.1 mg/dl (8.4-10.2); Carbon Dioxide 21 mmol/L (22-30); Chloride 111 mmol/L (98-107); Estimated Creatinine Clearance 64 ml/min; Glucose 119 mg/dl (70-99); Potassium 3.4 mmol/L (3.5-5.1); Sodium 140 mmol/L (135-145); eGFR > 60.00
[2024-04-24 07:42] LABS: Glucose - Point of Care 94 mg/dl (70-99)
--- NOTE | 2024-04-24 08:07 | W.PN.HOSP.TC ---
Today's Communication/Plan
-
contoinue Abx per ID
Assessment / Plan
Assessment / Plan
Assessment:
Rapid response 04/22 AM for symptomatic hypotension
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
Hydronephrosis secondary to the above
UTI secondary to the above
Sepsis secondary to the above (tachycardia, leukocytosis, UTI) with hypotension (no evidence of shock, lactate <4 and never on vasopressors)
- pain control
- continue Zosyn. ID following.
- follow urine/blood cultures: so far no growth. Noted no urine collected in OR.
- s/p stent/stone procedure 04/21
- Urology following
DM-II
- uncontrolled in setting of sepsis
- continue Lantus and Aspart now at home doses. continue SSI.
- A1C 7.2%
Hypertension / Hypotension
- Previously maintained on metoprolol for BP control and tachycardia. was resumed in hospital overnight 04/21 into 04/22 -> led to hypotension
- Now on midodrine TID per PCP
- Follow BP and adjust medications as needed.
- IVFs as above for sepsis.
Sinus tachycardia
- appropriate response to sepsis/fever
- monitor for changes in rhythm
- TSH low, FT4 normal - repeat TFTs in 4-6 weeks
Nonischemic myocardial injury from sinus tachycardia and sepsis
Peripheral Neuropathy
- Stable. Continue current home dose of gabapentin.
History of SVT s/p Ablation (remote)
Lumbar DDD
History of Gastric Sleeve
- Stable. No acute issues / complaints.
DVT Prophylaxis: SCDs
Code Status: Full
Anticipated Discharge: 24 - 48 hours
Subjective/Interval History
-
Date of Service: April 24, 2024
Feels much better today
no complaints at present
Objective Data
-
Labs:
Laboratory Results
04/24/24
05:57
WBC 10.6
Hgb 9.5 L
Hct 29.5 L
Plt Count 186
Sodium 140
Potassium 3.4 L
Chloride 111 H
Carbon Dioxide 21 L
BUN 14
Creatinine 0.9
Glucose 119 H
Calcium 8.1 L
Vital Signs:
Vital Signs
Temp Pulse Resp BP Pulse Ox
99.0 F 130 17 129/78 99
04/24/24 03:40 04/24/24 03:40 04/24/24 03:40 04/24/24 03:40 04/24/24 03:40
I&O
04/23/24 04/24/24 04/25/24
06:59 06:59 06:59
Intake Total 1740 / 1740 1360 / 1360
Output Total 200 / 200
Balance 1540 / 1540 1360 / 1360
Physical Exam
-
General: No Apparent Distress
HEENT: Normocephalic and Atraumatic
Respiratory: Negative Wheezes
Cardiac: Regular Rhythm and S1/S2
GI: Soft and Nontender
Musculoskeletal: No Edema
Neuro: AO x 3
Psych: Calm
Data Reviewed
-
Total Time Spent with Patient (in minutes): 41
Labs: Labs Reviewed by me
[2024-04-24] MEDS: KCL 40 MEQ PO (09:09)
[2024-04-24] MEDS: NEURONTIN 800 MG PO ×2 (09:09→19:51)
[2024-04-24] MEDS: FLOMAX 0.4 MG PO (09:10)
[2024-04-24] MEDS: ProAmatine 2.5 MG PO ×3 (09:10→17:52)
[2024-04-24] MEDS: CRESTOR 20 MG PO (09:11)
[2024-04-24] MEDS: NOVOLOG FLEXPEN 5 UNITS SC ×2 (09:12→13:00)
[2024-04-24] MEDS: NOVOLOG FLEXPEN-LOW RESISTANCE SC ×2 (09:12→17:49)
[2024-04-24] MEDS: LANTUS 0.18 UNITS SC (09:13)
--- NOTE | 2024-04-24 10:58 | W.PN.ID1 ---
Date of Service
Date of Service: April 24, 2024
Today's Communication
- c/w with zosyn today tomorrow can transition to levofloxacin 750 mg po qday for a 10 day total course 04/22-05/01
- ID service will no longer actively follow this patient please recall for further questions
Assessment / Plan
Pyelonephritis
cross-fused kidneys with single ureter
Renal Stones
KATEY
- s/p lithotripsy of obstructing stone and stent placement
- 04/20 urine culture polymicrobial potentially contaminated - asked lab to ID the available isolates
- 04/22 urine culture prelim negative
- blood cultures x2 on 04/20 and 04/22 no growth to date
- qtc 466
- c/w with zosyn today tomorrow can transition to levofloxacin 750 mg po qday for a 10 day total course 04/22-05/01
- ID service will no longer actively follow this patient please recall for further questions
Chief Complaint
-: Other (pyelonephritis)
Subjective / Review of Systems
fever resolved
bp stable on scheduled midodrine
'I feel better'
Vital Signs / Physical Exam
Vital Signs
Vital Signs
Temp Pulse Resp BP Pulse Ox
98.8 F 125 17 102/68 97
04/24/24 07:10 04/24/24 07:10 04/24/24 07:10 04/24/24 09:10 04/24/24 07:10
Physical Exam
Constitutional: No Acute Distress
Cardiovascular: Regular Rate and S1/S2; Negative Murmur or Rub
Pulmonary: Clear and Symmetric; Negative Wheezes or Rales
Gastrointestinal: Soft, Non Tender, Non Distended and Normal Bowel Sounds
Genito-Urinary: Negative Suprapubic Tenderness or CVA Tenderness
Skin: Warm and Dry; Negative Rash or Jaundice
Objective Data
Lab Data
Lab Results
04/24/24 05:57
04/24/24 05:57
PT 15.3 Sec (11.4-14.6) H 04/22/24 07:49
INR 1.16 04/22/24 07:49
APTT 29.4 Sec (23.4-35.0) 04/22/24 07:49
Estimated Creat Clear 64 ml/min 04/24/24 05:57
Lactic Acid 1.3 mmol/L (0.7-2.0) 04/22/24 07:49
Total Bilirubin 0.7 mg/dl (0.2-1.3) 04/22/24 07:49
AST 19 U/L (14-36) 04/22/24 07:49
ALT 11 U/L (0-35) 04/22/24 07:49
Alkaline Phosphatase 88 U/L (38-126) 04/22/24 07:49
Most recent labs reviewed.
Micro Results:
04/20/24 18:14 Urine Culture - Preliminary
Urine Gram negative bacilli
Coagulase neg. staphylococcus
Enterococcus species
04/22/24 13:06 Urine Culture - Final
Urine NO GROWTH
04/21/24 07:54 Blood Culture - Preliminary
Blood/Venous No Growth in 72 hours- Final report to follow
04/20/24 16:29 Blood Culture - Preliminary
Blood/Venous No Growth in 72 hours- Final report to follow
04/22/24 14:51 Blood Culture - Preliminary
Blood/Venous No Growth in 24 hours- Final report to follow
04/22/24 13:49 Blood Culture - Preliminary
Blood/Venous No Growth in 24 hours- Final report to follow
04/20/24 11:53 Influenza Types A & B (ELEANOR) - Final
Nasal Swab Negative for Influenza A & B, NAAT
Negative results must be combined with clinical observations
and patient history.
Nucleic Acid Amplification test (NAAT)performed on the
[employer] platform.
Care Review
Plan reviewed with: Physician (Dr Je lan)
--- NOTE | 2024-04-24 11:11 | CM ---
Chart reviewed for d/c planning. Care ongoing at this time.
Pt cont IV abx
Therapy recommending HH at d/c. CM will confirm w/ pt if she is interested in this at d/c
Plan: Home. recommended
[2024-04-24 11:53] LABS: Glucose - Point of Care 191 mg/dl (70-99)
[2024-04-24] MEDS: NOVOLOG FLEXPEN-LOW RESISTANCE 1 UNITS SC (13:01)
--- NOTE | 2024-04-24 13:02 | W.PN.URO.CBU ---
Today's Communication / Plan
-
ok for d/c once ok by hos;[piatost
Assessment / Plan
-
stented decrease wbc cxs neg suggest d/c when stable per ghopsitalist will see as outptient to plan second stage of stone removal
Diagnosis
-
Date of Service: April 24, 2024
-
Patient Diagnosis:
Post Op Day:
Patient Diagnosis:
Post Op Day:
Patient Diagnosis:
Post Op Day:
Patient Diagnosis:pain colic due to rt 4 mm stone prox rt ureteerof upper pole moiety in crossed renal ectopia now fever post manipulationof obstructing stone
Post Op Day: 2
Subjective
-
much better
Objective
-
Vital Signs
Temp Pulse Resp BP Pulse Ox
98.8 F 125 17 105/57 97
04/24/24 07:10 04/24/24 07:10 04/24/24 07:10 04/24/24 11:26 04/24/24 11:06
Intake and Output
04/23/24 04/24/24 04/25/24
06:59 06:59 06:59
Intake Total 1740 / 1740 1360 / 1360
Output Total 200 / 200
Balance 1540 / 1540 1360 / 1360
Intake:
Oral fluids 240 / 240 360 / 360
IV fluids (Total) 1500 / 1500 1000 / 1000
Output:
Straight cath output 200 / 200
Other:
Number of approximated MODERATE 2 1
amounts of urine
How many times incontinent 1
MODERATE amount urine
How many times incontinent 1
SATURATED amount urine
Laboratory Results
04/24/24 05:57
04/24/24 05:57
Review of Systems
-
: Frequency
Physical Exam
-
General - well developed, well nourished, no acute distress
Chest - clear bilaterally
Abdomen - soft, non-tender, positive bowel sounds, no CVAT, no incisional pain or distention
Genitalia - normal
Rectal - normal
Skin - warm & dry with no rash
Neuro - AOx3, no motor deficits
Extremities - no clubbing, no cyanosis, no edema
Incision - clean, dry
Dressing - clean, dry, intact
[2024-04-24 17:14] LABS: Glucose - Point of Care 83 mg/dl (70-99)
[2024-04-24] MEDS: NOVOLOG FLEXPEN SC (17:48)
[2024-04-24] MEDS: TYLENOL 650 MG PO (19:51)
[2024-04-24 21:31] LABS: Glucose - Point of Care 145 mg/dl (70-99)
[2024-04-25] MEDS: ZOSYN 100 IV ×2 (02:54→10:24)
[2024-04-25 03:45] VITALS: BP 121/68
[2024-04-25 07:30] VITALS: BP 144/84
[2024-04-25 07:41] LABS: Hematocrit 34.5 % (37.0-47.0); Hemoglobin 11.2 g/dL (12.0-16.0); Mean Corp Hgb Conc. 32.5 g/dL (33.0-37.0); Mean Corpuscular Hgb 27.1 pg (27.0-31.0); Mean Corpuscular Volume 83.3 fL (81.0-99.0); Mean Platelet Volume 11.3 fL (7.4-10.4); Platelet Count 180 10^3/uL (130-400); Red Blood Cell Count 4.14 10^6/uL (4.20-5.40); Red Cell Dist. Width 14.1 % (11.5-14.5); White Blood Cell Count 9.6 10^3/uL (4.8-10.8)
[2024-04-25 08:02] LABS: Glucose - Point of Care 178 mg/dl (70-99)
[2024-04-25 08:08] LABS: Blood Urea Nitrogen 11 mg/dl (7-17); Calcium 8.5 mg/dl (8.4-10.2); Carbon Dioxide 22 mmol/L (22-30); Chloride 107 mmol/L (98-107); Estimated Creatinine Clearance 72 ml/min; Glucose 176 mg/dl (70-99); Potassium 3.8 mmol/L (3.5-5.1); Sodium 139 mmol/L (135-145); eGFR > 60.00
[2024-04-25] MEDS: NEURONTIN 800 MG PO ×2 (10:24→20:18)
[2024-04-25] MEDS: NOVOLOG FLEXPEN-LOW RESISTANCE 1 UNITS SC ×2 (10:26→13:26)
[2024-04-25] MEDS: CRESTOR 20 MG PO (10:26)
[2024-04-25] MEDS: FLOMAX 0.4 MG PO (10:26)
[2024-04-25] MEDS: LANTUS 0.18 UNITS SC (10:27)
[2024-04-25] MEDS: NOVOLOG FLEXPEN 5 UNITS SC ×3 (10:27→17:13)
[2024-04-25] MEDS: ProAmatine PO (10:28)
[2024-04-25] MEDS: TYLENOL 650 MG PO ×2 (10:30→23:42)
[2024-04-25] MEDS: ROXICODONE 5 MG PO ×2 (10:30→20:40)
--- NOTE | 2024-04-25 10:41 | W.PN.URO.CBU ---
Today's Communication / Plan
-
no d/c
Assessment / Plan
-
stented decrease wbc but fever last pm after 2 days of nl temp wbc nl will check cxs but if reurrent fever and targeted iv abs fail then repeat ct scan
Diagnosis
-
Date of Service: April 25, 2024
-
Patient Diagnosis:
Post Op Day:
Patient Diagnosis:
Post Op Day:
Patient Diagnosis:
Post Op Day:
Patient Diagnosis:
Post Op Day:
Patient Diagnosis:pain colic due to rt 4 mm stone prox rt ureteerof upper pole moiety in crossed renal ectopia now fever post manipulationof obstructing stone
Post Op Day: 2
Subjective
-
was doing well then fevbr x 1 last pm 102 fevr no colic
Objective
-
Vital Signs
Temp Pulse Resp BP Pulse Ox
99.1 F 104 18 144/84 99
04/25/24 07:30 04/25/24 07:30 04/25/24 07:30 04/25/24 07:30 04/25/24 07:30
Intake and Output
04/24/24 04/25/24 04/26/24
06:59 06:59 06:59
Intake Total 1360 / 1360 1860 / 1860
Balance 1360 / 1360 1860 / 1860
Intake:
Oral fluids 360 / 360 1660 / 1660
IV fluids (Total) 1000 / 1000
IV piggybacks 200 / 200
Other:
Number of approximated MODERATE 1 1
amounts of urine
Number of approximated LARGE 1
amounts of urine
How many times incontinent 1
MODERATE amount urine
How many times incontinent 3
SATURATED amount urine
Laboratory Results
04/25/24 06:51
04/25/24 06:51
Review of Systems
-
Constitutional: Fever and Chills
Physical Exam
-
General - well developed, well nourished, no acute distress
Chest - clear bilaterally
Abdomen - soft, non-tender, positive bowel sounds, no CVAT, no incisional pain or distention
Genitalia - normal
Rectal - normal
Skin - warm & dry with no rash
Neuro - AOx3, no motor deficits
Extremities - no clubbing, no cyanosis, no edema
Incision - clean, dry
Dressing - clean, dry, intact
Care Review
Data Reviewed
Discussed with: Hospitalist
[2024-04-25 11:16] VITALS: BP 125/72
--- NOTE | 2024-04-25 11:30 | W.PN.HOSP.TC ---
Today's Communication/Plan
-
possible fungemia; repeat cultures x 2 then start Micafungin
continue Zosyn
follow ID and Urology recs
if febrile further into tomorrow; repeat CT
Assessment / Plan
Assessment / Plan
Assessment:
Rapid response 04/22 AM for symptomatic hypotension
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
Hydronephrosis secondary to the above
UTI secondary to the above
Sepsis secondary to the above (tachycardia, leukocytosis, UTI) with hypotension (no evidence of shock, lactate <4 and never on vasopressors)
- s/p stent/stone procedure 04/21
- pain control
- continue Zosyn and await urine cultures
- 2nd set of blood cultures, 1/2 sets with budding yeast
- repeat bcx x 2 today now
- start Micafungin
- ID/Urology following
- if ongoing fevers tomorrow; repeat CT
DM-II
- uncontrolled in setting of sepsis
- continue Lantus and Aspart now at home doses. continue SSI.
- A1C 7.2%
Hypertension / Hypotension
- Previously maintained on metoprolol for BP control and tachycardia. was resumed in hospital overnight 04/21 into 04/22 -> led to hypotension
- Now on midodrine TID per PCP
- Follow BP and adjust medications as needed.
- IVFs as above for sepsis.
Sinus tachycardia
- appropriate response to sepsis/fever
- monitor for changes in rhythm
- TSH low, FT4 normal - repeat TFTs in 4-6 weeks
Nonischemic myocardial injury from sinus tachycardia and sepsis
Peripheral Neuropathy
- Stable. Continue current home dose of gabapentin.
History of SVT s/p Ablation (remote)
Lumbar DDD
History of Gastric Sleeve
- Stable. No acute issues / complaints.
DVT Prophylaxis: SCDs
Code Status: Full
Anticipated Discharge: > 48 hours
Subjective/Interval History
-
Date of Service: April 25, 2024
Tmax 102 overnight
this AM with Bcx with fungal growth
currently asymptomatic
Objective Data
-
Labs:
Laboratory Results
04/25/24
06:51
WBC 9.6
Hgb 11.2 L
Hct 34.5 L
Plt Count 180
Sodium 139
Potassium 3.8
Chloride 107
Carbon Dioxide 22
BUN 11
Creatinine 0.8
Glucose 176 H
Calcium 8.5
Vital Signs:
Vital Signs
Temp Pulse Resp BP Pulse Ox
99.3 F 114 18 125/72 97
04/25/24 11:16 04/25/24 11:16 04/25/24 11:16 04/25/24 11:16 04/25/24 11:16
I&O
04/24/24 04/25/24 04/26/24
06:59 06:59 06:59
Intake Total 1360 / 1360 1859
Balance 1360 / 1360 1859
Physical Exam
-
General: No Apparent Distress
HEENT: Normocephalic and Atraumatic
Respiratory: Negative Wheezes
Cardiac: Regular Rhythm and S1/S2
GI: Soft and Nontender
Musculoskeletal: No Edema
Neuro: AO x 3
Hematologic / Lymphatic: No Lymphadenopathy
Psych: Calm
Data Reviewed
-
Total Time Spent with Patient (in minutes): 44
Labs: Labs Reviewed by me
[2024-04-25 11:59] LABS: Glucose - Point of Care 193 mg/dl (70-99)
[2024-04-25] MEDS: MYCAMINE 105 MG IV (12:02)
[2024-04-25] MEDS: ProAmatine 2.5 MG PO ×2 (12:03→17:12)
--- NOTE | 2024-04-25 13:22 | W.PN.ID1 ---
Date of Service
Date of Service: April 25, 2024
Today's Communication
Continue antibiotics. See below�
Assessment / Plan
Pyelonephritis
cross-fused kidneys with single ureter
Renal Stones
KATEY
Fungemia
Recommendations:
- s/p lithotripsy of obstructing stone and stent placement (04/21/24)
- 04/20 urine culture polymicrobial potentially contaminated - workup reveals E. coli, staph epi, Leuconostoc and yeast
- 04/22 urine culture negative
- blood cultures x2 on 04/20 revealed no growth, but 04/22 blood culture now reveals budding yeast
- qtc 466
- Transition to levofloxacin 750 mg po qday for a 10 day total course (04/22 to 05/01)
- Patient has been started on micafungin. Blood cultures have been obtained before initiation of antifungal therapy.
Continue with micafungin. Follow pending repeat cultures.
Monitor white count and temperature curve.
Chief Complaint
-: Bacteremia and Other (pyelonephritis)
Subjective / Review of Systems
Patient seen and examined. Admits to fever overnight. Some right lower quadrant/groin discomfort.
Vital Signs / Physical Exam
Vital Signs
Vital Signs
Temp Pulse Resp BP Pulse Ox
99.3 F 114 18 125/72 97
04/25/24 11:16 04/25/24 11:16 04/25/24 11:16 04/25/24 11:16 04/25/24 11:16
Physical Exam
Constitutional: No Acute Distress, Comfortable and Non-toxic
Cardiovascular: S1/S2; Negative S3/S4 or Murmur
Pulmonary: Non Labored
Gastrointestinal: Soft, Non Tender and Non Distended
Genito-Urinary: Negative CVA Tenderness
Neurological: Awake and Alert
Psychological: Calm
Objective Data
Lab Data
Lab Results
04/25/24 06:51
04/25/24 06:51
PT 15.3 Sec (11.4-14.6) H 04/22/24 07:49
INR 1.16 04/22/24 07:49
APTT 29.4 Sec (23.4-35.0) 04/22/24 07:49
Estimated Creat Clear 72 ml/min 04/25/24 06:51
Lactic Acid 1.3 mmol/L (0.7-2.0) 04/22/24 07:49
Total Bilirubin 0.7 mg/dl (0.2-1.3) 04/22/24 07:49
AST 19 U/L (14-36) 04/22/24 07:49
ALT 11 U/L (0-35) 04/22/24 07:49
Alkaline Phosphatase 88 U/L (38-126) 04/22/24 07:49
Most recent labs reviewed.
Micro Results:
04/25/24 11:40 Blood Culture - Pending
Blood/Venous
04/20/24 18:14 Urine Culture - Final
Urine Escherichia coli
Staphylococcus epidermidis
Leuconostoc
Yeast
04/25/24 10:40 Blood Culture - Pending
Blood/Venous
04/21/24 07:54 Blood Culture - Preliminary
Blood/Venous No Growth in 4 days- Final report to follow
04/22/24 14:51 Blood Culture - Preliminary
Blood/Venous Positive culture in progress
Gram Stain - Budding yeast
04/20/24 16:29 Blood Culture - Preliminary
Blood/Venous No Growth in 4 days- Final report to follow
04/22/24 13:49 Blood Culture - Preliminary
Blood/Venous No Growth in 48 hours- Final report to follow
04/22/24 13:06 Urine Culture - Final
Urine NO GROWTH
04/20/24 11:53 Influenza Types A & B (ELEANOR) - Final
Nasal Swab Negative for Influenza A & B, NAAT
Negative results must be combined with clinical observations
and patient history.
Nucleic Acid Amplification test (NAAT)performed on the
[employer] platform.
Care Review
Plan reviewed with: Physician (Hospitalist)
[2024-04-25] MEDS: LEVAQUIN 750 MG PO (14:55)
[2024-04-25 15:00] VITALS: BP 124/70
[2024-04-25] MEDS: NOVOLOG FLEXPEN-LOW RESISTANCE SC (17:12)
[2024-04-25 17:13] LABS: Glucose - Point of Care 129 mg/dl (70-99)
[2024-04-25 19:00] VITALS: BP 132/75
[2024-04-25 21:26] LABS: Glucose - Point of Care 109 mg/dl (70-99)
[2024-04-25 23:00] VITALS: BP 108/62
[2024-04-26 03:00] VITALS: BP 99/62
[2024-04-26 07:15] LABS: Hematocrit 27.2 % (37.0-47.0); Hemoglobin 8.8 g/dL (12.0-16.0); Mean Corp Hgb Conc. 32.4 g/dL (33.0-37.0); Mean Corpuscular Hgb 26.9 pg (27.0-31.0); Mean Corpuscular Volume 83.2 fL (81.0-99.0); Platelet Count 182 10^3/uL (130-400); Red Blood Cell Count 3.27 10^6/uL (4.20-5.40); Red Cell Dist. Width 13.9 % (11.5-14.5); White Blood Cell Count 8.9 10^3/uL (4.8-10.8)
[2024-04-26 07:17] VITALS: BP 112/68
[2024-04-26 07:36] LABS: Blood Urea Nitrogen 9 mg/dl (7-17); Calcium 7.9 mg/dl (8.4-10.2); Carbon Dioxide 24 mmol/L (22-30); Chloride 107 mmol/L (98-107); Estimated Creatinine Clearance 82 ml/min; Glucose 136 mg/dl (70-99); Potassium 3.4 mmol/L (3.5-5.1); Sodium 138 mmol/L (135-145); eGFR > 60.00
[2024-04-26 07:39] LABS: Glucose - Point of Care 155 mg/dl (70-99)
[2024-04-26 08:10] LABS: Iron < 20 ug/dl (37-170)
[2024-04-26 08:15] LABS: Total Iron Binding Capacity 145 ug/dl (265-497)
--- NOTE | 2024-04-26 08:28 | W.PN.HOSP.TC ---
Today's Communication/Plan
-
continue Levaquin, continue Micafungin, follow cultures
repeat CT today
Assessment / Plan
Assessment / Plan
Assessment:
Rapid response 04/22 AM for symptomatic hypotension
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
Hydronephrosis secondary to the above
UTI secondary to the above
Sepsis secondary to the above (tachycardia, leukocytosis, UTI) with hypotension (no evidence of shock, lactate <4 and never on vasopressors)
- s/p stent/stone procedure 04/21
- pain control
- Urine culture with multi-drug resistant E. Coli, Staph epi - continue Levaquin through 05/01 per ID
- 2nd set of blood cultures, 1/2 sets with budding yeast
- repeat bcx pending
- continue Micafungin
- ID/Urology following
- repeat CT with ongoing fevers; d/w Urology
DM-II
- uncontrolled in setting of sepsis
- continue Lantus and Aspart now at home doses. continue SSI.
- A1C 7.2%
Hypertension / Hypotension
- Previously maintained on metoprolol for BP control and tachycardia. was resumed in hospital overnight 04/21 into 04/22 -> led to hypotension
- Now on midodrine TID per PCP
- Follow BP and adjust medications as needed.
- IVFs as above for sepsis.
Sinus tachycardia
- appropriate response to sepsis/fever
- monitor for changes in rhythm
- TSH low, FT4 normal - repeat TFTs in 4-6 weeks
Nonischemic myocardial injury from sinus tachycardia and sepsis
Peripheral Neuropathy
- Stable. Continue current home dose of gabapentin.
History of SVT s/p Ablation (remote)
Lumbar DDD
History of Gastric Sleeve
- Stable. No acute issues / complaints.
Hypokalemia - replete prn
Dilutional anemia
- repeat CBC today as likely lab error with 3 gm drop in labs. no signs of active bleeding
DVT Prophylaxis: SCDs
Code Status: Full
Anticipated Discharge: > 48 hours
Subjective/Interval History
-
Date of Service: April 26, 2024
recurrent fever overnight
this AM feels well
no complaints presently
Objective Data
-
Labs:
Laboratory Results
04/26/24 04/26/24
05:46 12:00
WBC 8.9 Pending
Hgb 8.8 L D Pending
Hct 27.2 L Pending
Plt Count 182 Pending
Sodium 138
Potassium 3.4 L
Chloride 107
Carbon Dioxide 24
BUN 9
Creatinine 0.7
Glucose 136 H
Calcium 7.9 L
Vital Signs:
Vital Signs
Temp Pulse Resp BP Pulse Ox
98.0 F 97 17 112/68 97
04/26/24 07:17 04/26/24 07:17 04/26/24 07:17 04/26/24 07:17 04/26/24 07:17
I&O
04/25/24 04/26/24 04/27/24
06:59 06:59 06:59
Intake Total 1859 840 / 840
Balance 1859 840 / 840
Physical Exam
-
General: No Apparent Distress
HEENT: Normocephalic and Atraumatic
Respiratory: Negative Wheezes
Cardiac: Regular Rhythm and S1/S2
GI: Soft and Nontender
Genito-urinary: No Costovertebral Tender
Musculoskeletal: No Edema
Neuro: AO x 3
Hematologic / Lymphatic: No Lymphadenopathy
Psych: Calm
Data Reviewed
-
Total Time Spent with Patient (in minutes): 44
Labs: Labs Reviewed by me
[2024-04-26] MEDS: NOVOLOG FLEXPEN 5 UNITS SC ×3 (09:29→17:29)
[2024-04-26] MEDS: LANTUS 0.18 UNITS SC (09:30)
[2024-04-26] MEDS: NOVOLOG FLEXPEN-LOW RESISTANCE 1 UNITS SC (09:30)
[2024-04-26] MEDS: ProAmatine 2.5 MG PO ×3 (09:31→17:32)
[2024-04-26] MEDS: NEURONTIN 800 MG PO ×2 (09:31→19:35)
[2024-04-26] MEDS: CRESTOR 20 MG PO (09:31)
[2024-04-26] MEDS: FLOMAX 0.4 MG PO (09:31)
[2024-04-26] MEDS: LEVAQUIN 750 MG PO (09:31)
[2024-04-26] MEDS: KCL 40 MEQ PO (09:31)
[2024-04-26 10:14] LABS: Folate 13.6 ng/ml (2.76-20); Vitamin B12 > 1000 pg/ml (239-931)
[2024-04-26 11:09] VITALS: BP 124/76
[2024-04-26 11:16] LABS: Glucose - Point of Care 206 mg/dl (70-99)
[2024-04-26] MEDS: MYCAMINE 105 MG IV (11:34)
--- NOTE | 2024-04-26 12:11 | W.PN.UPDATE ---
Update Note
Progress Note Update
ct scan reveals correct anatomical placement stent,
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
of pyuria and / or sole
--- NOTE | 2024-04-26 12:39 | W.PN.ID1 ---
Date of Service
Date of Service: April 26, 2024
Today's Communication
Continue antibiotics.
Assessment / Plan
Pyelonephritis
cross-fused kidneys with single ureter
Renal Stones
KATEY
Fungemia
Recommendations:
- s/p lithotripsy of obstructing stone and stent placement (04/21/24)
- 04/20 urine culture polymicrobial (potentially contaminated( - workup reveals E. coli, staph epi, Leuconostoc and yeast
- 04/22 urine culture negative
- blood cultures x2 on 04/20 revealed no growth, but 04/22 blood culture reveals budding yeast
- qtc 466
- Continue levofloxacin 750 mg po qday for a 10 day total course (04/22 to 05/01)
- Continue micafungin. Rpt blood cultures obtained before initiation of antifungal therapy.
Monitor white count and temperature curve.
����������������������������������������������������������
Chief Complaint
-: Bacteremia (Fungemia) and Other (pyelonephritis)
Subjective / Review of Systems
Patient seen and examined. Reports some fevers and chills over night, but today feels well. Denies pain. Tmax 101.2
Vital Signs / Physical Exam
Vital Signs
Vital Signs
Temp Pulse Resp BP Pulse Ox
98.1 F 101 17 124/76 98
04/26/24 11:09 04/26/24 11:09 04/26/24 11:09 04/26/24 11:09 04/26/24 11:09
Physical Exam
Constitutional: No Acute Distress, Comfortable and Non-toxic
Eyes: Sclera Anicteric
Pulmonary: Non Labored
Gastrointestinal: Non Distended
Neurological: Awake and Alert
Psychological: Calm
Objective Data
Lab Data
Lab Results
04/26/24 05:46
PT 15.3 Sec (11.4-14.6) H 04/22/24 07:49
INR 1.16 04/22/24 07:49
APTT 29.4 Sec (23.4-35.0) 04/22/24 07:49
Estimated Creat Clear 82 ml/min 04/26/24 05:46
Lactic Acid 1.3 mmol/L (0.7-2.0) 04/22/24 07:49
Total Bilirubin 0.7 mg/dl (0.2-1.3) 04/22/24 07:49
AST 19 U/L (14-36) 04/22/24 07:49
ALT 11 U/L (0-35) 04/22/24 07:49
Alkaline Phosphatase 88 U/L (38-126) 04/22/24 07:49
Most recent labs reviewed.
Micro Results:
04/22/24 14:51 Blood Culture - Preliminary
Blood/Venous Yeast
Gram Stain - Preliminary
04/25/24 11:40 Blood Culture - Preliminary
Blood/Venous No Growth in 24 hours- Final report to follow
04/25/24 10:40 Blood Culture - Preliminary
Blood/Venous No Growth in 24 hours- Final report to follow
04/21/24 07:54 Blood Culture - Final
Blood/Venous No Growth - Final Report
04/20/24 16:29 Blood Culture - Final
Blood/Venous No Growth - Final Report
04/22/24 13:49 Blood Culture - Preliminary
Blood/Venous No Growth in 72 hours- Final report to follow
04/20/24 18:14 Urine Culture - Final
Urine Escherichia coli
Staphylococcus epidermidis
Leuconostoc
Yeast
04/22/24 13:06 Urine Culture - Final
Urine NO GROWTH
04/20/24 11:53 Influenza Types A & B (ELEANOR) - Final
Nasal Swab Negative for Influenza A & B, NAAT
Negative results must be combined with clinical observations
and patient history.
Nucleic Acid Amplification test (NAAT)performed on the
[employer] platform.
[2024-04-26] MEDS: NOVOLOG FLEXPEN-LOW RESISTANCE 2 UNITS SC (12:51)
[2024-04-26 14:59] LABS: Hematocrit 30.7 % (37.0-47.0); Hemoglobin 9.7 g/dL (12.0-16.0); Mean Corp Hgb Conc. 31.6 g/dL (33.0-37.0); Mean Corpuscular Hgb 27.2 pg (27.0-31.0); Mean Corpuscular Volume 86.2 fL (81.0-99.0); Mean Platelet Volume 10.4 fL (7.4-10.4); Platelet Count 212 10^3/uL (130-400); Red Blood Cell Count 3.56 10^6/uL (4.20-5.40); Red Cell Dist. Width 14.1 % (11.5-14.5); White Blood Cell Count 10.7 10^3/uL (4.8-10.8)
[2024-04-26 15:22] VITALS: BP 108/63
[2024-04-26 16:13] LABS: Glucose - Point of Care 98 mg/dl (70-99)
[2024-04-26] MEDS: NOVOLOG FLEXPEN-LOW RESISTANCE SC (17:30)
[2024-04-26 19:00] VITALS: BP 110/65
[2024-04-26] MEDS: HEPARIN 5000 UNITS SC (19:35)
[2024-04-26 22:02] LABS: Glucose - Point of Care 67 mg/dl (70-99)
[2024-04-26 22:17] LABS: Glucose - Point of Care 67 mg/dl (70-99)
[2024-04-26 22:32] LABS: Glucose - Point of Care 114 mg/dl (70-99)
[2024-04-26 23:00] VITALS: BP 98/63
[2024-04-27] VITALS (7 sets, daily range): BP systolic 99–150; BP diastolic 54–85; PULSE 99
[2024-04-27 02:28] LABS: Glucose - Point of Care 110 mg/dl (70-99)
[2024-04-27 06:09] LABS: Hematocrit 26.8 % (37.0-47.0); Hemoglobin 8.7 g/dL (12.0-16.0); Mean Corp Hgb Conc. 32.5 g/dL (33.0-37.0); Mean Corpuscular Hgb 26.9 pg (27.0-31.0); Mean Platelet Volume 10.7 fL (7.4-10.4); Platelet Count 189 10^3/uL (130-400); Red Blood Cell Count 3.23 10^6/uL (4.20-5.40); Red Cell Dist. Width 14.1 % (11.5-14.5); White Blood Cell Count 11.5 10^3/uL (4.8-10.8)
[2024-04-27] MEDS: ROXICODONE 5 MG PO ×2 (06:09→17:10)
[2024-04-27 06:31] LABS: Blood Urea Nitrogen 8 mg/dl (7-17); Calcium 8.1 mg/dl (8.4-10.2); Carbon Dioxide 23 mmol/L (22-30); Chloride 105 mmol/L (98-107); Estimated Creatinine Clearance 82 ml/min; Glucose 101 mg/dl (70-99); Potassium 3.4 mmol/L (3.5-5.1); Sodium 136 mmol/L (135-145); eGFR > 60.00
[2024-04-27 07:42] LABS: Glucose - Point of Care 122 mg/dl (70-99)
[2024-04-27] MEDS: CRESTOR 20 MG PO (08:32)
[2024-04-27] MEDS: LEVAQUIN 750 MG PO (08:32)
[2024-04-27] MEDS: NEURONTIN 800 MG PO ×2 (08:33→20:01)
[2024-04-27] MEDS: LANTUS 0.18 UNITS SC (08:34)
[2024-04-27] MEDS: ProAmatine 2.5 MG PO ×2 (08:34→14:04)
[2024-04-27] MEDS: FLOMAX 0.4 MG PO (08:34)
[2024-04-27] MEDS: HEPARIN 5000 UNITS SC ×2 (08:34→20:01)
[2024-04-27] MEDS: NOVOLOG FLEXPEN-LOW RESISTANCE SC ×2 (08:35→18:03)
[2024-04-27] MEDS: NOVOLOG FLEXPEN 5 UNITS SC ×3 (08:42→18:21)
[2024-04-27] MEDS: KCL ELIXIR 40 MEQ PO (09:41)
[2024-04-27] MEDS: MYCAMINE 105 MG IV (10:21)
[2024-04-27 11:40] LABS: Glucose - Point of Care 194 mg/dl (70-99)
--- NOTE | 2024-04-27 12:20 | W.PN.HOSP.TC ---
Today's Communication/Plan
-
continue Levaquin
continue Micafungin; follow ID recs
Assessment / Plan
Assessment / Plan
Assessment:
Rapid response 04/22 AM for symptomatic hypotension
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
Hydronephrosis secondary to the above
UTI secondary to the above
Sepsis secondary to the above (tachycardia, leukocytosis, UTI) with hypotension (no evidence of shock, lactate <4 and never on vasopressors)
- s/p stent/stone procedure 04/21
- pain control
- Urine culture with multi-drug resistant E. Coli, Staph epi - continue Levaquin through 05/01 per ID
- 2nd set of blood cultures, 1/2 sets with budding yeast
- repeat Bcx (prior to Micafungin) - NGTD
- continue Micafungin; follow ID recs
- ID/Urology following
- repeat CT with ongoing fevers was performed 04/27: no acute abnormalities
DM-II
- uncontrolled in setting of sepsis
- continue Lantus and Aspart now at home doses. continue SSI.
- A1C 7.2%
Hypertension / Hypotension
- Previously maintained on metoprolol for BP control and tachycardia. was resumed in hospital overnight 04/21 into 04/22 -> led to hypotension
- Now on midodrine TID per PCP
- Follow BP and adjust medications as needed.
- IVFs as above for sepsis.
Sinus tachycardia
- appropriate response to sepsis/fever
- monitor for changes in rhythm
- TSH low, FT4 normal - repeat TFTs in 4-6 weeks
Nonischemic myocardial injury from sinus tachycardia and sepsis
Peripheral Neuropathy
- Stable. Continue current home dose of gabapentin.
History of SVT s/p Ablation (remote)
Lumbar DDD
History of Gastric Sleeve
- Stable. No acute issues / complaints.
Hypokalemia - replete prn
Dilutional anemia
- follow CBC
- no evidence of active bleeding
DVT Prophylaxis: SCDs
Code Status: Full
Anticipated Discharge: > 48 hours
Subjective/Interval History
-
Date of Service: April 27, 2024
Tmax 100.7 (7pm last evening)
no acute complaints today
Objective Data
-
Labs:
Laboratory Results
04/27/24
05:43
WBC 11.5 H
Hgb 8.7 L
Hct 26.8 L
Plt Count 189
Sodium 136
Potassium 3.4 L
Chloride 105
Carbon Dioxide 23
BUN 8
Creatinine 0.7
Glucose 101 H
Calcium 8.1 L
Vital Signs:
Vital Signs
Temp Pulse Resp BP Pulse Ox
98.3 F 97 13 123/73 97
04/27/24 11:39 04/27/24 11:39 04/27/24 11:39 04/27/24 11:39 04/27/24 11:39
I&O
04/26/24 04/27/24 04/28/24
06:59 06:59 06:59
Intake Total 840 / 840 930 / 930
Balance 840 / 840 930 / 930
Physical Exam
-
General: No Apparent Distress
HEENT: Normocephalic and Atraumatic
Respiratory: Negative Wheezes
Cardiac: Regular Rhythm and S1/S2
GI: Soft and Nontender
Musculoskeletal: No Edema
Psych: Calm
Data Reviewed
-
Total Time Spent with Patient (in minutes): 42
Labs: Labs Reviewed by me
--- NOTE | 2024-04-27 12:41 | W.PN.URO.CBU ---
Today's Communication / Plan
-
as per hospital;ost
Assessment / Plan
-
stented and ct scan showed nl jj stent placemt no abscss but wbc sl up and fevr sl down and sl increase rt flank discomfort plan to continue iv abs and antifungal may need j sretent exchange
Diagnosis
-
Date of Service: April 27, 2024
-
Patient Diagnosis:
Post Op Day:
Patient Diagnosis:
Post Op Day:
Patient Diagnosis:
Post Op Day:
Patient Diagnosis:
Post Op Day:
Patient Diagnosis:
Post Op Day:
Patient Diagnosis:
Post Op Day:
Patient Diagnosis:pain colic due to rt 4 mm stone prox rt ureteerof upper pole moiety in crossed renal ectopia now fever post manipulationof obstructing stone hAD POS T OP FEVR REATED WITH IV ABSD BLOOD CSXS POS CANDIDEMIA PERSISTENT FEVER
ALBEIT LOWER WITH 24 HOURS PEGGY COVERAGE
Post Op Day: 2
Subjective
-
INCREASED RT COLIC LESS TEMPP TODAY
Objective
-
Vital Signs
Temp Pulse Resp BP Pulse Ox
98.3 F 97 13 123/73 97
04/27/24 11:39 04/27/24 11:39 04/27/24 11:39 04/27/24 11:39 04/27/24 11:39
Intake and Output
04/26/24 04/27/24 04/28/24
06:59 06:59 06:59
Intake Total 840 / 840 930 / 930
Balance 840 / 840 930 / 930
Intake:
Oral fluids 840 / 840 930 / 930
Other:
Number of approximated MODERATE 1
amounts of urine
Number of approximated LARGE 1
amounts of urine
How many times incontinent 1
SMALL amount urine
How many times incontinent 1
MODERATE amount urine
How many times incontinent 2 1
SATURATED amount urine
Laboratory Results
04/27/24 05:43
04/27/24 05:43
Review of Systems
-
Constitutional: Fever
: Flank Pain
Physical Exam
-
General - well developed, well nourished, no acute distress
Chest - clear bilaterally
Abdomen - soft, non-tender, positive bowel sounds, no CVAT, no incisional pain or distention
Genitalia - normal
Rectal - normal
Skin - warm & dry with no rash
Neuro - AOx3, no motor deficits
Extremities - no clubbing, no cyanosis, no edema
Incision - clean, dry
Dressing - clean, dry, intact
Care Review
Data Reviewed
Discussed with: Infectious Disease and Hospitalist
CT Scan: Image Pers Reviewed
[2024-04-27] MEDS: NOVOLOG FLEXPEN-LOW RESISTANCE 1 UNITS SC (14:04)
--- NOTE | 2024-04-27 14:36 | W.PN.ID1 ---
Date of Service
Date of Service: April 27, 2024
Today's Communication
Continue micafungin and levofloxacin.
Assessment / Plan
Right Pyelonephritis
Funguria
cross-fused kidneys with single ureter
Renal Stones
KATEY
Fungemia
Recommendations:
- s/p lithotripsy of obstructing stone and stent placement (04/21/24)
- 04/20 urine culture polymicrobial (potentially contaminated) - workup reveals E. coli, staph epi, Leuconostoc and yeast
- 04/22 urine culture negative
- blood cultures x2 on 04/20 revealed no growth, but 04/22 blood culture reveals budding yeast
- qtc 466
- Continue levofloxacin 750 mg po qday for a 10 day total course (04/22 to 05/01)
- Continue micafungin. Following rpt blood cultures (obtained before initiation of antifungal therapy.)
Monitor white count and temperature curve.
����������������������������������������������������������
Chief Complaint
-: Bacteremia (Fungemia) and Other (pyelonephritis; Fungemia)
Subjective / Review of Systems
Patient seen and examined. Reports some right flank discomfort. Fever noted last evening. No dysuria.
Vital Signs / Physical Exam
Vital Signs
Vital Signs
Temp Pulse Resp BP Pulse Ox
98.3 F 97 13 123/73 97
04/27/24 11:39 04/27/24 11:39 04/27/24 11:39 04/27/24 11:39 04/27/24 11:39
Physical Exam
Constitutional: No Acute Distress, Comfortable and Non-toxic
Eyes: Sclera Anicteric
Pulmonary: Non Labored
Gastrointestinal: Non Distended
Extremities: Negative Edema or Erythema
Skin: Negative Rash or Jaundice
Neurological: Awake and Alert
Psychological: Calm
Objective Data
Lab Data
Lab Results
04/27/24 05:43
04/27/24 05:43
PT 15.3 Sec (11.4-14.6) H 04/22/24 07:49
INR 1.16 04/22/24 07:49
APTT 29.4 Sec (23.4-35.0) 04/22/24 07:49
Estimated Creat Clear 82 ml/min 04/27/24 05:43
Lactic Acid 1.3 mmol/L (0.7-2.0) 04/22/24 07:49
Total Bilirubin 0.7 mg/dl (0.2-1.3) 04/22/24 07:49
AST 19 U/L (14-36) 04/22/24 07:49
ALT 11 U/L (0-35) 04/22/24 07:49
Alkaline Phosphatase 88 U/L (38-126) 04/22/24 07:49
Most recent labs reviewed.
Micro Results:
04/22/24 13:49 Blood Culture - Final
Blood/Venous No Growth - Final Report
04/25/24 11:40 Blood Culture - Preliminary
Blood/Venous No Growth in 48 hours- Final report to follow
04/25/24 10:40 Blood Culture - Preliminary
Blood/Venous No Growth in 48 hours- Final report to follow
04/22/24 14:51 Blood Culture - Preliminary
Blood/Venous Yeast
Gram Stain - Preliminary
04/21/24 07:54 Blood Culture - Final
Blood/Venous No Growth - Final Report
04/20/24 16:29 Blood Culture - Final
Blood/Venous No Growth - Final Report
04/20/24 18:14 Urine Culture - Final
Urine Escherichia coli
Staphylococcus epidermidis
Leuconostoc
Yeast
04/22/24 13:06 Urine Culture - Final
Urine NO GROWTH
04/20/24 11:53 Influenza Types A & B (ELEANOR) - Final
Nasal Swab Negative for Influenza A & B, NAAT
Negative results must be combined with clinical observations
and patient history.
Nucleic Acid Amplification test (NAAT)performed on the
[employer] platform.
--- NOTE | 2024-04-27 14:58 | W.PN.ID1 ---
Date of Service
Date of Service: April 27, 2024
Today's Communication
Continue micafungin and levofloxacin.
Assessment / Plan
Fungemia, source
Right Pyelonephritis
Funguria
cross-fused kidneys with single ureter
Renal Stones
KATEY
Recommendations:
- s/p lithotripsy of obstructing stone and stent placement (04/21/24)
- 04/20 urine culture polymicrobial (potentially contaminated) - workup reveals E. coli, staph epi, Leuconostoc and yeast
- 04/22 urine culture negative
- blood cultures x2 on 04/20 revealed no growth, but 04/22 blood culture reveals budding yeast
- qtc 466
- Continue levofloxacin 750 mg po qday for a 10 day total course (04/22 to 05/01)
- Continue micafungin (d3). Following rpt blood cultures x 2 neg to date (obtained before initiation of antifungal therapy.)
Monitor white count and temperature curve.
����������������������������������������������������������
Chief Complaint
-: Bacteremia (Fungemia) and Other (pyelonephritis; Fungemia)
Subjective / Review of Systems
No complaints today. No visual changes.
Vital Signs / Physical Exam
Vital Signs
Vital Signs
Temp Pulse Resp BP Pulse Ox
98.3 F 97 13 123/73 97
04/27/24 11:39 04/27/24 11:39 04/27/24 11:39 04/27/24 11:39 04/27/24 11:39
Physical Exam
Constitutional: No Acute Distress, Comfortable and Non-toxic
Eyes: Sclera Anicteric
Pulmonary: Non Labored
Gastrointestinal: Non Distended
Extremities: Negative Edema or Erythema
Skin: Negative Rash or Jaundice
Neurological: Awake and Alert
Psychological: Calm
Objective Data
Lab Data
Lab Results
04/27/24 05:43
04/27/24 05:43
PT 15.3 Sec (11.4-14.6) H 04/22/24 07:49
INR 1.16 04/22/24 07:49
APTT 29.4 Sec (23.4-35.0) 04/22/24 07:49
Estimated Creat Clear 82 ml/min 04/27/24 05:43
Lactic Acid 1.3 mmol/L (0.7-2.0) 04/22/24 07:49
Total Bilirubin 0.7 mg/dl (0.2-1.3) 04/22/24 07:49
AST 19 U/L (14-36) 04/22/24 07:49
ALT 11 U/L (0-35) 04/22/24 07:49
Alkaline Phosphatase 88 U/L (38-126) 04/22/24 07:49
Most recent labs reviewed.
Micro Results:
04/22/24 13:49 Blood Culture - Final
Blood/Venous No Growth - Final Report
04/25/24 11:40 Blood Culture - Preliminary
Blood/Venous No Growth in 48 hours- Final report to follow
04/25/24 10:40 Blood Culture - Preliminary
Blood/Venous No Growth in 48 hours- Final report to follow
04/22/24 14:51 Blood Culture - Preliminary
Blood/Venous Yeast
Gram Stain - Preliminary
04/21/24 07:54 Blood Culture - Final
Blood/Venous No Growth - Final Report
04/20/24 16:29 Blood Culture - Final
Blood/Venous No Growth - Final Report
04/20/24 18:14 Urine Culture - Final
Urine Escherichia coli
Staphylococcus epidermidis
Leuconostoc
Yeast
04/22/24 13:06 Urine Culture - Final
Urine NO GROWTH
04/20/24 11:53 Influenza Types A & B (ELEANOR) - Final
Nasal Swab Negative for Influenza A & B, NAAT
Negative results must be combined with clinical observations
and patient history.
Nucleic Acid Amplification test (NAAT)performed on the
[employer] platform.
--- NOTE | 2024-04-27 15:25 | CM ---
CM reviewed pt with Dr Wooten- MIGUEL ÁNGEL tomorrow pending temp
VN recs- pt in agreement
Referral to [facility] per her request
IMM verbally completed- copy provided
Discharge Disposition- home with VN (referral pending)
[2024-04-27 16:35] LABS: Glucose - Point of Care 120 mg/dl (70-99)
[2024-04-27] MEDS: ProAmatine PO (18:03)
[2024-04-27 21:45] LABS: Glucose - Point of Care 159 mg/dl (70-99)
[2024-04-28 03:40] VITALS: BP 108/64
[2024-04-28 06:27] LABS: Hematocrit 26.7 % (37.0-47.0); Hemoglobin 8.8 g/dL (12.0-16.0); Mean Corpuscular Hgb 27.6 pg (27.0-31.0); Mean Corpuscular Volume 83.7 fL (81.0-99.0); Mean Platelet Volume 10.8 fL (7.4-10.4); Platelet Count 226 10^3/uL (130-400); Red Blood Cell Count 3.19 10^6/uL (4.20-5.40); Red Cell Dist. Width 14.2 % (11.5-14.5); White Blood Cell Count 11.2 10^3/uL (4.8-10.8)
[2024-04-28 06:54] LABS: Blood Urea Nitrogen 8 mg/dl (7-17); Calcium 8.1 mg/dl (8.4-10.2); Carbon Dioxide 23 mmol/L (22-30); Chloride 104 mmol/L (98-107); Estimated Creatinine Clearance 72 ml/min; Glucose 152 mg/dl (70-99); Potassium 3.9 mmol/L (3.5-5.1); Sodium 136 mmol/L (135-145); eGFR > 60.00
[2024-04-28 07:35] VITALS: BP 110/66
[2024-04-28 07:57] LABS: Glucose - Point of Care 186 mg/dl (70-99)
[2024-04-28] MEDS: LEVAQUIN 750 MG PO (08:22)
[2024-04-28] MEDS: HEPARIN 5000 UNITS SC ×2 (08:22→20:26)
[2024-04-28] MEDS: CRESTOR 20 MG PO (08:22)
[2024-04-28] MEDS: ProAmatine 2.5 MG PO ×3 (08:22→19:05)
[2024-04-28] MEDS: FLOMAX 0.4 MG PO (08:22)
[2024-04-28] MEDS: NEURONTIN 800 MG PO ×2 (08:22→20:26)
[2024-04-28] MEDS: LANTUS 0.18 UNITS SC (08:22)
[2024-04-28] MEDS: NOVOLOG FLEXPEN-LOW RESISTANCE 1 UNITS SC (08:59)
[2024-04-28] MEDS: NOVOLOG FLEXPEN 5 UNITS SC ×3 (09:00→19:04)
[2024-04-28] MEDS: MYCAMINE 105 MG IV (10:12)
--- NOTE | 2024-04-28 10:39 | W.PN.ID1 ---
Addendum entered and electronically signed by Joslyn Martel MD 04/28/24 16:47:
yeast not yet IDd
Original Note:
Date of Service
Date of Service: April 28, 2024
Today's Communication
awaiting ID of the yeast
Assessment / Plan
Fungemia, source
Right Pyelonephritis
Funguria
cross-fused kidneys with single ureter
Renal Stones
KATEY
Recommendations:
- s/p lithotripsy of obstructing stone and stent placement (04/21/24)
- 04/20 urine culture polymicrobial (potentially contaminated) - workup reveals E. coli, staph epi, Leuconostoc and yeast
- 04/22 urine culture negative
- blood cultures x2 on 04/20 revealed no growth, but 04/22 blood culture reveals budding yeast
- 04/25 blood cultures x2 no growth to date
- qtc 466
- c/w levofloxacin for a 10 day total course (04/22 to 05/01)
- c/w micafungin today (d4) pending ID of the yeast, likely switch to azole to complete 14 day course of therapy
- Following repeat blood cultures x 2 neg to date (obtained before initiation of antifungal therapy.)
Monitor white count and temperature curve.
����������������������������������������������������������
Chief Complaint
-: Bacteremia (Fungemia) and Other (pyelonephritis; Fungemia)
Subjective / Review of Systems
fever resolving
bp stable
no events overnight
still with some tenderness over the groin c/w stent pain
Vital Signs / Physical Exam
Vital Signs
Vital Signs
Temp Pulse Resp BP Pulse Ox
98.3 F 98 20 110/66 95
04/28/24 07:35 04/28/24 08:22 04/28/24 07:35 04/28/24 08:22 04/28/24 07:35
Physical Exam
Constitutional: No Acute Distress
Cardiovascular: Regular Rate and S1/S2; Negative Murmur or Rub
Pulmonary: Clear and Symmetric; Negative Wheezes or Rales
Gastrointestinal: Soft, Non Tender, Non Distended and Normal Bowel Sounds
Skin: Warm and Dry; Negative Rash or Jaundice
Objective Data
Lab Data
Lab Results
04/28/24 05:37
04/28/24 05:37
PT 15.3 Sec (11.4-14.6) H 04/22/24 07:49
INR 1.16 04/22/24 07:49
APTT 29.4 Sec (23.4-35.0) 04/22/24 07:49
Estimated Creat Clear 72 ml/min 04/28/24 05:37
Lactic Acid 1.3 mmol/L (0.7-2.0) 04/22/24 07:49
Total Bilirubin 0.7 mg/dl (0.2-1.3) 04/22/24 07:49
AST 19 U/L (14-36) 04/22/24 07:49
ALT 11 U/L (0-35) 04/22/24 07:49
Alkaline Phosphatase 88 U/L (38-126) 04/22/24 07:49
Most recent labs reviewed.
Urine Culture Final 04/25/24-1128
CC: 40,000 CFU/ML Escherichia coli
CC: 80,000 CFU/ML Staphylococcus epidermidis
CC: 100,000 CFU/ML Leuconostoc species
CC: Greater than 100,000 CFU/ML Yeast
Organism 1 Escherichia coli
Organism 2 Staphylococcus epidermidis
Organism 3 Leuconostoc

* This is a amended result due to physician
request for workup *

A prior result that was reported as final has been changed.
E.COLI S.EPID
M.I.C. RX M.I.C. RX
--------- --- --------- ---
Amoxicillin/Potas. Clavulanate >16/8 R <=4/2 R
Ampicillin >16 R <=2 R
Ampicillin/Sulbactam 16/8 I
Aztreonam <=4 S
Cefazolin 16 R
Cefepime <=2 S
Ceftazidime <=1 S
Ceftriaxone <=1 S
Ertapenem <=0.5 S
Ciprofloxacin <=0.25 S
Gentamicin <=2 S <=4 S
Levofloxacin <=1 S
Oxacillin >2 R
Meropenem <=1 S
Nitrofurantoin-Urine Only <=32 S <=32 S
Piperacillin/Tazobactam <=8 S
Tetracycline >8 R <=4 S
Tobramycin <=2 S
Trimethoprim/Sulfamethoxazole <=2/38 S <=0.5/9.5 S
Vancomycin 1 S
Micro Results:
04/22/24 13:49 Blood Culture - Final
Blood/Venous No Growth - Final Report
04/25/24 11:40 Blood Culture - Preliminary
Blood/Venous No Growth in 48 hours- Final report to follow
04/25/24 10:40 Blood Culture - Preliminary
Blood/Venous No Growth in 48 hours- Final report to follow
04/22/24 14:51 Blood Culture - Preliminary
Blood/Venous Yeast
Gram Stain - Preliminary
04/21/24 07:54 Blood Culture - Final
Blood/Venous No Growth - Final Report
04/20/24 16:29 Blood Culture - Final
Blood/Venous No Growth - Final Report
04/20/24 18:14 Urine Culture - Final
Urine Escherichia coli
Staphylococcus epidermidis
Leuconostoc
Yeast
04/22/24 13:06 Urine Culture - Final
Urine NO GROWTH
04/20/24 11:53 Influenza Types A & B (ELEANOR) - Final
Nasal Swab Negative for Influenza A & B, NAAT
Negative results must be combined with clinical observations
and patient history.
Nucleic Acid Amplification test (NAAT)performed on the
[employer] platform.
[2024-04-28 11:00] VITALS: BP 97/59
--- NOTE | 2024-04-28 11:28 | W.PN.HOSP.TC ---
Today's Communication/Plan
-
fever curve improving
continue Levaquin
continue Micafungin
follow ID recs
Assessment / Plan
Assessment / Plan
Assessment:
Rapid response 04/22 AM for symptomatic hypotension
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
Hydronephrosis secondary to the above
UTI secondary to the above
Sepsis secondary to the above (tachycardia, leukocytosis, UTI) with hypotension (no evidence of shock, lactate <4 and never on vasopressors)
- s/p stent/stone procedure 04/21
- continue pain control
- Urine culture with multi-drug resistant E. Coli, Staph epi - continue Levaquin through 05/01 per ID
- 2nd set of blood cultures, 1/2 sets with budding yeast
- repeat Bcx (prior to Micafungin) - NGTD
- continue Micafungin; follow ID recs
- ID/Urology following
- repeat CT with ongoing fevers was performed 04/27: no acute abnormalities
DM-II
- uncontrolled in setting of sepsis
- continue Lantus and Aspart now at home doses. continue SSI.
- A1C 7.2%
Hypertension / Hypotension
- Previously maintained on metoprolol for BP control and tachycardia. was resumed in hospital overnight 04/21 into 04/22 -> led to hypotension
- Now on midodrine TID per PCP
- Follow BP and adjust medications as needed.
- IVFs as above for sepsis.
Sinus tachycardia
- appropriate response to sepsis/fever
- monitor for changes in rhythm
- TSH low, FT4 normal - repeat TFTs in 4-6 weeks
Nonischemic myocardial injury from sinus tachycardia and sepsis
Peripheral Neuropathy
- Stable. Continue current home dose of gabapentin.
History of SVT s/p Ablation (remote)
Lumbar DDD
History of Gastric Sleeve
- Stable. No acute issues / complaints.
Hypokalemia - replete prn
Dilutional anemia
- follow CBC
- no evidence of active bleeding
DVT Prophylaxis: SCDs
Code Status: Full
Anticipated Discharge: 24 - 48 hours
Subjective/Interval History
-
Date of Service: April 28, 2024
denies any new complaints
stable mild R flank pain
last documented fever was 16 PM
Objective Data
-
Labs:
Laboratory Results
04/28/24
05:37
WBC 11.2 H
Hgb 8.8 L
Hct 26.7 L
Plt Count 226
Sodium 136
Potassium 3.9
Chloride 104
Carbon Dioxide 23
BUN 8
Creatinine 0.8
Glucose 152 H
Calcium 8.1 L
Vital Signs:
Vital Signs
Temp Pulse Resp BP Pulse Ox
98.3 F 107 18 97/59 99
04/28/24 11:00 04/28/24 11:00 04/28/24 11:00 04/28/24 11:00 04/28/24 11:00
I&O
04/27/24 04/28/24 04/29/24
06:59 06:59 06:59
Intake Total 930 / 930
Balance 930 / 930
Physical Exam
-
General: No Apparent Distress
HEENT: Normocephalic and Atraumatic
Respiratory: Negative Wheezes
Cardiac: Regular Rhythm and S1/S2
GI: Soft and Nontender
Genito-urinary: No Costovertebral Tender
Musculoskeletal: No Edema
Neuro: AO x 3
Psych: Calm
Data Reviewed
-
Total Time Spent with Patient (in minutes): 42
Labs: Labs Reviewed by me
[2024-04-28 11:51] LABS: Glucose - Point of Care 149 mg/dl (70-99)
--- NOTE | 2024-04-28 12:43 | CM ---
CM reviewed chart-not ready for dc today
Pt accepted for service by VN
No other dc needs noted at this time
Discharge Disposition- home with [facility]
[2024-04-28] MEDS: NOVOLOG FLEXPEN-LOW RESISTANCE SC ×2 (14:21→19:04)
--- NOTE | 2024-04-28 15:40 | W.PN.URO.CBU ---
Today's Communication / Plan
-
no gu intervention
Assessment / Plan
-
stented wcbc down temp down no colic for now continue poresent g care
Diagnosis
-
Date of Service: April 28, 2024
-
Patient Diagnosis:
Post Op Day:
Patient Diagnosis:
Post Op Day:
Patient Diagnosis:
Post Op Day:
Patient Diagnosis:
Post Op Day:
Patient Diagnosis:
Post Op Day:
Patient Diagnosis:
Post Op Day:
Patient Diagnosis:
Post Op Day:
Patient Diagnosis:pain colic due to rt 4 mm stone prox rt ureteerof upper pole moiety in crossed renal ectopia now fever post manipulationof obstructing stone hAD POS T OP FEVR REATED WITH IV ABSD BLOOD CSXS POS CANDIDEMIA PERSISTENT FEVER
ALBEIT LOWER WITH 24 HOURS PEGGY COVERAGE
Post Op Day: 2
Subjective
-
pt feeling better today no colic which was pesent yestaerday
Objective
-
Vital Signs
Temp Pulse Resp BP Pulse Ox
98.3 F 96 18 87/61 99
04/28/24 11:00 04/28/24 13:08 04/28/24 11:00 04/28/24 13:08 04/28/24 11:00
Intake and Output
04/27/24 04/28/24 04/29/24
06:59 06:59 06:59
Intake Total 930 / 930
Balance 930 / 930
Intake:
Oral fluids 930 / 930
Other:
Number of approximated LARGE 1
amounts of urine
How many times incontinent 1
SMALL amount urine
How many times incontinent 1 2
MODERATE amount urine
How many times incontinent 1 1
SATURATED amount urine
Laboratory Results
04/28/24 05:37
04/28/24 05:37
Review of Systems
-
: Frequency
Physical Exam
-
General - well developed, well nourished, no acute distress
Chest - clear bilaterally
Abdomen - soft, non-tender, positive bowel sounds, no CVAT, no incisional pain or distention
Genitalia - normal
Rectal - normal
Skin - warm & dry with no rash
Neuro - AOx3, no motor deficits
Extremities - no clubbing, no cyanosis, no edema
Incision - clean, dry
Dressing - clean, dry, intact
Care Review
Data Reviewed
Discussed with: Nursing
[2024-04-28 15:50] VITALS: BP 132/81
[2024-04-28] MEDS: ROXICODONE 5 MG PO (16:34)
[2024-04-28 17:36] LABS: Glucose - Point of Care 115 mg/dl (70-99)
[2024-04-28 19:00] VITALS: BP 112/69
[2024-04-28 21:21] LABS: Glucose - Point of Care 120 mg/dl (70-99)
[2024-04-28 23:00] VITALS: BP 124/70
[2024-04-29] MEDS: ROXICODONE 5 MG PO (02:14)
--- NOTE | 2024-04-29 02:44 | DOWNTIME ---
There was a [employer] Downtime on 04/29/2024 from 0100 to 04/29/2023 at 0235 . Downtime documentation of patient's care, including medication administrations, has been reconciled in the electronic record per guidelines. Refer to the
patient's paper chart under the miscellaneous tab to see printed paper medication records and downtime forms.
[2024-04-29 03:00] VITALS: BP 123/70
[2024-04-29 05:54] LABS: Hematocrit 25.6 % (37.0-47.0); Hemoglobin 8.3 g/dL (12.0-16.0); Mean Corp Hgb Conc. 32.4 g/dL (33.0-37.0); Mean Corpuscular Hgb 27.2 pg (27.0-31.0); Mean Corpuscular Volume 83.9 fL (81.0-99.0); Mean Platelet Volume 10.3 fL (7.4-10.4); Platelet Count 233 10^3/uL (130-400); Red Blood Cell Count 3.05 10^6/uL (4.20-5.40); White Blood Cell Count 9.4 10^3/uL (4.8-10.8)
[2024-04-29 06:12] LABS: Blood Urea Nitrogen 8 mg/dl (7-17); Calcium 8.1 mg/dl (8.4-10.2); Carbon Dioxide 24 mmol/L (22-30); Chloride 105 mmol/L (98-107); Estimated Creatinine Clearance 82 ml/min; Glucose 91 mg/dl (70-99); Potassium 3.6 mmol/L (3.5-5.1); Sodium 137 mmol/L (135-145); eGFR > 60.00
[2024-04-29 07:39] VITALS: BP 105/62
[2024-04-29 07:49] LABS: Glucose - Point of Care 72 mg/dl (70-99)
[2024-04-29] MEDS: NOVOLOG FLEXPEN-LOW RESISTANCE SC ×3 (08:02→17:40)
[2024-04-29] MEDS: ProAmatine 2.5 MG PO ×3 (08:03→17:41)
[2024-04-29] MEDS: LANTUS 0.18 UNITS SC (08:03)
[2024-04-29] MEDS: LEVAQUIN 750 MG PO (08:03)
[2024-04-29] MEDS: NEURONTIN 800 MG PO (08:03)
[2024-04-29] MEDS: CRESTOR 20 MG PO (08:03)
[2024-04-29] MEDS: FLOMAX 0.4 MG PO (08:04)
[2024-04-29] MEDS: HEPARIN 5000 UNITS SC (08:04)
[2024-04-29] MEDS: NOVOLOG FLEXPEN 5 UNITS SC ×2 (08:25→13:16)
--- NOTE | 2024-04-29 09:17 | W.PN.URO.CBU ---
Today's Communication / Plan
-
no gu interventions
Assessment / Plan
-
stented wbc down temp down no colic await id of fungus but clinically improved plan oper id and hodpitalist ni plan to exchnage jj stent at this time
Diagnosis
-
Date of Service: April 29, 2024
-
Patient Diagnosis:
Post Op Day:
Patient Diagnosis:
Post Op Day:
Patient Diagnosis:
Post Op Day:
Patient Diagnosis:
Post Op Day:
Patient Diagnosis:
Post Op Day:
Patient Diagnosis:
Post Op Day:
Patient Diagnosis:
Post Op Day:
Patient Diagnosis:
Post Op Day:
Patient Diagnosis:pain colic due to rt 4 mm stone prox rt ureteerof upper pole moiety in crossed renal ectopia now fever post manipulationof obstructing stone hAD POS T OP FEVR REATED WITH IV ABSD BLOOD CSXS POS CANDIDEMIA PERSISTENT FEVER
ALBEIT LOWER WITH 24 HOURS PEGGY COVERAGE
Post Op Day: 2
Subjective
-
improving
Objective
-
Vital Signs
Temp Pulse Resp BP Pulse Ox
98.6 F 98 12 105/62 96
04/29/24 07:39 04/29/24 07:39 04/29/24 07:39 04/29/24 07:39 04/29/24 07:39
Intake and Output
04/28/24 04/29/24 04/30/24
06:59 06:59 06:59
Intake Total 1540 / 1540
Balance 1540 / 1540
Intake:
Oral fluids 1440 / 1440
IV piggybacks 100 / 100
Other:
Number of approximated MODERATE 2
amounts of urine
How many times incontinent 2
MODERATE amount urine
How many times incontinent 1 3
SATURATED amount urine
Laboratory Results
04/29/24 05:20
04/29/24 05:20
Review of Systems
-
: No Symptoms
Physical Exam
-
General - well developed, well nourished, no acute distress
Chest - clear bilaterally
Abdomen - soft, non-tender, positive bowel sounds, no CVAT, no incisional pain or distention
Genitalia - normal
Rectal - normal
Skin - warm & dry with no rash
Neuro - AOx3, no motor deficits
Extremities - no clubbing, no cyanosis, no edema
Incision - clean, dry
Dressing - clean, dry, intact
[2024-04-29] MEDS: DIFLUCAN 400 MG PO (10:31)
--- NOTE | 2024-04-29 10:56 | CM ---
Addendum entered by Hillary Crockett 04/29/24 12:09:
IMM completed and form signed and placed on chart.
Original Note:
Patient seen at bedside. Patient with no concerns about going home with [facility]. Patient has transportation home an plan is for patient to go home possibly today. CM will continue to follow for discharge planning needs.
Plan; home with [facility]
[2024-04-29 11:08] VITALS: BP 101/61
[2024-04-29 11:43] VITALS: BP 101/64; BP 95/63; PULSE 99; O2SAT 97
[2024-04-29 11:52] LABS: Glucose - Point of Care 126 mg/dl (70-99)
--- NOTE | 2024-04-29 11:55 | W.PN.HOSP.TC ---
Addendum entered and electronically signed by Joaquin Wooten MD 04/29/24 15:05:
More than 30 minutes spent in discharge including
Final examination of the patient
Summarizing hospital stay
Instructions for continuing care to all relevant caregivers
Preparation of discharge records, prescriptions, and referral forms
Total time spent (in minutes): 42
Original Note:
Today's Communication/Plan
-
EKG this afternoon and if QTC <500 dc to home
Assessment / Plan
Assessment / Plan
Assessment:
Rapid response 04/22 AM for symptomatic hypotension
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
Hydronephrosis secondary to the above
UTI secondary to the above
Sepsis secondary to the above (tachycardia, leukocytosis, UTI) with hypotension (no evidence of shock, lactate <4 and never on vasopressors)
- s/p stent/stone procedure 04/21. repeat CT with ongoing fevers was performed 04/27: no acute abnormalities
- continue pain control
- Urine culture with multi-drug resistant E. Coli, Staph epi - continue Levaquin through 05/01 per ID
- 2nd set of blood cultures, 1/2 sets with budding yeast
- repeat Bcx (prior to Micafungin) - NGTD
- d/w ID and transition to Diflucan to complete 14 day total course
- check EKG this afternoon if QTC <500 then ok for DC
- OP Urology f/u in 2-3 weeks.
DM-II
- uncontrolled in setting of sepsis
- continue Lantus and Aspart now at home doses. continue SSI.
- A1C 7.2%
Hypertension / Hypotension
- Previously maintained on metoprolol for BP control and tachycardia. was resumed in hospital overnight 04/21 into 04/22 -> led to hypotension
- Now on midodrine TID per PCP
- Follow BP and adjust medications as needed.
- IVFs as above for sepsis.
Sinus tachycardia
- appropriate response to sepsis/fever
- monitor for changes in rhythm
- TSH low, FT4 normal - repeat TFTs in 4-6 weeks
Nonischemic myocardial injury from sinus tachycardia and sepsis
Peripheral Neuropathy
- Stable. Continue current home dose of gabapentin.
History of SVT s/p Ablation (remote)
Lumbar DDD
History of Gastric Sleeve
- Stable. No acute issues / complaints.
Hypokalemia - replete prn
Dilutional anemia
- follow CBC
- no evidence of active bleeding
DVT Prophylaxis: SCDs
Code Status: Full
Anticipated Discharge: Within 24 hours
Subjective/Interval History
-
Date of Service: April 29, 2024
no fevers
flank pain mild
Objective Data
-
Labs:
Laboratory Results
04/29/24
05:20
WBC 9.4
Hgb 8.3 L
Hct 25.6 L
Plt Count 233
Sodium 137
Potassium 3.6
Chloride 105
Carbon Dioxide 24
BUN 8
Creatinine 0.7
Glucose 91
Calcium 8.1 L
Vital Signs:
Vital Signs
Temp Pulse Resp BP Pulse Ox
98.5 F 98 19 101/61 98
04/29/24 11:08 04/29/24 11:08 04/29/24 11:08 04/29/24 11:08 04/29/24 11:08
I&O
04/28/24 04/29/24 04/30/24
06:59 06:59 06:59
Intake Total 1540 / 1540
Balance 1540 / 1540
Physical Exam
-
General: No Apparent Distress
HEENT: Normocephalic and Atraumatic
Respiratory: Negative Wheezes
Cardiac: Regular Rhythm and S1/S2
GI: Soft and Nontender
Musculoskeletal: No Edema
Neuro: AO x 3
Hematologic / Lymphatic: No Lymphadenopathy
Psych: Calm
Data Reviewed
-
Total Time Spent with Patient (in minutes): 41
Labs: Labs Reviewed by me
[2024-04-29 14:56] VITALS: BP 113/62
--- NOTE | 2024-04-29 15:03 | W.PN.UPDATE ---
Update Note
Progress Note Update
Qtc 441 on 3pm EKG. ok for DC. discussed with Dr. Martel
--- NOTE | 2024-04-29 15:05 | W.DS.TRANS ---
DC Summary - Qualifications Examiner
-
Discharge Instructions:
Discharge Diagnosis/Procedures obstructing ureterolithiasis, hydro nephrosis,
UTI/sepsis (bacterial and yeast infection)
Diet Diabetic, Carb Controlled
Activity As tolerated
Bathing Restrictions None
Other Services VN,PT,OT
Instructions:
Stand-Alone Forms:
Changes to Home Medications: No
Discharge Medications:
DC Medications w/original date entered in [facility]
clobetasol 0.05 % topical cream 1 applic topical DAILYPRN PRN eczema 10/14/23
gabapentin 800 mg tablet 800 mg PO BID Pain 10/14/23
insulin glargine 100 unit/mL (3 mL) subcutaneous pen (Lantus Solostar U-100 Insulin) 18 unit SC DAILY Diabetes 10/14/23
pantoprazole 40 mg tablet,delayed release 40 mg PO DAILY Gastrointestinal Issue 10/14/23
rosuvastatin 20 mg tablet 20 mg PO DAILY High Cholesterol 10/14/23
tirzepatide 7.5 mg/0.5 mL subcutaneous pen injector (Mounjaro) 7.5 mg SC WE Diabetes 10/14/23
cholecalciferol (vitamin D3) 25 mcg (1,000 unit) capsule (Vitamin D3) 25 mcg PO DAILY #30 caps 10/21/23
cyanocobalamin (vitamin B-12) 1,000 mcg tablet 1,000 mcg PO DAILY Supplement 04/20/24
insulin lispro 100 unit/mL subcutaneous pen (Humalog KwikPen (U-100) Insulin) 5 unit SC AC Diabetes 04/20/24
lidocaine 5 % topical ointment 1 applic topical DAILYPRN PRN back pain 04/20/24
midodrine 2.5 mg tablet 2.5 mg PO TID low blood pressure 04/20/24
acetaminophen 325 mg tablet 650 mg (2 x 325 mg) PO Q4HPRN PRN Mild Pain / Temp > 101 #60 tabs 04/29/24
fluconazole 200 mg tablet 400 mg (2 x 200 mg) PO DAILY #18 tabs 04/29/24
levofloxacin 750 mg tablet 750 mg PO DAILY #2 tabs 04/29/24
oxycodone 5 mg tablet 5 mg PO Q4HPRN PRN moderate to severe pain #15 tabs 04/29/24
phenazopyridine 200 mg tablet 200 mg PO TIDPRN PRN dysuria #20 tabs 04/29/24
tamsulosin 0.4 mg capsule 0.4 mg PO DAILY #30 caps 04/29/24
Home Medication Changes
Pending Results: No
Total time spent discharging patient (in min): 42
--- NOTE | 2024-04-29 15:38 | W.PN.ID1 ---
Date of Service
Date of Service: April 29, 2024
Today's Communication
- c/w levofloxacin for a 10 day total course (04/22 to 05/01)
- spoke with lab, ETA on ID of the sole isolate could be prolonged, switched to fluconazole 400 mg to complete 14 day course of therapy
- repeat EKG at 2 PM with normal QTc
- Following repeat blood cultures x 2 neg to date (obtained before initiation of antifungal therapy.)
stable for dc, if a resistant yeast is isolated or patient develops relapse of symptoms will recommend readmission. reviewed with patient who reports she understands and desires discharge
Assessment / Plan
Fungemia, source
Right Pyelonephritis
Funguria
cross-fused kidneys with single ureter
Renal Stones
KATEY
Recommendations:
- c/w levofloxacin for a 10 day total course (04/22 to 05/01)
- spoke with lab, ETA on ID of the sole isolate could be prolonged, switched to fluconazole 400 mg to complete 14 day course of therapy
- repeat EKG at 2 PM with normal QTc
- Following repeat blood cultures x 2 neg to date (obtained before initiation of antifungal therapy.)
stable for dc, if a resistant yeast is isolated or patient develops relapse of symptoms will recommend readmission. reviewed with patient who reports she understands and desires discharge
����������������������������������������������������������
Chief Complaint
-: Bacteremia (Fungemia) and Other (pyelonephritis; Fungemia)
Subjective / Review of Systems
afebrile
bp stable
requesting discharge
reports some tenderness over the right groin which is stable, overwise no complaints
Vital Signs / Physical Exam
Vital Signs
Vital Signs
Temp Pulse Resp BP Pulse Ox
98.6 F 101 18 113/62 99
04/29/24 14:56 04/29/24 14:56 04/29/24 14:56 04/29/24 14:56 04/29/24 14:56
Physical Exam
Constitutional: No Acute Distress
Cardiovascular: Regular Rate and S1/S2; Negative Murmur or Rub
Pulmonary: Clear and Symmetric; Negative Wheezes or Rales
Gastrointestinal: Soft, Non Tender, Non Distended and Normal Bowel Sounds
Genito-Urinary: Negative Suprapubic Tenderness
Skin: Warm and Dry; Negative Rash or Jaundice
Objective Data
Lab Data
Lab Results
04/29/24 05:20
04/29/24 05:20
PT 15.3 Sec (11.4-14.6) H 04/22/24 07:49
INR 1.16 04/22/24 07:49
APTT 29.4 Sec (23.4-35.0) 04/22/24 07:49
Estimated Creat Clear 82 ml/min 04/29/24 05:20
Lactic Acid 1.3 mmol/L (0.7-2.0) 04/22/24 07:49
Total Bilirubin 0.7 mg/dl (0.2-1.3) 04/22/24 07:49
AST 19 U/L (14-36) 04/22/24 07:49
ALT 11 U/L (0-35) 04/22/24 07:49
Alkaline Phosphatase 88 U/L (38-126) 04/22/24 07:49
Most recent labs reviewed.
Micro Results:
04/25/24 11:40 Blood Culture - Preliminary
Blood/Venous No Growth in 4 days- Final report to follow
04/25/24 10:40 Blood Culture - Preliminary
Blood/Venous No Growth in 4 days- Final report to follow
04/22/24 14:51 Blood Culture - Final
Blood/Venous Yeast
Gram Stain - Final
04/22/24 13:49 Blood Culture - Final
Blood/Venous No Growth - Final Report
04/21/24 07:54 Blood Culture - Final
Blood/Venous No Growth - Final Report
04/20/24 16:29 Blood Culture - Final
Blood/Venous No Growth - Final Report
04/20/24 18:14 Urine Culture - Final
Urine Escherichia coli
Staphylococcus epidermidis
Leuconostoc
Yeast
04/22/24 13:06 Urine Culture - Final
Urine NO GROWTH
04/20/24 11:53 Influenza Types A & B (ELEANOR) - Final
Nasal Swab Negative for Influenza A & B, NAAT
Negative results must be combined with clinical observations
and patient history.
Nucleic Acid Amplification test (NAAT)performed on the
[facility] platform.
Care Review
Plan reviewed with: Physician (Dr Wooten- nawaf; lab - ETA of [employer] ID)
--- NOTE | 2024-04-29 16:08 | VNURNOTE ---
Home Health Liaison spoke with patient to discuss [facility] nurse/therapy, visits, schedule and homebound status. Patient is agreeable and understands that visits at home will be 2-3 x per week to assess and teach medical management. She is familiar
with [facility] and has had our services in the past.
Patient is aware that [facility] will contact them for start of care in 1-2 days after discharge from .
[facility] referral accepted in [facility].
[2024-04-29 16:43] LABS: Glucose - Point of Care 62 mg/dl (70-99)
[2024-04-29 17:21] LABS: Glucose - Point of Care 119 mg/dl (70-99)
[2024-04-29] MEDS: NOVOLOG FLEXPEN SC (17:40)
== END 2024-04-29 18:06 | disposition home health service (06) | DRG 854 ==
LOC: 3 WEST ACU 19:56
PROVIDERS: Nurse Practitioner Family; Student in an Organized Health Care Education/Training Program; ADMITTING PHYSICIAN Hospitalist; ATTENDING PHYSICIAN Internal Medicine; CONSULT PHYSICIAN Specialist; CONSULT PHYSICIAN Student in an Organized Health Care Education/Training Program; EMERGENCY PHYSICIAN Student in an Organized Health Care Education/Training Program; FAMILY PHYSICIAN Internal Medicine
PROC: 0T768DZ Dilation of Right Ureter with Intraluminal Device, Via Natural or Artificial Opening Endoscopic (ICD-10-PCS; 2024-04-21)
PROC: 0TC68ZZ Extirpation of Matter from Right Ureter, Via Natural or Artificial Opening Endoscopic (ICD-10-PCS; 2024-04-21)
PROC: BT1D1ZZ Fluoroscopy of Right Kidney, Ureter and Bladder using Low Osmolar Contrast (ICD-10-PCS; 2024-04-21)
DX: B37.7 Candidal sepsis (principal); I5A Non-ischemic myocardial injury (non-traumatic); N13.6 Pyonephrosis; N20.1 Calculus of ureter; N17.9 Acute kidney failure, unspecified; Q63.1 Lobulated, fused and horseshoe kidney; Z87.442 Personal history of urinary calculi; R32 Unspecified urinary incontinence; E11.40 Type 2 diabetes mellitus with diabetic neuropathy, unspecified; I10 Essential (primary) hypertension; I95.1 Orthostatic hypotension; M51.369 Other intervertebral disc degeneration, lumbar region without mention of lumbar back pain or lower extremity pain; Z79.4 Long term (current) use of insulin; Z98.84 Bariatric surgery status; Q63.2 Ectopic kidney; E87.6 Hypokalemia; D64.9 Anemia, unspecified
CPT/HCPCS: 71046; 74177; 74420; 76000; 80048; 80053; 81003; 81015; 82607; 82728; 82746; 82962; 83036; 83540; 83550; 83605; 83690; 84439; 84443; 84484; 85025; 85027; 85610; 85730; 86850; 86900; 86901; 87040; 87077; 87086; 87147; 87186; 87205; 87502; 87811; 93005; 96361; 96374; 96375; 97116; 97163; 97166; 97530; 99285; C1894; C2617; Q9967

== ENCOUNTER → 2024-05-09 10:08 | Outpatient (REF) | payer MEDICARE, SELFPAY | LOC: REG 10:08 | PROVIDERS: ATTENDING PHYSICIAN Student in an Organized Health Care Education/Training Program; FAMILY PHYSICIAN Internal Medicine | DX: B37.7 Candidal sepsis (principal) | CPT/HCPCS: 36415; 87040 ==

== ENCOUNTER 2024-05-12 19:56 | Inpatient (IN) | payer MEDICARE, SELFPAY ==
[2024-05-12 13:49] VITALS: BP 142/86
[2024-05-12 14:13] LABS: % Basophils 0.6 % (0-2); % Immature Granulocytes 0.4 % (0-0.5); % Lymphocytes 33.6 % (20.5-51.1); % Monocytes 5.8 % (1.7-9.3); % Neutrophils 54.6 % (42.2-75.2); Absolute Basophils 0.1 10^3/uL (0-0.2); Absolute Eosinophils 0.4 10^3/uL (0-0.7); Absolute Lymphocytes 2.7 10^3/uL (1.2-3.4); Absolute Monocytes 0.5 10^3/uL (0.1-0.6); Absolute Neutrophils 4.5 10^3/uL (1.4-6.5); Hemoglobin 9.6 g/dL (12.0-16.0); Mean Corpuscular Hgb 27.1 pg (27.0-31.0); Mean Corpuscular Volume 84.7 fL (81.0-99.0); Mean Platelet Volume 11.6 fL (7.4-10.4); Nucleated Red Blood Cells % 0 %; Platelet Count 204 10^3/uL (130-400); Red Blood Cell Count 3.54 10^6/uL (4.20-5.40); Red Cell Dist. Width 14.3 % (11.5-14.5); White Blood Cell Count 8.2 10^3/uL (4.8-10.8)
[2024-05-12 14:28] LABS: ALT (SGPT) 20 U/L (0-35); AST (SGOT) 26 U/L (14-36); Albumin 3.5 g/dl (3.5-5.0); Alkaline Phosphatase 127 U/L (38-126); Blood Urea Nitrogen 14 mg/dl (7-17); Calcium 9.2 mg/dl (8.4-10.2); Carbon Dioxide 26 mmol/L (22-30); Chloride 105 mmol/L (98-107); Glucose 196 mg/dl (70-99); Potassium 4.4 mmol/L (3.5-5.1); Sodium 139 mmol/L (135-145); Total Bilirubin 0.4 mg/dl (0.2-1.3); Total Protein 7.7 g/dl (6.3-8.2); eGFR > 60.00
--- NOTE | 2024-05-12 16:40 | ED.GENMED ---
History of Present Illness
General
Chief Complaint: Flank Pain
Source: patient
Exam Limitations: none
Time Seen by Provider: 05/12/24 16:26
Nursing documentation reviewed up to this point in time: agreed with
History of Present Illness
History of Present Illness:
Patient to ED with complaint of right flank pain. Pain started 2 days ago and contines. Denies n/v/d. Had kidney stone in March, stent placed. Pain feels the same. ALso notes dizziness when standing. Denies fver/chills, n/v/d.
Past History
Past History
ED Past Medical History: Arrthythmia (History of SVT), Hypercholesterolemia and IDDM
ED Past Surgical History: Cardiac (Cardiac ablation in 2003) and Other (Spinal fusion in 1988, tubal ligation and 1999, a D&C in 2001,)
Social History
Tobacco: Non-smoker
Alcohol: None
Drug: None
Personal:
Living: with family
Employment: Employed
Family History
Family History: Diabetes and Hypertension
Review of Systems
Review of Systems
Allergies reviewed?: Yes
All Other Systems: ROS reviewed and negative except as documented in HPI and ROS
Constitutional: Reports no symptoms
EENT: Reports no symptoms
Respiratory: Reports no symptoms
Cardiac: Reports no symptoms
ABD/GI: Reports abdominal pain (right flank radiating to RLQ)
: Reports flank pain
Musculoskeletal: Reports no symptoms
Skin: Reports no symptoms
Neurological: Reports dizzy
Psychiatric: Reports no symptoms
Phy Exam
General Physical Exam
General Presentation: mild distress
General age: appears stated age
General Skin: warm and dry
General Habitus: normal
General Mental: alert
Cardiovascular Exam
Cardiovascular Exam: regular rate/rhythm and no edema
Gastrointestinal Exam
Gastrointestinal Exam: normal bowel sounds, non tender, soft, no organomegaly, no pulsatile mass, non distended and no cva tenderness
Musculoskeletal Exam
Musculoskeletal Exam: full ROM and neuro vasc intact
Skin Exam
Skin Exam: normal color, warm/dry and no rash
Psychiatric Exam
Psychiatric Exam: normal mood/affect
Course
Orders/Labs/Results
Orders:
Orders
05/12/24 13:52
Electrocardiogram (*1) Urgent
Reason for Study: Vertigo / Dizzy
EKG- Treatment ONCE
05/12/24 14:03
Complete Blood Count/With Diff Urgent
Comprehensive Metabolic Panel Urgent
05/12/24 Dinner
1800 calorie (15 carb) Diabetic
At Your Request: Full Participation
05/12/24 16:40
CT Abd/pel Without Iv Or Oral Urgent
Comment:
Reason For Exam: right flank pain
Orthostatic VS- Treatment ONCE
05/12/24 17:05
Urinalysis Reflex To Culture Urgent
Date Specimen was Collected: 05/12/24
Time Specimen was Collected: 17:01
Urine Microscopic Reflex Cult Urgent
Urine Culture Urgent
LISSETT Source: U
Specimen Description:
Date Specimen was Collected: 05/12/24
Time Specimen was Collected: 17:01
05/12/24 18:36
Piperacillin/Tazo 3.375 Gram [Zosyn] 3.375 gram in 50 ml IV NOW
05/12/24 18:41
HYDROmorphone [Dilaudid] 0.25 mg IV NOW STA
05/12/24 18:42
0.9% Sodium Chloride 1000 ml [Nss] 1,000 ml IV BOLUS
05/12/24 19:02
Blood Culture Q30M
LIS[place]T Source: Blood/Venous
Specimen Description:
Blood Culture Q30M
LIS[place]T Source: Blood/Venous
Specimen Description:
05/12/24 19:15
Fluconazole [Diflucan] 800 mg PO NOW STA
05/12/24 19:30
Admit/Transfer Patient As Directed
Co-Sign Provider:
Level of Care: Inpatient admission
Assign to:: Medical/Surgical
Physician / Group: hospitalist
Diagnosis: pyelonephritis
Reason for Hospitalization: pyelonephritis
Expected length of stay greater than two midnights?: Yes
ELOS- Estimated Length of Stay in days: 2
I certify the patient meets the requirements for IP care: Yes
PRN Pain Medication Management As Directed
May give lesser potent ordered pain med per pt: Yes
preference::
Protocol:: Medication orders for pain may be administered in a
manner that supports deferring to patient preference
when the pt is:
- Requesting an ordered lesser potent pain medication.
Least to most potent pain medications are defined
as: acetaminophen < NSAID < tramadol < opioids
(morphine, oxycodone, hydromorphone).
- Requesting a lesser dose of the same medication IF
ORDERED.
- Requesting a less intrusive route of administration
if both routes are prescribed by the provider (PO <
IV).
05/12/24 19:32
Code Status As Directed
Resuscitation Status: Full Code
05/12/24 20:57
0.9% Sodium Chloride 1000 ml [Nss] 1,000 ml IV 100 mls/hr
Acetaminophen [Tylenol] 650 mg PO Q4HPRN PRN
Bisacodyl [Dulcolax] 10 mg RECTAL [id number] PRN
Clobetasol Propionate [Clobetasol Propionate 0.05% Cream] 1 applic TOPICAL DAILYPRN PRN
Docusate W/Senna [Senokot-S] 1 tablet PO BIDPRN PRN
HYDROmorphone [Dilaudid] 0.5 mg IV Q4HPRN PRN
Ondansetron Injectable [Zofran] 4 mg IV Q6HPRN PRN
Oxycodone [Roxicodone] 5 mg PO Q4HPRN PRN
Polyethylene Glycol Powder [Miralax] 17 grams PO DAILYPRN PRN
05/12/24 20:57
INFECTIOUS DISEASE CONSULT Routine
Consulting Provider: Joslyn Martel
Was physician already notified: Yes
Reason for consult: pyelonephritis, h/o mdr ecoli, candidemia
Activity As Directed
Activity Level: With Assistance
Bedside Glucose Monitoring As Directed
Frequency: AC&HS
Intake/ Output As Directed
Frequency: Per unit guidelines
Vital Signs As Directed
Frequency: Per unit guidelines
Pulse Ox/spot Check [RESP] Routine
Quantity: 1
DX Deep Vein Thrombosis Video Routine
05/12/24 21:00
Gabapentin [Neurontin] 800 mg PO BID
05/12/24 21:03
Lidocaine [Lidocaine 4% Patch] 1 patch TOPICAL DAILYPRN PRN
05/13/24 02:00
Piperacillin/Tazo 3.375 Gram [Zosyn] 3.375 gram in 50 ml IV Q6H
05/13/24 06:00
Basic Metabolic Panel IN AM
Complete Blood Count/No Diff IN AM
05/13/24 07:30
Insulin Aspart Corrective Low [Novolog Flexpen-Low Resistance] See Protocol SC AC
Insulin Aspart Pen [Novolog Flexpen] 5 units SC AC
05/13/24 08:00
Cyanocobalamin [Vitamin B-12] 1,000 mcg PO Q48H
Fluconazole [Diflucan] 800 mg PO DAILY
Midodrine [ProAmatine] 2.5 mg PO TID @ 0800,1200,1700
Pantoprazole [Protonix] 40 mg PO DAILY
Rosuvastatin Calcium [Crestor] 20 mg PO DAILY
Tamsulosin [Flomax] 0.4 mg PO DAILY
insulin glargine [Lantus Solostar U-100 Insulin] 15 unit SC DAILY
05/13/24 18:00
Enoxaparin Sodium [Lovenox] 40 mg SC QPM
Abnormal Lab Results
05/12/24 05/12/24
14:03 17:05
RBC 3.54 L 10^6/uL
(4.20-5.40)
Hgb 9.6 L g/dL
(12.0-16.0)
Hct 30.0 L %
(37.0-47.0)
MCHC 32.0 L g/dL
(33.0-37.0)
MPV 11.6 H fL
(7.4-10.4)
Glucose 196 H mg/dl
(70-99)
Alkaline Phosphatase 127 H U/L
(38-126)
Leukocyte Esterase Rfl 3+ A
(Negative)
Urine RBC 3-6 A /HPF
(0-2)
Urine WBC (Reflex) 40-50 A /HPF
(0-5)
Urine Bacteria (Reflex) Few A
(Negative)
Urine Albumin (Reflex) 1+ A
(Neg - Trace)
05/12/24 14:03
05/12/24 14:03
Vital Signs
Initial and Last Documented VS:
Initial Vital Signs
Temp Pulse Resp BP Pulse Ox
98 F 105 16 142/86 99
05/12/24 13:49 05/12/24 13:49 05/12/24 13:49 05/12/24 13:49 05/12/24 13:49
Last Documented Vital Signs
Temp Pulse Resp BP Pulse Ox
98.2 F 111 18 166/79 97
05/12/24 20:50 05/12/24 20:50 05/12/24 20:50 05/12/24 20:50 05/12/24 20:50
*Radiology
Radiology exam reviewed: radiology read reviewed
*Pulse Oximetry
Patient hypoxic: no
*Critical Care Note
Total Time (30-74mins, 75-104mins- exclusive of procedures): Not Applicable
Update Note
Update Note:
Patient to ED with return of right flank pain. SHe was admitted here last month for an obstructing stone which required stenting, UTI and blood cultures pos for sole. Pain today feels the same as last event. CT today neg for stone. SHe
remains afebrile. Dr. Palma involved, recommends admission. Requesting blood cultures x 2 , zosyn, fluconazole 800mg daily. Meds started in ED.Blood and urine culture results pending. Will admit to hospitalist service.
ED Attending Note
-
Portions of this chart may have been created with voice recognition software.� Occasional wrong word or��sound alike� substitutions may have occurred due to the inherent limitations of voice recognition software.
Discharge Plan
Departure
Patient Disposition: Admit
Date of Disposition: 05/12/24
Time of Disposition: 18:48
Presentation/result/management discussed w/ accepting MD/DO: Hospitalist
Patient with high blood pressure during this ER visit?: No
Condition: Fair
Covid-19: Not Applicable
Discharge Problem:
Acute flank pain
Interventions
Interventions:
*Risk Screen - Suicide Last Done: 05/12/24 13:52
*General Assessment Last Done: 05/12/24 16:50
*Neglect/Abuse Screening Last Done: 05/12/24 13:52
*ED- Fall Risk Assessment Last Done: 05/12/24 20:54
*ED COVID-19 Vaccine History Last Done: 05/12/24 16:50
*Nursing Disposition Last Done: 05/12/24 20:54
JV-Qtgcac-Pqcrifqskp Assessment Last Done: 05/12/24 18:41
Discharge Date and Time
Discharge Date/Time: 05/12/24 20:25
[2024-05-12 16:46] VITALS: BP 138/79
[2024-05-12 16:47] VITALS: BP 128/76; BP 130/72; BP 138/79; PULSE 100; PULSE 101; PULSE 115
[2024-05-12 17:32] LABS: Urine Albumin 1+ (Neg - Trace); Urine Bilirubin Negative (Negative); Urine Character Clear (Clear); Urine Color Yellow; Urine Glucose Negative (Negative); Urine Ketone Negative (Negative); Urine Leukocyte 3+ (Negative); Urine Nitrite Negative (Negative); Urine Occult Blood Negative (Negative); Urine Urobilinogen Negative (Neg - 1+)
[2024-05-12 18:22] LABS: Urine Squamous Cell 16-20 /LPF (Few); Urine White Cell 40-50 /HPF (0-5)
[2024-05-12 18:23] LABS: Urine Bacteria Few (Negative)
[2024-05-12] MEDS: ZOSYN 50 IV (19:12)
[2024-05-12] MEDS: NSS 1000 IV ×2 (19:12→21:15)
[2024-05-12] MEDS: DILAUDID 0.25 MG IV (19:13)
--- NOTE | 2024-05-12 19:13 | HPS.HSE ---
Family Physician
-
Family Physician: Denise Johnson
Chief Complaint
-
Flank pain
History of Present Illness
This is a 63-year-old female with past medical history significant for insulin-dependent diabetes, hyperlipidemia, hypertension, nephrolithiasis recently admitted with 2 fungal UTI presenting to the emergency department with flank pain.
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 She also had
evidence of sepsis. She underwent stent and stone procedure and ultimately grew multidrug-resistant E. coli and staph as well as blood cultures that grew yeast for which she was treated with Levaquin until April 30. And then micafungin with
transition to a Diflucan to complete 14-day antifungal course. She has been following with infectious disease and urology.
She started having right-sided flank pain and right groin pain about 4 days ago. Associated with nausea but no vomiting. She denies any fevers or chills. She denies dysuria, hematuria increased frequency or hesitancy. She denies urgency. She
reports that anytime she moves or stands she does feel worsening flank pain that seems to be radiating to her back and neck. She denies feeling dizzy or short of breath. She denies any chest pain palpitations lightheadedness.
She was followed up by visiting nurse today who recommended she come to the emergency department after evaluation.
In the emergency department today she was afebrile, blood pressure was 138/70 with a pulse of 98. CBC was unremarkable. Electrolyte BUN/creatinine were all within the normal range. UA was positive with 3+ leukocyte Estrace pyuria and few
bacteria. A CT of the abdomen pelvis without contrast shows right ureteral stent with no evidence of calculus along the course of the right ureteral stent. Multifocal nephroliths in the lower pole of the right moiety. No evidence of
nephrolithiasis or ureteral calculus involving the left moiety.
Medical History
Past Medical History
Past Medical History: Reports Other
Additional Past Medical History:
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
DM-II
Hypertension / Orthostatic Hypotension
SVT (s/p ablation)
Pericardial Cyst
Nephrolithiasis
Lumbar DDD
Past Surgical History: Reports Other
Additional Past Surgical History:
Tubal Ligation
Gastric Sleeve
SVT Ablation
Lithotripsy
Lumbar Fusion
Social History
Tobacco: Non-smoker
Alcohol: None
Drug: None
Family History
Family History: Diabetes and Hypertension
Allergies / Home Medications
Allergies reflects when Allergies were last updated in [facility].
Home Medications with original date entered in [facility]
Allergy/Medication List:
Allergies
Allergy/AdvReac Type Severity Reaction Status Date / Time
No Known Allergies Allergy Verified 04/20/24 11:47
Home Medications
clobetasol 0.05 % topical cream 1 applic topical DAILYPRN PRN eczema 10/14/23
gabapentin 800 mg tablet 800 mg PO BID Pain 10/14/23
insulin glargine 100 unit/mL (3 mL) subcutaneous pen (Lantus Solostar U-100 Insulin) 18 unit SC DAILY Diabetes 10/14/23
pantoprazole 40 mg tablet,delayed release 40 mg PO DAILY Gastrointestinal Issue 10/14/23
rosuvastatin 20 mg tablet 20 mg PO DAILY High Cholesterol 10/14/23
tirzepatide 7.5 mg/0.5 mL subcutaneous pen injector (Mounjaro) 7.5 mg SC WE Diabetes 10/14/23
cholecalciferol (vitamin D3) 25 mcg (1,000 unit) capsule (Vitamin D3) 25 mcg PO DAILY #30 caps 10/21/23
cyanocobalamin (vitamin B-12) 1,000 mcg tablet 1,000 mcg PO DAILY Supplement 04/20/24
insulin lispro 100 unit/mL subcutaneous pen (Humalog KwikPen (U-100) Insulin) 5 unit SC AC Diabetes 04/20/24
lidocaine 5 % topical ointment 1 applic topical DAILYPRN PRN back pain 04/20/24
midodrine 2.5 mg tablet 2.5 mg PO TID low blood pressure 04/20/24
acetaminophen 325 mg tablet 650 mg (2 x 325 mg) PO Q4HPRN PRN Mild Pain / Temp > 101 #60 tabs 04/29/24
fluconazole 200 mg tablet 400 mg (2 x 200 mg) PO DAILY #18 tabs 04/29/24
levofloxacin 750 mg tablet 750 mg PO DAILY #2 tabs 04/29/24
oxycodone 5 mg tablet 5 mg PO Q4HPRN PRN moderate to severe pain #15 tabs 04/29/24
phenazopyridine 200 mg tablet 200 mg PO TIDPRN PRN dysuria #20 tabs 04/29/24
tamsulosin 0.4 mg capsule 0.4 mg PO DAILY #30 caps 04/29/24
Review of Systems
-
History Source: Patient
A 12 point ROS was completed and negative except as noted: Yes
Constitutional: Reports Fever, Fatigue and Chills
EENT: Reports No Symptoms
Respiratory: Reports No Symptoms
Cardiac: Reports No Symptoms
Abdomen/GI: Reports No Symptoms
: Reports Dysuria, Frequency, Flank Pain and Incontinence; Denies Bleeding
Musculoskeletal: Reports No Symptoms
Skin: Reports No Symptoms
Neurological: Reports No Symptoms
Endocrine: Reports No Symptoms
Hematologic/Lymphatic: Reports No Symptoms
Psych: Reports No Symptoms
Physical Exam
Vital Signs
Vital Signs
Temp Pulse Resp BP Pulse Ox
98 F 98 18 138/79 99
05/12/24 13:49 05/12/24 16:46 05/12/24 16:46 05/12/24 16:46 05/12/24 16:46
Physical Exam
General: Well Developed, Well Nourished, No Apparent Distress, Comfortable and Conversant
HEENT: Other (Dry MM. Neck supple.)
Respiratory: Clear
Cardiac: S1/S2 and Tachycardia; No Murmur
GI: Soft, Non Tender, Non Distended and Normal Bowel Sounds
Rectal: Deferred by Provider
Genito-urinary: Costovertebral angle tend (right sided)
Musculoskeletal: No Clubbing, No Cyanosis and No Edema
Skin: Warm
Neuro: AO x 3
Hematologic/Lymphatic: No Lymphadenopathy
Psych: Calm
Laboratory Results
-
05/12/24 14:03
05/12/24 14:03
Laboratory Results
Total Bilirubin 0.4 mg/dl (0.2-1.3) 05/12/24 14:03
AST 26 U/L (14-36) 05/12/24 14:03
ALT 20 U/L (0-35) 05/12/24 14:03
Alkaline Phosphatase 127 U/L (38-126) H 05/12/24 14:03
Data Reviewed
-
CT Scan: Report Reviewed by me
Lab Data: Labs Reviewed by me
Old Records: Reviewed
Impression/Plan
-
IMPRESSION:
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
right sided flank pain. She is afebrile and hemodynamically stable. She has no leukocytosis. UA is actually quite positive with 3+ leukocyte esterase and numerous WBCs. Few bacteria. The CT of the abdomen pelvis shows her stent is in place and
in appropriate position. No hydronephrosis. Renal function is normal.
PLAN:
1. Pyelonephritis -patient with suspected pyelonephritis without sepsis. She has history of multidrug resistance E. coli as well as yeast infection during admission in early April. ID aware and is made recommendations for patient management.
-Admit to [facility]
-Urine culture sent, blood cultures
-Starting IV Zosyn and Diflucan
-Pain control, antiemetics, iv fluids.
- continue tamsulosin
- ID consult
2. DM II - On insulin lantus 18 am and humalog 5 ac
- continue lantus in am, 15
- humalog 5 ac
- sliding scale
DVT PPX - lovenox sq
Code status - Full Code
[2024-05-12 20:03] LABS: Glucose - Point of Care 65 mg/dl (70-99)
[2024-05-12 20:05] VITALS: BP 145/69
[2024-05-12] MEDS: DIFLUCAN 800 MG PO (20:13)
[2024-05-12 20:37] LABS: Glucose - Point of Care 86 mg/dl (70-99)
[2024-05-12 20:50] VITALS: BP 166/79; BMI 24.4
[2024-05-12] MEDS: NEURONTIN 800 MG PO (21:16)
--- NOTE | 2024-05-12 21:30 | PTCARENOTE ---
Rec'd patient from ER. stable vitals. AAOx3. Mild right flank/ abdomen pain. POC reviewed with patient.
[2024-05-12 21:55] LABS: Glucose - Point of Care 165 mg/dl (70-99)
[2024-05-12 23:45] VITALS: BP 130/77
[2024-05-13] MEDS: ZOSYN 50 IV ×3 (01:39→13:02)
[2024-05-13 04:08] LABS: Glucose - Point of Care 98 mg/dl (70-99)
[2024-05-13] MEDS: NSS 1000 IV (06:34)
[2024-05-13 07:14] VITALS: BP 129/75
[2024-05-13 07:14] LABS: Hemoglobin 8.1 g/dL (12.0-16.0); Mean Corp Hgb Conc. 31.2 g/dL (33.0-37.0); Mean Corpuscular Hgb 26.7 pg (27.0-31.0); Mean Corpuscular Volume 85.8 fL (81.0-99.0); Mean Platelet Volume 11.3 fL (7.4-10.4); Platelet Count 246 10^3/uL (130-400); Red Blood Cell Count 3.03 10^6/uL (4.20-5.40); Red Cell Dist. Width 14.4 % (11.5-14.5); White Blood Cell Count 6.8 10^3/uL (4.8-10.8)
[2024-05-13 07:25] LABS: Blood Urea Nitrogen 10 mg/dl (7-17); Calcium 8.8 mg/dl (8.4-10.2); Carbon Dioxide 25 mmol/L (22-30); Chloride 105 mmol/L (98-107); Estimated Creatinine Clearance 82 ml/min; Glucose 115 mg/dl (70-99); Potassium 3.8 mmol/L (3.5-5.1); Sodium 140 mmol/L (135-145); eGFR > 60.00
[2024-05-13 08:24] LABS: Glucose - Point of Care 108 mg/dl (70-99)
--- NOTE | 2024-05-13 08:26 | VNURNOTE ---
Chart reviewed. Patient is current with [facility] nursing. Will continue to follow hospital course and DC plans.
[2024-05-13] MEDS: NOVOLOG FLEXPEN-LOW RESISTANCE SC ×3 (08:39→17:00)
[2024-05-13] MEDS: NOVOLOG FLEXPEN SC ×3 (09:14→17:00)
[2024-05-13] MEDS: LANTUS 0.15 UNITS SC (09:15)
[2024-05-13] MEDS: CRESTOR 20 MG PO (09:17)
[2024-05-13] MEDS: DIFLUCAN 800 MG PO (09:17)
[2024-05-13] MEDS: NEURONTIN 800 MG PO ×2 (09:17→21:26)
[2024-05-13] MEDS: ProAmatine 2.5 MG PO ×3 (09:17→16:56)
[2024-05-13] MEDS: FLOMAX 0.4 MG PO (09:17)
[2024-05-13] MEDS: VITAMIN B-12 1000 MCG PO (09:18)
[2024-05-13] MEDS: PROTONIX 40 MG PO (09:18)
[2024-05-13] MEDS: ROXICODONE 5 MG PO ×2 (09:27→21:27)
--- NOTE | 2024-05-13 10:58 | W.PN.HOSP.TC ---
Today's Communication/Plan
-
IV abx
anti-fungal
ID recs
stop IVF later today
Assessment / Plan
Assessment / Plan
IMPRESSION:
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
right sided flank pain. She is afebrile and hemodynamically stable. She has no leukocytosis. UA is actually quite positive with 3+ leukocyte esterase and numerous WBCs. Few bacteria. The CT of the abdomen pelvis shows her stent is in place and
in appropriate position. No hydronephrosis. Renal function is normal.
PLAN:
Suspected Pyelonephritis
- She has history of multidrug resistance E. coli as well as yeast infection during admission in early April.
- s/p stent/stone procedure 04/21.
-Urine culture sent, blood cultures
-Starting IV Zosyn and Diflucan
-Pain control, antiemetics, iv fluids.
- continue tamsulosin
- ID consult
DM II - On insulin lantus 18 am and humalog 5 ac
- continue lantus in am, 15
- humalog 5 ac
- sliding scale. A1C 7.2%
Peripheral Neuropathy
- Stable. Continue current home dose of gabapentin.
History of SVT s/p Ablation (remote)
Lumbar DDD
History of Gastric Sleeve
- Stable. No acute issues / complaints.
Chronic hypotension
-on low dose midodrine
-BP at home stable.
DVT PPX - lovenox sq
Code status - Full Code
Anticipated Discharge: > 48 hours
Subjective/Interval History
-
Date of Service: May 13, 2024
states not feeling well overall
states of R flank pain
Appetite is good
denies hematuria
Objective Data
-
Labs:
Laboratory Results
05/13/24
06:27
WBC 6.8
Hgb 8.1 L
Hct 26.0 L
Plt Count 246 D
Sodium 140
Potassium 3.8
Chloride 105
Carbon Dioxide 25
BUN 10
Creatinine 0.7
Glucose 115 H
Calcium 8.8
Vital Signs:
Vital Signs
Temp Pulse Resp BP Pulse Ox
98.6 F 95 18 129/75 98
05/13/24 07:14 05/13/24 07:14 05/13/24 07:14 05/13/24 07:14 05/13/24 07:14
I&O
05/12/24 05/13/24 05/14/24
06:59 06:59 06:59
Intake Total 0 / 0
Balance 1680 / 1680
Physical Exam
-
General: Well Developed and No Apparent Distress
HEENT: Normocephalic, Atraumatic and Moist Mucous Membranes
Respiratory: Clear to Auscultation
Cardiac: Regular Rhythm and S1/S2; Negative Murmur, Rub or Gallop
GI: Soft, Nontender, Nondistended and Normal Bowel Sounds; Negative Organomegaly
Rectal: Deferred by Provider
Musculoskeletal: No Clubbing, No Cyanosis and No Edema
Skin: Warm; Negative Rash
Neuro: Awake, Alert, Oriented, AO x 3, No Motor Deficits and Nonfocal/Grossly Intact
Psych: Calm
[2024-05-13 12:17] LABS: Glucose - Point of Care 111 mg/dl (70-99)
--- NOTE | 2024-05-13 12:51 | CON.ID ---
Consultation
-
Date/Time Consultation Requested: 05/12/24 20:57
Date/Time Consultation Performed: 05/13/24 13:57
Requesting Provider: Dr Padilla
Performing Provider: Dr Martel
Reason for Consultation: pyelonephritis, h/o mdr ecoli, candidemia
Chief Complaint / Past History
Chief Complaint
right flank pain with radiation to the groin
History of Present Illness
Ms Pratt is a 63 year old female with history of cross-fused kidney with single ureter, renal stones, DM2 who presented here on 04/20 for R flank and groin pain. Then on 04/19 developed R lower back pain that eventually migrated to the anterior
groin. New dysuria and urinary incontinence noted. No fevers, chills, nausea, vomiting, diarrhea or hematuria. She was taken 04/21 for right lithotripsy, ureteral stent placement; no stone initially in bladder, no urine from the right ureter, stone
was ensconced - stone broken into smaller pieces, pyuria noted and drained both through and around the stent, 04/20 urine culture 100K mixed liliam. she was initially started on ceftriaxone, then when fevers noted broadened to zosyn. She was found
to be candidemic which eventually resulted with c glabrata (susceptible dose dependant to fluconazole) - it was not sustained. Initial urine culture with E coli, s epi, leuconostoc and yeast. She was discharged with fluconazole 400 mg PO qday and
levofloxacin for a 10 day total course (04/22 to 05/01). Tony andersen was IDd and patient was advised to get repeat outpatient blood culture which has now finalized negative and start fluconazole 800 mg PO qday which she started 05/09. Then 05/10 she
developed relapse of cva tenderness and marked groin pain. No fevers or chills. She spoke with her visiting RN and was advised to come here, she presented here 05/12 and UA showed pyuria with 40-50 wbc/hpf, CT without contrast showed stent in
position. A repeat urine culture, after three days of high dose fluconazole was negative, repeat blood cultures x2 were done and are no growth to date.
Past History
Additional Past Medical History:
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
DM-II
Hypertension / Orthostatic Hypotension
SVT (s/p ablation)
Pericardial Cyst
Nephrolithiasis
Lumbar DDD
Additional Past Surgical History:
Tubal Ligation
Gastric Sleeve
SVT Ablation
Lithotripsy
Lumbar Fusion
Allergy History:
No Known Allergies Allergy (Verified 04/20/24 11:47)
Medications Reviewed: Yes
Social History
Tobacco: Non-Smoker
Alcohol: None
Drug: None
Family History
Family History: Not Pertinent
Review of Systems
Review of Systems
General: Negative Fever or Chills
All systems: All other systems were reviewed and were negative
Vital Signs
Temp Pulse Resp BP Pulse Ox
98.6 F 95 18 129/75 98
05/13/24 07:14 05/13/24 07:14 05/13/24 07:14 05/13/24 07:14 05/13/24 07:14
Physical Exam
Physical Exam
Constitutional: No Acute Distress
Cardiovascular: Regular Rate and S1/S2; Negative Murmur or Rub
Pulmonary: Clear and Symmetric; Negative Wheezes, Rales or Rhonchi
Gastrointestinal: Soft, Non Tender, Non Distended and Normal Bowel Sounds
Genito-Urinary: Clear Urine; Negative Suprapubic Tenderness
Skin: Warm and Dry; Negative Rash or Jaundice
Lab / Diagnostic Study Results
05/13/24 06:27
05/13/24 06:27
Abs Immat Gran (auto) 0.0 10^3/uL (0-0.05) 05/12/24 14:03
Absolute Neuts (auto) 4.5 10^3/uL (1.4-6.5) 05/12/24 14:03
Absolute Lymphs (auto) 2.7 10^3/uL (1.2-3.4) 05/12/24 14:03
Absolute Monos (auto) 0.5 10^3/uL (0.1-0.6) 05/12/24 14:03
Absolute Basos (auto) 0.1 10^3/uL (0-0.2) 05/12/24 14:03
Immature Gran % 0.4 % (0-0.5) 05/12/24 14:03
Neutrophils % 54.6 % (42.2-75.2) 05/12/24 14:03
Lymphocytes % 33.6 % (20.5-51.1) 05/12/24 14:03
Monocytes % 5.8 % (1.7-9.3) 05/12/24 14:03
Eosinophils % 5.0 % (0-6) 05/12/24 14:03
Basophils % 0.6 % (0-2) 05/12/24 14:03
Ur Squamous Epith Cells 16-20 /LPF (Few) 05/12/24 17:05
Microbiology Results
Micro:
05/12/24 17:05 Urine Culture - Final
Urine NO GROWTH
05/12/24 19:02 Blood Culture - Pending
Blood/Venous
05/12/24 19:02 Blood Culture - Pending
Blood/Venous
Assessment / Plan
Possible relapse of UTI due to C glabrata vs stent pain
- note that patient was restarted on high dose fluconazole Tuesday 05/09 then 05/10 had relapse of significant groin pain
- ua with pyuria, urine culture done 05/12 could be falsely negative due to the recent restart of fluconazole - alternatively pain could be due to stent itself
- note that yeast in general is known to form biofilms and stent may be colonized
- repeat blood cultures are no growth to date, outpatient blood culture was negative
- recheck stent with CT with IV contrast
- continue fluconazole
- QTc acceptable
- stop zosyn
- asked urology to comment if it is feasible to remove stent at this point
- likely stable for dc tomorrow
--- NOTE | 2024-05-13 13:39 | CM ---
Patient seen at bedside.
IA completed
Current with [facility]
Lives in a 2 story home with , 3 steps to enter, flight stairs to bed/bath
PLOF: Independent, states ambulates with cane outside
DME: Cane, glucometer
Current with [facility], Denies Rehab
Denies insecurities
PCP: Denise Johnson
Pharmacy: [address], [place]
PLAN: [facility]
[2024-05-13 15:18] VITALS: BP 135/78
[2024-05-13] MEDS: ZOFRAN 4 MG IV (16:07)
[2024-05-13 16:44] LABS: Glucose - Point of Care 110 mg/dl (70-99)
[2024-05-13] MEDS: LOVENOX 40 MG SC (16:57)
--- NOTE | 2024-05-13 17:01 | PTCARENOTE ---
Patient refused standing mealtime insulin coverage throughout shift.
[2024-05-13 21:13] LABS: Glucose - Point of Care 209 mg/dl (70-99)
[2024-05-13 23:23] VITALS: BP 120/71
[2024-05-14 07:15] VITALS: BP 111/69
--- NOTE | 2024-05-14 07:53 | CON.MD ---
Consultation - Medical
-
see dictated note
pt with hx of right sided crossed fused renal ectopia
hx of stones
presented 05/05 with obstructing stone in right moeity and sepsis
stent placed by dr menendez
cx's- blood and urine- return + for yeast- treated
now admitted with recurent flank and groin pain
to date- no fevers/nl wbc and cx's negative
ct with contrast- no abscess or obstruction
plan
follow cx's- at this point no evid of infx/abscess or obstrcution
sx's may be stent pain
will discuss with dr menendez timing of next procedure
will follow
[2024-05-14 08:20] LABS: Glucose - Point of Care 100 mg/dl (70-99)
[2024-05-14] MEDS: NOVOLOG FLEXPEN-LOW RESISTANCE SC ×3 (08:48→17:45)
[2024-05-14] MEDS: ProAmatine 2.5 MG PO ×3 (08:49→17:46)
[2024-05-14] MEDS: PROTONIX 40 MG PO (08:49)
[2024-05-14] MEDS: DIFLUCAN 800 MG PO (08:49)
[2024-05-14] MEDS: CRESTOR 20 MG PO (08:50)
[2024-05-14] MEDS: LANTUS 0.15 UNITS SC (08:50)
[2024-05-14] MEDS: FLOMAX 0.4 MG PO (08:50)
[2024-05-14] MEDS: NEURONTIN 800 MG PO ×2 (08:50→20:14)
[2024-05-14] MEDS: NOVOLOG FLEXPEN SC (08:54)
--- NOTE | 2024-05-14 10:14 | W.PN.ID1 ---
Date of Service
Date of Service: May 14, 2024
Today's Communication
- continue fluconazole 05/16-05/29
- QTc acceptable
- follow up with urology
- stable for dc from ID perspective
Assessment / Plan
Possible relapse of UTI due to C glabrata vs stent pain
- note that patient was restarted on high dose fluconazole Tuesday 05/09 then 05/10 had relapse of significant groin pain
- ua with pyuria, urine culture done 05/12 could be falsely negative due to the recent restart of fluconazole - alternatively pain could be due to stent itself
- note that yeast in general is known to form biofilms and stent may be colonized
- repeat blood cultures are no growth to date, outpatient blood culture was also negative
- CT with contrast nonrevealing
- continue fluconazole 05/16-05/29
- QTc acceptable
- follow up with urology
- stable for dc from ID perspective
Chief Complaint
-: UTI
Subjective / Review of Systems
Afebrile
bp stable
no events overnight
Vital Signs / Physical Exam
Vital Signs
Vital Signs
Temp Pulse Resp BP Pulse Ox
98.1 F 98 16 111/69 97
05/14/24 07:15 05/14/24 08:49 05/14/24 07:15 05/14/24 08:49 05/14/24 07:15
Physical Exam
Constitutional: No Acute Distress
Cardiovascular: Regular Rate and S1/S2; Negative Murmur or Rub
Pulmonary: Clear and Symmetric; Negative Wheezes or Rales
Gastrointestinal: Soft, Non Tender, Non Distended and Normal Bowel Sounds
Genito-Urinary: Suprapubic Tenderness and Other (tenderness in the groin); Negative CVA Tenderness
Skin: Warm and Dry; Negative Rash or Jaundice
Neurological: Awake
Objective Data
Lab Data
Lab Results
05/13/24 06:27
05/13/24 06:27
Estimated Creat Clear 82 ml/min 05/13/24 06:27
Total Bilirubin 0.4 mg/dl (0.2-1.3) 05/12/24 14:03
AST 26 U/L (14-36) 05/12/24 14:03
ALT 20 U/L (0-35) 05/12/24 14:03
Alkaline Phosphatase 127 U/L (38-126) H 05/12/24 14:03
Most recent labs reviewed.
Micro Results:
05/12/24 19:02 Blood Culture - Preliminary
Blood/Venous No Growth in 24 hours- Final report to follow
05/12/24 19:02 Blood Culture - Preliminary
Blood/Venous No Growth in 24 hours- Final report to follow
05/12/24 17:05 Urine Culture - Final
Urine NO GROWTH
[2024-05-14 12:03] LABS: Glucose - Point of Care 128 mg/dl (70-99)
[2024-05-14 13:07] VITALS: BP 104/61
--- NOTE | 2024-05-14 13:10 | CON.GI ---
Addendum entered and electronically signed by Aleks Jean MD 05/14/24 15:02:
I saw and examined the patient.
The FOOD SAFETY TECHNICIAN or PA's note was reviewed and I agree with the note.
Comment: 63yo female recently admitted for R renal stone, pyuria, sepsis and had R stent placement. UCx positive Ecoli, yeast managed with ID. D/C 04/29. Now returns with R flank pain. Seen by Urology, who feels this is due to stent pain.
Imaging incidentally found gallstones. LFTs normal. GI consulted to evaluate. She denies post prandial pain. Denies loss of appetite, nausea, vomiting
REC:
I doubt her gallstones are contributing to her current R flank pain, which is likely stent pain after treatment of her recent urosepsis
Told her to monitor for post prandial symptoms
Otherwise, would hold off on cholecystectomy which would be the treatment fo symptomatic gallstones
Will sign off
Original Note:
Consultation
-
Date/Time Consultation Requested: 05/14/24 1145
Date/Time Consultation Performed: 05/14/24 1315
Requesting Provider: Gino Mast MD
Performing Provider: ASH Spear, Aleks Jean MD
Reason for Consultation: abdominal pain
Medical History
Chief Complaint / HPI
Chief Complaint: right sided pain
History of Present Illness:
Pt is a 63yo with hx cross fused kidney with single ureter, renal stones, NIDDM, SVT, prior cardiac ablation, sole esophagitis, HTN, orthostatic hypotension, DDD prior spinal fusion, with recent admission 04/20- 04/29 with right flank and groin
pain with concern for obstructive ureterolithiasis with hx crossed fused kidney with noted hydronephrosis, UTI and sepsis. She was seen by urology and completed right ureteroscopy, laser lithotripsy with stone manipulation right double J stent
placement and pyelogram completed colon with noted with Ecoli, staph epidermidis, leukonostoc and yeast with repeat cx neg and blood cx with yeast. She was seen by ID for abx regiment. She now returns 05/12 with right flank pain. She has been seen
by urology with concern for stent related pain. Repeat urine cx neg. Since admission pt completed CT x 2 with first without contrast with fused kidney with right ureteral stent without calculus. Also noted cholelithiasis without acute
cholecystitis. Repeat 05/12 with IV contrast with trace pleural fluid, fused kidney stent in satisfactory position. small gallstone in Gallbladder, gaseous distention of sigmoid, and moderate amount of stool in colon with degree of constipation.
since admission LFT's normal except Alk phos 127 with normal to 126.
At this time patient as hx chronic GERD with PPI use daily use and right sided low back pain and right groin pain similar to prior to admission. Pain in constant and some improvement with pain meds. She admits to some mild constipation with
stool every other day with last stool 2 days ago but typically does not need laxative. She otherwise dysphagia, nausea, vomiting, diarrhea or rectal bleeding. Pt is noted with some anemia but chronically low since October without transfusions.
Last EGD February 2023 at [place] with sole and colonoscopy 2017 normal due 2026 repeat.
Past Medical History
Past Medical History: Arrhythmias (SVT), HTN, NIDDM and Other (DDD, crossed fused kidney on right , orthostatic hypotension, pericardial cyst, nephrolithiasis, lumbar DDD)
Past Surgical History: Cardiac (ablation ), Gynecological (D+C, tubal ligation ), Orthopedic (spinal fusion) and Other (tubal ligation, gastric sleeve )
Social History
Tobacco: Non-Smoker
Alcohol: None
Drug: None
Personal:
Living: With Family
Employment: Retired
Family History
Family History: Other (no family hx colon CA or polyps)
Allergies / Home Medications
Allergy/AdvReac Type Severity Reaction Status Date / Time
No Known Allergies Allergy Verified 04/20/24 11:47
�Medication �Instructions �Recorded
clobetasol 0.05 % topical cream 1 applic topical DAILYPRN PRN 10/14/23
eczema
gabapentin 800 mg tablet 800 mg PO BID Pain 10/14/23
insulin glargine 100 unit/mL (3 18 unit SC DAILY Diabetes 10/14/23
mL) subcutaneous pen (Lantus
Solostar U-100 Insulin)
pantoprazole 40 mg tablet,delayed 40 mg PO DAILY Gastrointestinal 10/14/23
release Issue
rosuvastatin 20 mg tablet 20 mg PO DAILY High Cholesterol 10/14/23
tirzepatide 7.5 mg/0.5 mL 7.5 mg SC WE Diabetes 10/14/23
subcutaneous pen injector
(Mounjaro)
cyanocobalamin (vitamin B-12) 1,000 mcg PO Q48H Supplement 04/20/24
1,000 mcg tablet
insulin lispro 100 unit/mL 5 unit SC AC Diabetes 04/20/24
subcutaneous pen (Humalog KwikPen
(U-100) Insulin)
lidocaine 5 % topical ointment 1 applic topical DAILYPRN PRN back 04/20/24
pain
midodrine 2.5 mg tablet 2.5 mg PO TID low blood pressure 04/20/24
acetaminophen 325 mg tablet 650 mg (2 x 325 mg) PO Q4HPRN PRN 04/29/24
Mild Pain / Temp > 101 #60 tabs
oxycodone 5 mg tablet 5 mg PO Q4HPRN PRN moderate to 04/29/24
severe pain #15 tabs
tamsulosin 0.4 mg capsule 0.4 mg PO DAILY #30 caps 04/29/24
fluconazole 200 mg tablet 400 mg PO BID 05/12/24
Review of Systems
-
History Source: Patient
Constitutional: Reports No Symptoms
EENT: Reports No Symptoms
Respiratory: Reports No Symptoms
Cardiac: Reports No Symptoms
Abdomen/GI: Reports Abdominal Pain (right low flank in back and right groin)
: Reports No Symptoms
Musculoskeletal: Reports No Symptoms
Skin: Reports No Symptoms
Neurological: Reports No Symptoms
Endocrine: Reports No Symptoms
Hematologic/Lymphatic: Reports No Symptoms
Vital Signs
Temp Pulse Resp BP Pulse Ox
99.5 F 98 16 104/61 99
05/14/24 13:07 05/14/24 13:07 05/14/24 13:07 05/14/24 13:08 05/14/24 13:07
Physical Exam
Exam
General: Well Developed, Well Nourished and No Apparent Distress
HEENT: Normocephalic and Anicteric
Respiratory: Clear
Cardiac: Regular Rhythm
GI: Soft, Non Tender, Non Distended and Other (right low back/flank and right groin pain)
Musculoskeletal: No Clubbing and No Cyanosis
Skin: Warm and Dry
Neuro: Awake, Alert and AO x 3
Psych: Calm
Results
WBC 6.8 10^3/uL (4.8-10.8) 05/13/24 06:27
Hgb 8.1 g/dL (12.0-16.0) L 05/13/24 06:27
Hct 26.0 % (37.0-47.0) L 05/13/24 06:27
MCV 85.8 fL (81.0-99.0) 05/13/24 06:27
Plt Count 246 10^3/uL (130-400) D 05/13/24 06:27
Absolute Neuts (auto) 4.5 10^3/uL (1.4-6.5) 05/12/24 14:03
Sodium 140 mmol/L (135-145) 05/13/24 06:27
Potassium 3.8 mmol/L (3.5-5.1) 05/13/24 06:27
Chloride 105 mmol/L (98-107) 05/13/24 06:27
Carbon Dioxide 25 mmol/L (22-30) 05/13/24 06:27
BUN 10 mg/dl (7-17) 05/13/24 06:27
Creatinine 0.7 mg/dL (0.6-1.0) 05/13/24 06:27
Calcium 8.8 mg/dl (8.4-10.2) 05/13/24 06:27
Total Bilirubin 0.4 mg/dl (0.2-1.3) 05/12/24 14:03
AST 26 U/L (14-36) 05/12/24 14:03
ALT 20 U/L (0-35) 05/12/24 14:03
Alkaline Phosphatase 127 U/L (38-126) H 05/12/24 14:03
Diagnostic Image Results:
05/13/24 CT Abd/pelvis W Iv Cont
IMPRESSION: Trace amount of pleural fluid in the posterior dependent lower chest bilaterally. Mild adjacent dependent atelectasis.
As described, cross fused ectopia of the kidneys. There are nephroliths within the lower pole of the right kidney moiety. A right ureteral stent is present, which appears in satisfactory position.
Streak artifact from fusion hardware slightly limits evaluation of the kidneys, especially the right kidney moiety. Given this limitation, no convincing evidence for pyelonephritis by CT. No evidence for renal abscess. No evidence for perirenal
abscess.
Layer of small gallstones within the dependent portion of the gallbladder. No secondary findings to suggest acute cholecystitis.
Mild gaseous distention of the sigmoid colon, extending into the lower abdomen.
Moderate amount of stool throughout the colon, suggesting a degree of constipation. No evidence for bowel obstruction or free intraperitoneal air.
05/12/24 CT Abd/pel Without Iv Or Oral
Crossed fused ectopia with left moiety within the right to central lower abdomen upper pelvis, fused to the lower pole of the right moiety.
Right ureteral stent is present with no evidence for calculus along the course of the right ureteral stent.
Multiple nephroliths in the lower pole of the right moiety. No evidence for nephroliths or ureteral calculus involving the left moiety.
If there are persistent clinical symptoms and there are no contraindications, consideration for contrast-enhanced evaluation.
Cholelithiasis. No CT evidence for acute cholecystitis.
Streak artifact from fusion hardware in the upper to mid lumbar spine, which does limit evaluation
Prior GI Procedures:
EGD: 2022 with sole eliana howell
Colonoscopy: 2016 normal dwaynethukeegan howell
Assessment / Plan
-
Pt is a 63yo with hx cross fused kidney with single ureter, renal stones, NIDDM, SVT, prior cardiac ablation, sole esophagitis, HTN, orthostatic hypotension, DDD prior spinal fusion, with recent admission 04/20- 04/29 with right flank and groin
pain with concern for obstructive ureterolithiasis with hx crossed fused kidney with noted hydronephrosis, UTI and sepsis. She was seen by urology and completed right ureteroscopy, laser lithotripsy with stone manipulation right double J stent
placement and pyelogram completed colon with noted with Ecoli, staph epidermidis, leukonostoc and yeast with repeat cx neg and blood cx with yeast. She was seen by ID for abx regiment. She now returns / with right flank pain. She has been seen
by urology with concern for stent related pain. Repeat urine cx neg. Since admission pt completed CT x 2 with first without contrast with fused kidney with right ureteral stent without calculus. Also noted cholelithiasis without acute
cholecystitis. Repeat / with IV contrast with trace pleural fluid, fused kidney stent in satisfactory position. small gallstone in Gallbladder, gaseous distention of sigmoid, and moderate amount of stool in colon with degree of constipation.
since admission LFT's normal except Alk phos 127 with normal to 126.
-right low flank/back pain and right groin pain
-recent obstructive ureterolithiasis with hx crossed fused kidney with noted hydronephrosis, UTI and sepsis.
-chronic anemia with some iron deficiency
-constipation on imaging
-cholelithiasis
other med problems:
-renal stones
-NIDDM
-SVT
-prior ablation
-hx sole esophagitis
-HTN
-orthostasis
-DDD with prior fusion
PLAN:
Etiology of right sided pain related to urologic stent vs other
currently no upper abdominal pain or LFT elevation to suggest gallstone related
plan per urology
for constipation will add Miralax daily -- may be slightly worse with narcotic use and recent urologic issues
noted some chronic anemia with recent iron deficiency-- OP follow up with known GI at [place] when improved from urologic standpoint
-
-
Thank you for consultation and allowing me to participate in the patient's care. Please call the c consultant GI physician during the after hours with any questions or concerns.
[2024-05-14] MEDS: NOVOLOG FLEXPEN 5 UNITS SC ×2 (13:13→17:46)
--- NOTE | 2024-05-14 14:11 | CM ---
Patient chart reviewed
ct with contrast- no abscess or obstruction
urology consult
PLAN: Home with [facility] when medically stable
--- NOTE | 2024-05-14 14:32 | W.PN.HOSP.TC ---
Today's Communication/Plan
-
EKG today
Urology believes pain is most likely stent pain and will be scheduling further procedure
Assessment / Plan
Assessment / Plan
IMPRESSION:
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
right sided flank pain. She is afebrile and hemodynamically stable. She has no leukocytosis. UA is actually quite positive with 3+ leukocyte esterase and numerous WBCs. Few bacteria. The CT of the abdomen pelvis shows her stent is in place and
in appropriate position. No hydronephrosis. Renal function is normal. Though also with layer of small gallstones, no findings to suggest acute cholecystitis.
Discussed with Dr. Aleks Jean, will request input from GI regarding cholelithiasis, as per pt request
PLAN:
Suspected Pyelonephritis
- She has history of multidrug resistance E. coli as well as yeast infection during admission in early April.
- s/p stent/stone procedure 04/21.
-Urine culture sent, blood cultures
-Starting IV Zosyn and Diflucan
-Pain control, antiemetics, iv fluids.
- continue tamsulosin
- ID consult
discussed with Dr. Vela, he is requesting preop EKG
DM II - On insulin lantus 18 am and humalog 5 ac
- continue lantus in am, 15
- humalog 5 ac
- sliding scale. A1C 7.2%
glu 100-209
Peripheral Neuropathy
- Stable. Continue current home dose of gabapentin.
History of SVT s/p Ablation (remote)
Lumbar DDD
History of Gastric Sleeve
- Stable. No acute issues / complaints.
Chronic hypotension
-on low dose midodrine
-BP at home stable.
DVT PPX - lovenox sq
Code status - Full Code
Anticipated Discharge: 24 - 48 hours
Subjective/Interval History
-
Date of Service: May 14, 2024
Currently without pain
Objective Data
-
Vital Signs:
Vital Signs
Temp Pulse Resp BP Pulse Ox
99.5 F 98 16 104/61 99
05/14/24 13:07 05/14/24 13:07 05/14/24 13:07 05/14/24 13:08 05/14/24 13:07
I&O
05/13/24 05/14/24 05/15/24
06:59 06:59 06:59
Intake Total 1680 / 1680 1140 / 1140
Balance 1680 / 1680 1140 / 1140
Review of Systems
-
History Source: Patient and Physician (reviewed with Dr. Vela)
Constitutional: Denies Fever
EENT: Reports No Symptoms Reported
Respiratory: Reports No Symptoms
Cardiac: Reports No Symptoms
Abdomen/GI: Denies Abdominal Pain (not currently)
Genitourinary: Denies Dysuria
Physical Exam
-
General: Well Developed, Well Nourished and No Apparent Distress
HEENT: Normocephalic, Atraumatic and Moist Mucous Membranes
Respiratory: Clear to Auscultation; Negative Wheezes, Rales or Rhonchi
Cardiac: Regular Rhythm and S1/S2
GI: Soft, Nontender and Nondistended
Musculoskeletal: No Clubbing, No Cyanosis and No Edema
Skin: Warm and Dry
[2024-05-14 15:20] VITALS: BP 125/74
[2024-05-14 17:02] LABS: Glucose - Point of Care 120 mg/dl (70-99)
[2024-05-14] MEDS: MIRALAX 17 GRAMS PO (17:45)
[2024-05-14] MEDS: ROXICODONE 5 MG PO (17:45)
[2024-05-14] MEDS: LOVENOX 40 MG SC (17:46)
[2024-05-14 21:28] LABS: Glucose - Point of Care 90 mg/dl (70-99)
[2024-05-14 23:17] VITALS: BP 120/72
[2024-05-15 07:10] VITALS: BP 125/74
[2024-05-15 07:11] LABS: % Basophils 0.5 % (0-2); % Eosinophils 7.9 % (0-6); % Immature Granulocytes 0.2 % (0-0.5); % Lymphocytes 39.2 % (20.5-51.1); % Monocytes 8.1 % (1.7-9.3); % Neutrophils 44.1 % (42.2-75.2); Absolute Eosinophils 0.5 10^3/uL (0-0.7); Absolute Lymphocytes 2.6 10^3/uL (1.2-3.4); Absolute Monocytes 0.5 10^3/uL (0.1-0.6); Absolute Neutrophils 2.9 10^3/uL (1.4-6.5); Hematocrit 28.2 % (37.0-47.0); Hemoglobin 8.8 g/dL (12.0-16.0); Mean Corp Hgb Conc. 31.2 g/dL (33.0-37.0); Mean Corpuscular Hgb 26.6 pg (27.0-31.0); Mean Corpuscular Volume 85.2 fL (81.0-99.0); Mean Platelet Volume 10.8 fL (7.4-10.4); Nucleated Red Blood Cells % 0 %; Platelet Count 238 10^3/uL (130-400); Red Blood Cell Count 3.31 10^6/uL (4.20-5.40); Red Cell Dist. Width 14.3 % (11.5-14.5); White Blood Cell Count 6.6 10^3/uL (4.8-10.8)
[2024-05-15 07:49] LABS: ALT (SGPT) 12 U/L (0-35); AST (SGOT) 19 U/L (14-36); Albumin 3.2 g/dl (3.5-5.0); Alkaline Phosphatase 116 U/L (38-126); Blood Urea Nitrogen 11 mg/dl (7-17); Calcium 9.3 mg/dl (8.4-10.2); Carbon Dioxide 28 mmol/L (22-30); Chloride 102 mmol/L (98-107); Estimated Creatinine Clearance 82 ml/min; Glucose 110 mg/dl (70-99); Potassium 4.1 mmol/L (3.5-5.1); Sodium 137 mmol/L (135-145); Total Bilirubin 0.7 mg/dl (0.2-1.3); Total Protein 6.9 g/dl (6.3-8.2); eGFR > 60.00
[2024-05-15 08:33] LABS: Glucose - Point of Care 87 mg/dl (70-99)
[2024-05-15] MEDS: NOVOLOG FLEXPEN SC (09:43)
[2024-05-15] MEDS: NOVOLOG FLEXPEN-LOW RESISTANCE SC (09:43)
[2024-05-15] MEDS: PROTONIX 40 MG PO (09:44)
[2024-05-15] MEDS: ProAmatine 2.5 MG PO ×2 (09:44→13:17)
[2024-05-15] MEDS: DIFLUCAN 800 MG PO (09:44)
[2024-05-15] MEDS: FLOMAX 0.4 MG PO (09:45)
[2024-05-15] MEDS: VITAMIN B-12 1000 MCG PO (09:45)
[2024-05-15] MEDS: MIRALAX 17 GRAMS PO (09:45)
[2024-05-15] MEDS: CRESTOR 20 MG PO (09:45)
[2024-05-15] MEDS: NEURONTIN 800 MG PO (09:45)
[2024-05-15] MEDS: LANTUS SC (09:59)
--- NOTE | 2024-05-15 10:04 | W.PN.URO.CBU ---
Today's Communication / Plan
-
home
Assessment / Plan
-
nl cxs nl gallladder with stones for d/c on pomanalgesics re do stone ery
Diagnosis
-
Date of Service: May 15, 2024
-
Patient Diagnosis:stent pain
Post Op Day:
Subjective
-
controlled pain with po ansagesics
Objective
-
Vital Signs
Temp Pulse Resp BP Pulse Ox
98.2 F 84 16 125/74 98
05/15/24 07:10 05/15/24 09:44 05/15/24 07:10 05/15/24 09:44 05/15/24 07:10
Intake and Output
05/14/24 05/15/24 05/16/24
06:59 06:59 06:59
Intake Total 1140 / 1140 0 / 0
Balance 1140 / 1140 0 / 0
Intake:
Oral fluids 1140 / 1140 0 / 0
Other:
Number of approximated SMALL 1
amounts of urine
Number of approximated MODERATE 2 2
amounts of urine
Number of approximated LARGE 1
amounts of urine
Laboratory Results
05/15/24 06:22
05/15/24 06:22
Review of Systems
-
Abdomen/GI: Abdominal Pain
: Frequency
Physical Exam
-
General - well developed, well nourished, no acute distress
Chest - clear bilaterally
Abdomen - soft, non-tender, positive bowel sounds, no CVAT, no incisional pain or distention
Genitalia - normal
Rectal - normal
Skin - warm & dry with no rash
Neuro - AOx3, no motor deficits
Extremities - no clubbing, no cyanosis, no edema
Incision - clean, dry
Dressing - clean, dry, intact
Care Review
Data Reviewed
Discussed with: Hospitalist and Nursing
CT Scan: Image Pers Reviewed
[2024-05-15 12:38] LABS: Glucose - Point of Care 260 mg/dl (70-99)
[2024-05-15] MEDS: NOVOLOG FLEXPEN-LOW RESISTANCE 3 UNITS SC (13:06)
[2024-05-15] MEDS: NOVOLOG FLEXPEN 5 UNITS SC (13:06)
[2024-05-15 13:13] VITALS: BP 129/83
[2024-05-15] MEDS: TYLENOL 650 MG PO (13:17)
--- NOTE | 2024-05-15 13:36 | W.PN.HOSP.TC ---
Today's Communication/Plan
-
dc now
Assessment / Plan
Assessment / Plan
IMPRESSION:
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
right sided flank pain. She is afebrile and hemodynamically stable. She has no leukocytosis. UA is actually quite positive with 3+ leukocyte esterase and numerous WBCs. Few bacteria. The CT of the abdomen pelvis shows her stent is in place and
in appropriate position. No hydronephrosis. Renal function is normal. Though also with layer of small gallstones, no findings to suggest acute cholecystitis.
Discussed with Dr. Aleks Jean, appreciate input from GI regarding cholelithiasis, as per pt request
PLAN:
Suspected Pyelonephritis
- She has history of multidrug resistance E. coli as well as yeast infection during admission in early April.
- s/p stent/stone procedure 04/21.
-Urine culture sent, blood cultures
-Started IV Zosyn, which was stopped by ID and confirmed no oral abx currently needed, and Diflucan 800 mg which is to continue
-Pain control, antiemetics, iv fluids.
- continue tamsulosin
- ID consult
discussed with Dr. Vela, he is requesting preop EKG
DM II - On insulin lantus 18 am and humalog 5 ac
- continue lantus in am, 15
- humalog 5 ac
- sliding scale. A1C 7.2%
glu 100-209. Resume preadmit insulin
Peripheral Neuropathy
- Stable. Continue current home dose of gabapentin.
History of SVT s/p Ablation (remote)
Lumbar DDD
History of Gastric Sleeve
- Stable. No acute issues / complaints.
Chronic hypotension
-on low dose midodrine
-BP at home stable.
DVT PPX - lovenox sq
Code status - Full Code
dc now
see dictated note
More than 30 minutes spent in discharge including
Final examination of the patient
Summarizing hospital stay
Instructions for continuing care to all relevant caregivers
Preparation of discharge records, prescriptions, and referral forms
Total time spent (in minutes): 45
Anticipated Discharge: Today
Subjective/Interval History
-
Date of Service: May 15, 2024
Feels well, anxiously awaiting dc
Objective Data
-
Labs:
Laboratory Results
05/15/24
06:22
WBC 6.6
Hgb 8.8 L
Hct 28.2 L
Plt Count 238
Sodium 137
Potassium 4.1
Chloride 102
Carbon Dioxide 28
BUN 11
Creatinine 0.7
Glucose 110 H
Calcium 9.3
Total Bilirubin 0.7
AST 19
ALT 12
Alkaline Phosphatase 116
Vital Signs:
Vital Signs
Temp Pulse Resp BP Pulse Ox
98.2 F 101 16 129/83 98
05/15/24 07:10 05/15/24 13:17 05/15/24 07:10 05/15/24 13:17 05/15/24 07:10
I&O
05/14/24 05/15/24 05/16/24
06:59 06:59 06:59
Intake Total 1140 / 1140 0 / 0
Balance 1140 / 1140 0 / 0
Review of Systems
-
History Source: Patient and Physician (reviewed with Dr. Vela)
Constitutional: Denies Fever
EENT: Reports No Symptoms Reported
Respiratory: Reports No Symptoms
Cardiac: Reports No Symptoms
Abdomen/GI: Denies Abdominal Pain (not currently)
Genitourinary: Denies Dysuria
Physical Exam
-
General: Well Developed, Well Nourished and No Apparent Distress
HEENT: Normocephalic, Atraumatic and Moist Mucous Membranes
Respiratory: Clear to Auscultation; Negative Wheezes, Rales or Rhonchi
Cardiac: Regular Rhythm and S1/S2
GI: Soft, Nontender and Nondistended
Musculoskeletal: No Clubbing, No Cyanosis and No Edema
Skin: Warm and Dry
[2024-05-15 15:10] VITALS: BP 108/68
--- NOTE | 2024-05-15 15:32 | W.DS.TRANS ---
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
-
Discharge Instructions:
Discharge Diagnosis/Procedures Alexa UTI
Diet Diabetic, Carb Controlled
Activity As tolerated,No strenuous activity
Driving Restrictions As prior to admission
Bathing Restrictions None
Others Tests follow up with known GI at [place] for anemia
to review for repeat colonoscopy when improved
from urologic standpoint
Instructions:
Stand-Alone Forms:
Changes to Home Medications: No
Discharge Medications:
DC Medications w/original date entered in [employer]
clobetasol 0.05 % topical cream 1 applic topical DAILYPRN PRN eczema 10/14/23
gabapentin 800 mg tablet 800 mg PO BID Pain 10/14/23
insulin glargine 100 unit/mL (3 mL) subcutaneous pen (Lantus Solostar U-100 Insulin) 18 unit SC DAILY Diabetes 10/14/23
pantoprazole 40 mg tablet,delayed release 40 mg PO DAILY Gastrointestinal Issue 10/14/23
rosuvastatin 20 mg tablet 20 mg PO DAILY High Cholesterol 10/14/23
tirzepatide 7.5 mg/0.5 mL subcutaneous pen injector (Mounjaro) 7.5 mg SC WE Diabetes 10/14/23
cyanocobalamin (vitamin B-12) 1,000 mcg tablet 1,000 mcg PO Q48H Supplement 04/20/24
insulin lispro 100 unit/mL subcutaneous pen (Humalog KwikPen (U-100) Insulin) 5 unit SC AC Diabetes 04/20/24
lidocaine 5 % topical ointment 1 applic topical DAILYPRN PRN back pain 04/20/24
midodrine 2.5 mg tablet 2.5 mg PO TID low blood pressure 04/20/24
acetaminophen 325 mg tablet 650 mg (2 x 325 mg) PO Q4HPRN PRN Mild Pain / Temp > 101 #60 tabs 04/29/24
oxycodone 5 mg tablet 5 mg PO Q4HPRN PRN moderate to severe pain #15 tabs 04/29/24
tamsulosin 0.4 mg capsule 0.4 mg PO DAILY #30 caps 04/29/24
fluconazole 200 mg tablet 400 mg PO BID 05/12/24
acetaminophen 325 mg tablet 650 mg (2 x 325 mg) PO Q4HPRN PRN mild pain/OH/temp> 100.4F #0 tabs 05/15/24
insulin aspart U-100 100 unit/mL (3 mL) subcutaneous pen 5 unit (0.05 mL) SC AC #15 mL 05/15/24
Home Medication Changes
Pending Results: No
--- NOTE | 2024-05-15 15:57 | CM ---
Addendum entered by Sania Young 05/15/24 16:00:
IMM benefit explained; form signed @ [phone]
Original Note:
Met with patient to discuss discharge plan; she reported that and son will transport home
Patient is scheduled to have a procedure on Saturday; readmission to the hospital afterwards is not confirmed
Plan: Discharge to home with resumption of [facility] services
--- NOTE | 2024-05-15 16:24 | W.PN.ID1 ---
Date of Service
Date of Service: May 15, 2024
Today's Communication
- continue fluconazole 05/16-05/29
- QTc acceptable
- follow up with urology
- stable for dc from ID perspective
Assessment / Plan
Possible relapse of UTI due to C glabrata vs stent pain
- note that patient was restarted on high dose fluconazole Tuesday 05/09 then 05/10 had relapse of significant groin pain
- ua with pyuria, urine culture done 05/12 could be falsely negative due to the recent restart of fluconazole - alternatively pain could be due to stent itself
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
- repeat blood cultures are no growth to date, outpatient blood culture was also negative
- CT with contrast nonrevealing
- continue fluconazole 05/16-05/29
- QTc acceptable
- follow up with urology
- stable for dc from ID perspective
Chief Complaint
-: UTI
Subjective / Review of Systems
afebrile
bp stable
'I feel better' no complaints
Vital Signs / Physical Exam
Vital Signs
Vital Signs
Temp Pulse Resp BP Pulse Ox
98.9 F 109 16 108/68 97
05/15/24 15:10 05/15/24 15:10 05/15/24 15:10 05/15/24 15:10 05/15/24 15:10
Physical Exam
Constitutional: No Acute Distress
Cardiovascular: Regular Rate and S1/S2; Negative Murmur or Rub
Pulmonary: Clear and Symmetric; Negative Wheezes or Rales
Gastrointestinal: Soft, Non Tender, Non Distended and Normal Bowel Sounds
Skin: Warm and Dry; Negative Rash or Jaundice
Objective Data
Lab Data
Lab Results
05/15/24 06:22
05/15/24 06:22
Estimated Creat Clear 82 ml/min 05/15/24 06:22
Total Bilirubin 0.7 mg/dl (0.2-1.3) 05/15/24 06:22
AST 19 U/L (14-36) 05/15/24 06:22
ALT 12 U/L (0-35) 05/15/24 06:22
Alkaline Phosphatase 116 U/L (38-126) 05/15/24 06:22
Most recent labs reviewed.
Micro Results:
05/12/24 19:02 Blood Culture - Preliminary
Blood/Venous No Growth in 48 hours- Final report to follow
05/12/24 19:02 Blood Culture - Preliminary
Blood/Venous No Growth in 48 hours- Final report to follow
05/12/24 17:05 Urine Culture - Final
Urine NO GROWTH
[2024-05-15 16:52] LABS: Glucose - Point of Care 178 mg/dl (70-99)
== END 2024-05-15 18:05 | disposition home health service (06) | DRG 690 ==
LOC: 4 EAST ACU 19:56
PROVIDERS: Emergency Medicine; Nurse Practitioner; ADMITTING PHYSICIAN Internal Medicine; ATTENDING PHYSICIAN Internal Medicine; CONSULT PHYSICIAN Specialist; CONSULT PHYSICIAN Student in an Organized Health Care Education/Training Program; EMERGENCY PHYSICIAN Emergency Medicine; FAMILY PHYSICIAN Internal Medicine
DX: N12 Tubulo-interstitial nephritis, not specified as acute or chronic (principal); I47.10 Supraventricular tachycardia, unspecified; J98.11 Atelectasis; E11.40 Type 2 diabetes mellitus with diabetic neuropathy, unspecified; Z79.4 Long term (current) use of insulin; I95.1 Orthostatic hypotension; K80.20 Calculus of gallbladder without cholecystitis without obstruction; M51.369 Other intervertebral disc degeneration, lumbar region without mention of lumbar back pain or lower extremity pain; Z87.442 Personal history of urinary calculi; E78.00 Pure hypercholesterolemia, unspecified; I10 Essential (primary) hypertension; Q63.1 Lobulated, fused and horseshoe kidney; K59.00 Constipation, unspecified; Q63.2 Ectopic kidney; M47.816 Spondylosis without myelopathy or radiculopathy, lumbar region; G89.29 Other chronic pain; D64.9 Anemia, unspecified; R13.10 Dysphagia, unspecified; R32 Unspecified urinary incontinence; Z98.1 Arthrodesis status
CPT/HCPCS: 74176; 74177; 80048; 80053; 81003; 81015; 82962; 85025; 85027; 87040; 87086; 93005; 96365; 96375; 99285; Q9967

== ENCOUNTER 2024-05-19 06:31 | Day surgery (SDC) | payer MEDICARE, SELFPAY ==
--- NOTE | 2024-05-15 14:32 | PTCARENOTE ---
Abn Hbg 8.8, Dr. Drew made aware, No additional interventions requested. Janina at Dr. Dawkins office made aware.
[2024-05-19] VITALS (10 sets, daily range): BP systolic 109–135; BP diastolic 69–83; BMI 24.7
[2024-05-19 09:25] LABS: Glucose - Point of Care 152 mg/dl (70-99)
[2024-05-19] MEDS: NORMOSOL-R/PLASMALYTE-A 1000 IV (09:28)
[2024-05-19] MEDS: EMEND 40 MG PO (09:29)
[2024-05-19 11:16] LABS: Glucose - Point of Care 121 mg/dl (70-99)
[2024-05-19 13:03] LABS: Glucose - Point of Care 121 mg/dl (70-99)
[2024-05-19] MEDS: Pyridium 200 MG PO (13:40)
== END 2024-05-19 14:47 | disposition home or self-care (01) ==
LOC: SDS 06:31
PROVIDERS: ATTENDING PHYSICIAN Specialist
DX: N20.2 Calculus of kidney with calculus of ureter (principal)
CPT/HCPCS: 52356; 74018; 76000; 82962; 87086; A4300; C1894; C2617; J1580

== ENCOUNTER → 2024-06-04 13:30 | Outpatient (REF) | payer MEDICARE, SELFPAY ==
[2024-06-04 15:30] LABS: Urine Albumin 2+ (Neg - Trace); Urine Bilirubin Negative (Negative); Urine Character Cloudy (Clear); Urine Color Yellow; Urine Glucose Negative (Negative); Urine Ketone Negative (Negative); Urine Leukocyte 3+ (Negative); Urine Nitrite Negative (Negative); Urine Occult Blood 3+ (Negative); Urine Specific Gravity 1.015 (<1.030); Urine Urobilinogen Negative (Neg - 1+)
[2024-06-04 15:51] LABS: Urine Bacteria Moderate (Negative); Urine White Cell >100 /HPF (0-5)
== END ==
LOC: REG 13:30
PROVIDERS: ATTENDING PHYSICIAN Specialist; FAMILY PHYSICIAN Internal Medicine
DX: N39.0 Urinary tract infection, site not specified (principal)
CPT/HCPCS: 81003; 81015; 87086

== ENCOUNTER → 2024-06-16 09:18 | Outpatient (REF) | payer MEDICARE, SELFPAY | LOC: HWRCS 09:18 | PROVIDERS: ATTENDING PHYSICIAN Internal Medicine Cardiovascular Disease; FAMILY PHYSICIAN Internal Medicine | DX: I31.39 Other pericardial effusion (noninflammatory) (principal); Z87.898 Personal history of other specified conditions | CPT/HCPCS: 93306 ==

== ENCOUNTER → 2024-06-25 08:00 | Outpatient (REF) | payer MEDICARE, SELFPAY | LOC: RAD 08:00 | PROVIDERS: ATTENDING PHYSICIAN Specialist; FAMILY PHYSICIAN Internal Medicine | DX: N13.30 Unspecified hydronephrosis (principal) | CPT/HCPCS: 74178; Q9967 ==

== ENCOUNTER 2024-07-30 06:03 | Day surgery (SDC) | payer MEDICARE, SELFPAY ==
[2024-07-30] VITALS (8 sets, daily range): BP systolic 115–134; BP diastolic 64–84; BMI 25.1
[2024-07-30 06:45] LABS: Glucose - Point of Care 155 mg/dl (70-99)
[2024-07-30] MEDS: NORMOSOL-R/PLASMALYTE-A 1000 IV (06:50)
[2024-07-30 08:23] LABS: Glucose - Point of Care 104 mg/dl (70-99)
[2024-07-30] MEDS: Pyridium 200 MG PO (08:57)
[2024-08-05 10:02] LABS: Stone Analysis Mass 5 mg
== END 2024-07-30 10:12 | disposition home or self-care (01) ==
LOC: SDS 06:03
PROVIDERS: ATTENDING PHYSICIAN Specialist
DX: N20.2 Calculus of kidney with calculus of ureter (principal); Q63.2 Ectopic kidney
CPT/HCPCS: 52356; 74018; 76000; 82365; 82962; A4300; C1894; C2617

== ENCOUNTER 2024-10-09 09:09 | Emergency (ER) | payer MEDICARE, SELFPAY ==
[2024-10-09 09:15] VITALS: BP 121/87
--- NOTE | 2024-10-09 10:11 | ED.GENMED ---
History of Present Illness
General
Chief Complaint: Flank Pain
Source: patient
Exam Limitations: none
Time Seen by Provider: 10/09/24 09:54
History of Present Illness
History of Present Illness:
63-year-old female presents complaining of 2 days worth of right flank pain that radiates to the groin. She has a history of kidney stones. This feels similar. She is an insulin-dependent diabetic and tends to get infections with her kidney
stones. She follows with urology. No fever currently. No other complaints at this time
Past History
Past History
ED Past Medical History: Arrthythmia (History of SVT), Hypercholesterolemia and IDDM
ED Past Surgical History: Cardiac (Cardiac ablation in 2003) and Other (Spinal fusion in 1988, tubal ligation and 1999, a D&C in 2001,)
Social History
Tobacco: Non-smoker
Alcohol: None
Drug: None
Personal:
Living: with family
Employment: Employed
Family History
Family History: Diabetes and Hypertension
Phy Exam
Physical Exam
Physical Exam:
General: Well-appearing female no acute respiratory distress
HEENT: Normocephalic atraumatic heart: Regular rate and rhythm lungs: Clear no wheeze abdomen: Soft nontender nondistended extremities: No cyanosis
Course
Orders/Labs/Results
Orders:
Orders
10/09/24 10:08
0.9% Sodium Chloride 1000 ml [Nss] 1,000 ml IV BOLUS
Ketorolac [Toradol] 15 mg IV NOW STA
Ondansetron HCl [Zofran] 4 mg PO NOW STA
10/09/24 10:09
CT Abd/pel Without Iv Or Oral Urgent
Comment:
Reason For Exam: right flank pain
10/09/24 10:18
Ondansetron Injectable [Zofran] 4 mg .ROUTE .[facility]
Ondansetron Injectable [Zofran] 4 mg IV NOW STA
10/09/24 10:33
Complete Blood Count/With Diff Urgent
Comprehensive Metabolic Panel Urgent
10/09/24 12:25
Urinalysis Reflex To Culture Urgent
Date Specimen was Collected: 10/09/24
Time Specimen was Collected: 12:09
Urine Microscopic Reflex Cult Urgent
Urine Culture Urgent
[place] Source: U
Specimen Description:
Date Specimen was Collected: 10/09/24
Time Specimen was Collected: 12:09
Abnormal Lab Results
10/09/24 10/09/24
10:33 12:25
MCH 26.7 L pg
(27.0-31.0)
MCHC 32.5 L g/dL
(33.0-37.0)
MPV 11.8 H fL
(7.4-10.4)
Glucose 138 H mg/dl
(70-99)
Leukocyte Esterase Rfl 1+ A
(Negative)
Urine WBC (Reflex) 21-25 A /HPF
(0-5)
Urine Bacteria (Reflex) Few A
(Negative)
10/09/24 10:33
10/09/24 10:33
Vital Signs
Initial and Last Documented VS:
Initial Vital Signs
Temp Pulse Resp BP Pulse Ox
97.5 F 104 16 121/87 99
10/09/24 09:15 10/09/24 09:15 10/09/24 09:15 10/09/24 09:15 10/09/24 09:15
Last Documented Vital Signs
Temp Pulse Resp BP Pulse Ox
97.5 F 104 16 121/87 99
10/09/24 09:15 10/09/24 09:15 10/09/24 09:15 10/09/24 09:15 10/09/24 10:13
MDM/Problems Addressed
Differential Diagnosis Includes:
Right flank pain. Consider renal colic versus pyelonephritis versus constipation versus musculoskeletal flank pain
CT pending will check urine and labs.
*Pulse Oximetry
SaO2: 99
Oxygen Mode of Delivery: Room air
Patient hypoxic: no
*Critical Care Note
Total Time (30-74mins, 75-104mins- exclusive of procedures): Not Applicable
Update Note
Update Note:
CT negative for active ureteral stone. There is mild hydronephrosis of the right kidney. Question possibly recently passed stone. Urinalysis without overwhelming signs of infection but culture is pending. If culture is positive, consider
treating with an antibiotic. No indication for admission. Stable for discharge
ED Attending Note
-
Portions of this chart may have been created with voice recognition software.� Occasional wrong word or��sound alike� substitutions may have occurred due to the inherent limitations of voice recognition software.
Discharge Plan
Departure
Patient Disposition: Home (Routine Discharge)
Date of Disposition: 10/09/24
Time of Disposition: 14:13
Patient with high blood pressure during this ER visit?: No
Discharge Problem:
Acute flank pain
Instructions: Flank Pain (DC)
Prescriptions:
No Action
clobetasol 0.05 % Cream
1 applic TOPICAL DAILYPRN PRN (Reason: eczema)
Patient Comments:
left upper chest
gabapentin 800 mg Tablet
800 mg PO BID
pantoprazole 40 mg Tablet,Delayed Release (Dr/Ec)
40 mg PO DAILY
rosuvastatin 20 mg Tablet
20 mg PO HS
insulin glargine [Lantus Solostar U-100 Insulin] 100 unit/mL (3 mL) Insulin Pen
18 unit SC DAILY
Mounjaro 7.5 mg/0.5 mL Pen Injector
7.5 mg SC WE
cyanocobalamin (vitamin B-12) 1,000 mcg Tablet
1,000 mcg PO Q48H
midodrine 2.5 mg Tablet
2.5 mg PO TID
insulin lispro [Humalog KwikPen Insulin] 100 unit/mL Insulin Pen
5 unit SC AC
lidocaine 5 % Ointment
1 applic TOPICAL DAILYPRN PRN (Reason: back pain)
oxycodone 5 mg Tablet
5 mg PO Q4HPRN PRN (Reason: moderate to severe pain) Qty: 15 0RF
acetaminophen 325 mg tablet
650 mg PO PRN PRN (Reason: mild pain/OH/temp> 100.4F)
propranolol 10 mg Tablet
10 mg PO Q12H
Referrals:
Denise Johnson MD [Family Provider, Internal Medicine]
Activity Restrictions/Additional Instructions:
Drink plenty of fluids. Use Tylenol for pain. You should receive a call if your urine culture is positive. Return if worse otherwise
Interventions
Interventions:
*Risk Screen - Suicide Last Done: 10/09/24 09:15
*Neglect/Abuse Screening Last Done: 10/09/24 10:53
*ED- Fall Risk Assessment Last Done: 10/09/24 10:53
*ED COVID-19 Vaccine History Last Done: 10/09/24 10:53
YC-Iyycrz-Dptccftjnm Assessment Last Done: 10/09/24 10:53
ED-Female Genitourinary Assessment Last Done: 10/09/24 10:53
Discharge Date and Time
Print Language: SPANISH
[2024-10-09] MEDS: ZOFRAN 4 MG IV (10:34)
[2024-10-09] MEDS: TORADOL 15 MG IV (10:34)
[2024-10-09] MEDS: NSS 1000 IV (10:34)
[2024-10-09 10:46] LABS: Hematocrit 38.1 % (37.0-47.0); Hemoglobin 12.4 g/dL (12.0-16.0); Mean Corp Hgb Conc. 32.5 g/dL (33.0-37.0); Mean Corpuscular Volume 81.9 fL (81.0-99.0); Nucleated Red Blood Cells % 0 %; Platelet Count 134 10^3/uL (130-400); Red Cell Dist. Width 14.1 % (11.5-14.5)
[2024-10-09 10:58] LABS: ALT (SGPT) 19 U/L (0-35); AST (SGOT) 23 U/L (14-36); Albumin 4.1 g/dl (3.5-5.0); Alkaline Phosphatase 95 U/L (38-126); Blood Urea Nitrogen 15 mg/dl (7-17); Calcium 9.1 mg/dl (8.4-10.2); Carbon Dioxide 26 mmol/L (22-30); Chloride 106 mmol/L (98-107); Glucose 138 mg/dl (70-99); Potassium 4.4 mmol/L (3.5-5.1); Sodium 139 mmol/L (135-145); Total Protein 7.9 g/dl (6.3-8.2); eGFR > 60.00
[2024-10-09 13:31] LABS: Urine Character Clear (Clear)
[2024-10-09 13:47] LABS: Urine Red Blood Cell 0-2 /HPF (0-2); Urine Squamous Cell 0-2 /LPF (Few); Urine White Cell 21-25 /HPF (0-5)
[2024-10-09 14:18] VITALS: BP 117/63
== END 2024-10-09 14:20 | disposition home or self-care (01) ==
LOC: EMR 09:09
PROVIDERS: Physician Assistant; EMERGENCY PHYSICIAN Emergency Medicine; FAMILY PHYSICIAN Internal Medicine
DX: R10.30 Lower abdominal pain, unspecified (principal); N13.30 Unspecified hydronephrosis; E11.9 Type 2 diabetes mellitus without complications; E78.00 Pure hypercholesterolemia, unspecified; I47.10 Supraventricular tachycardia, unspecified; Z87.442 Personal history of urinary calculi; Z79.4 Long term (current) use of insulin; Z98.1 Arthrodesis status
CPT/HCPCS: 99284; 96374; 96375; 96361; 74176; 80053; 81003; 81015; 85025; 87086